=== PATIENT | female | born 1990 | race Caucasian/White ===

== ENCOUNTER 2020-10-07 13:36 | Outpatient (CLI) | payer OTHER, SELFPAY ==
--- NOTE | ~2020-10-07 | US_ITS ---
EXAMINATION: US OB follow up DATE: 10/07/2020 14:23 INDICATION: Routine care during second trimester of TECHNIQUE: Real-time ultrasound of the pelvis was performed. The interpreting radiologist was not pre sent for the study. COMPARISON: None. FINDINGS: There is a single living fetus in breech presentation. The placenta is anterior. heart rate is 150 beats per minute (bpm). The amniotic fluid index is 13.9 cm, which is normal (5th%-95%: 9.8-21. 8 cm at 23 weeks estimated gestational age). The following biometric data were obtained: BPD: 5.7 cm -> 23 weeks 3 days Head circumference: 22.4 cm -> 24 weeks 3 days Abdominal circumference: 19.1 cm -> 23 weeks 6 days Femur length: 4.2 cm -> 23 weeks 4 days These measurements are concordant. Head circumference to abdominal circumference ratio: 1.17 (normal range 1.05-1.21). Estimated weight: 629 g (+/-) 94 g or 1 lbs. 6 oz. (+/-) 3 oz. IMPRESSION: 1. Single living fetus in breech presentation with heart rate of 150 bpm. 2. Gestational age by ultrasound of 23 weeks 6 day(s) +/- 1 week(s) 5 day(s) with ultrasound estimate d date of delivery (DORENE) of 01/28/2021. Estimated weight is 67th percentile by Hadlock criteria when 02/01/2021 is used as the DORENE. Please correlate with clinical information or earlier ultrasounds for most accurate DORENE. 3. Normal amniotic fluid index of 13.9 cm. Reviewed, dictated and finalized at location A. IMPRESSION: 1. Single living fetus in breech presentation with heart rate of 150 bpm. 2. Gestational age by ultrasound of 23 weeks 6 day(s) +/- 1 week(s) 5 day(s) wi th ultrasound estimated date of delivery (DORENE) of 01/28/2021. Estimated we ight is 67th percentile by Hadlock criteria when 02/01/2021 is used as the DORENE. Please correlate with clinical information or earlier ultrasounds for most accu rate DORENE. 3. Normal amniotic fluid index of 13.9 cm.
== END 2020-10-07 13:37 | disposition home or self-care (01) ==
PROVIDERS: PCP Obstetrics & Gynecology; Visit Provider Obstetrics & Gynecology
DX: Z34.92 Encounter for supervision of normal pregnancy, unspecified, second trimester (principal); Z3A.23 23 weeks gestation of pregnancy
CPT/HCPCS: 76816

== ENCOUNTER 2020-10-22 17:32 | Observation (INO) | payer OTHER, SELFPAY ==
--- NOTE | 2020-10-22 17:32 | OBADM ---
This patient, Karen Henderson, admitted to the OB room OB Post 116 for observation. Patient/family oriented to hospital policies and general routines including ID bracelet, bed and alarms, visiting hours, pain management, procedures, bathroom and other care routines, personal items, smoking policy, room service/diet, and visiting hours. Patient/Family are encouraged to report perceived risks to care and to ask questions if they do not understand what they are told or what they should do.
[2020-10-22] MEDS: DEXTROSE 5%/LACTATED RINGERS 1,000 ML 999 ML IV CONT ×2 (18:00→19:02)
[2020-10-22 18:10] VITALS: BMI 20.9
[2020-10-22 18:20] VITALS: BP 93/57; PULSE 79
[2020-10-22 18:45] VITALS: TEMP 36.9
[2020-10-22 18:48] VITALS: BP 103/59; PULSE 68
[2020-10-22 18:53] VITALS: BP 103/59; PULSE 68
--- NOTE | 2020-10-22 20:18 | PC.NURSE ---
Dr. Michaels notifed of pt wanting to go home. Pt feeling much better and denies Nausea, no vomiting during this shift. pt drinking water and has eaten crackers. Orders received for pt to d/c home.
--- NOTE | 2020-10-24 08:17 | PM.OBTRLD ---
OB - Triage/Final Diagnosis Visit Information Comments/Additional reasons for admission: I have assessed the risk for this patient, Karen Henderson, and determined that she would benefit from observation care. Final Diagnosis (1) Hyperemesis gravidarum: Code(s): O21.0 - Mild hyperemesis gravidarum Status: Acute (2) Dehydration: Code(s): E86.0 - Dehydration Status: Acute
== END 2020-10-22 20:49 | disposition home or self-care (01) ==
PROVIDERS: Admitting Provider Obstetrics & Gynecology; PCP Internal Medicine Infectious Disease; Visit Provider Obstetrics & Gynecology
DX: O21.1 Hyperemesis gravidarum with metabolic disturbance (principal); Z3A.25 25 weeks gestation of pregnancy
CPT/HCPCS: 59025; 96360; G0378; G0379; J7121

== ENCOUNTER 2021-01-16 11:09 | Inpatient (IN) | payer OTHER, SELFPAY ==
[2021-01-16] VITALS (93 sets, daily range): BP systolic 69–139; BP diastolic 16–87; PULSE 53–123; RESP 18; TEMP 36.6–37.1; O2SAT 93–100; BMI 24.0
[2021-01-16 12:12] LABS: Basophils Percent Auto 0.2 % (0.2-1.2); Eosinophils Percent Auto 0.3 % (0-4.4); Hemoglobin 11.2 g/dL (12.0-15.0); Immature Granulocyte Absolute 0.05 K/mm3 (0.00-0.031); Immature Granulocyte Percent A 0.5 % (0-0.5); Lymphocytes Percent Auto 11.4 % (18.3-44.2); Mean Corpuscular HGB Conc 32.9 g/dl (32-36); Mean Corpuscular Hemoglobin 29.2 pg (26-34); Mean Corpuscular Volume 88.8 fl (80-100); Mean Platelet Volume 9.4 fl (7.4-10.4); Monocytes Absolute Auto 0.5 K/mm3 (0.1-0.6); Monocytes Percent Auto 5.5 % (2.6-8.5); Neutrophils Absolute Auto 7.9 K/mm3 (1.3-6.7); Neutrophils Percent Auto 82.1 % (45.5-73.1); Platelet Count Result 211 k/mm3 (150-375); Red Blood Count 3.83 M/mm3 (4.2-5.4); Red Cell Distribution Width 13.4 % (11.5-14.5); White Blood Count 9.6 K/mm3 (4.5-10.0)
[2021-01-16] MEDS: LACTATED RINGERS 1,000 ML 125 ML IV CONT (12:19)
[2021-01-16] MEDS: AMPICILLIN 2 GM/NS 100 ML 2 GM/100 ML BAG IVPB (12:21)
[2021-01-16] MEDS: LACTATED RINGERS 1,000 ML 999 ML IV CONT ×2 (12:49→13:47)
[2021-01-16 13:05] LABS: HIV 1/2 Ab P24 Ag Result Negative (Negative)
--- NOTE | 2021-01-16 13:30 | WPDANESEPP ---
Anes - Eval Pre Procedure Procedure: labor pain management Date/Time: 01/16/21 13:30 Surgeon: Renetta Preop Diagnosis: Pain During Labor Pre Op Diagnosis: Leaking fluid Patient Data Age: 30 Gender: F Height: 1.75 m Weight: 74 kg Last Vital Signs Temp 98.8 F 01/16/21 12:48 Pulse 72 01/16/21 13:28 BP 110/65 01/16/21 13:28 Pulse Ox 99 01/16/21 13:29 Allergies Allergy/AdvReac Type Severity Reaction Status Date / Time No Known Drug Allergies Allergy Verified 10/22/20 17:48 Home Medications Medication Instructions Recorded Confirmed Type aspirin 81 mg PO BID 10/22/20 10/22/20 History lamotrigine [Lamictal] 25 mg PO BID 10/22/20 10/22/20 History Laboratory Tests 01/16/21 01/16/21 01/16/21 12:05 12:05 12:05 WBC 9.6 K/mm3 K/mm3 (4.5-10.0) RBC 3.83 M/mm3 L M/mm3 (4.2-5.4) Hgb 11.2 g/dL L g/dL (12.0-15.0) Hct 34.0 % L % (37.0-47.0) MCV 88.8 fl fl (80-100) MCH 29.2 pg pg (26-34) MCHC 32.9 g/dl g/dl (32-36) RDW 13.4 % % (11.5-14.5) Plt Count 211 k/mm3 k/mm3 (150-375) MPV 9.4 fl fl (7.4-10.4) Immature Gran % (Auto) 0.5 % % (0-0.5) Neut % (Auto) 82.1 % H % (45.5-73.1) Lymph % (Auto) 11.4 % L % (18.3-44.2) [place] % (Auto) 5.5 % % (2.6-8.5) Eos % (Auto) 0.3 % % (0-4.4) Baso % (Auto) 0.2 % % (0.2-1.2) Lymph # (Auto) 1.10 K/mm3 K/mm3 (0.9-3.2) [place] # (Auto) 0.5 K/mm3 K/mm3 (0.1-0.6) Eos # (Auto) 0.0 K/mm3 K/mm3 (0-0.3) Baso # (Auto) 0.0 K/mm3 K/mm3 (0.0-0.1) Abs Immat Gran (auto) 0.05 K/mm3 H K/mm3 (0.00-0.031) Absolute Neuts (auto) 7.9 K/mm3 H K/mm3 (1.3-6.7) Absolute Nucleated RBC 0.0 K/mm3 K/mm3 (0.0-0.012) Nucleated RBC % 0.0 % % (0.0-0.2) RPR Pending HIV 1&2 Ab/P24 Ag 4thGn Blood Type AB Positive Antibody Screen Negative 01/16/21 12:05 WBC RBC Hgb Hct MCV MCH MCHC RDW Plt Count MPV Immature Gran % (Auto) Neut % (Auto) Lymph % (Auto) [place] % (Auto) Eos % (Auto) Baso % (Auto) Lymph # (Auto) [place] # (Auto) Eos # (Auto) Baso # (Auto) Abs Immat Gran (auto) Absolute Neuts (auto) Absolute Nucleated RBC Nucleated RBC % RPR HIV 1&2 Ab/P24 Ag 4thGn Negative (Negative) Blood Type Antibody Screen : gestational age (edc 01/28/21) HCG: positive Patient hx anesthesia problems: none Family hx anesthesia problems: none PMFSH Past Medical History Medical History (Updated 01/16/21 @ 13:33 by Martha Redd CRNA) Pain during labor Polysubstance abuse marijuana & meth. Severe bipolar disorder Tobacco abuse Social History Social History Smoking packs per day: 0.5 Smoking cigarettes per day: 10.0 Years smoked: 15 Smoking pack-years: 7.50 Smoking status: Current every day smoker Tobacco type: cigarettes Second hand tobacco smoke exposure: Yes Substance use: current Spiritual care concerns: No Exam Day of Procedure 01/16/21 13:30
[2021-01-16] MEDS: OXYTOCIN 30 UNITS/NS 500 ML 30 UNITS/500 ML BAG IV CONT (14:13)
[2021-01-16 14:18] LABS: Amphetamine Screen Urine Negative (Negative); Barbiturate Screen Urine Negative (Negative); Benzodiazepines Screen Urine Negative (Negative); Cannabinoid Screen Urine Positive (Negative); Cocaine Screen Urine Negative (Negative); Methadone Screen Urine Negative (Negative); Opiate Screen Urine Negative (Negative); Phencyclidine Screen Urine Negative (Negative)
[2021-01-16] MEDS: ePHEDrine sulfate INJ 50 MG/ML AMPUL IV PUSH (14:30)
--- NOTE | 2021-01-16 15:32 | PM.OBPRVD ---
OB - Delivery Note Procedure Route of delivery: Specimen: Yes Quantitative Blood Loss (ml): 200 Anesthesia type: Epidural Disposition: floor Narrative: Patient was prepped and draped in usual manner for this procedure. Maternal expulsive efforts readily delivered vertex and rest of baby without difficulty. Cord was clamped and cut and placenta delivered spontaneously. Baby was passed off the matching machine operator in attendance. Uterus was well contracted with minimal bleeding. Cervix vagina vulva were inspected with no lacerations or tears. [place] Baby Weeks of gestation at delivery: 38 Infant gender: Male
[2021-01-16] MEDS: OXYTOCIN 30 UNITS/NS 500 ML 30 UNITS/500 ML BAG 125 UNITS IV CONT (15:55)
[2021-01-16] MEDS: ONDANSETRON INJ 4 MG/2 ML VIAL IV PUSH (17:04)
[2021-01-16] MEDS: IBUPROFEN 600 MG TABLET PO (19:01)
--- NOTE | 2021-01-16 21:46 | PC.NURSE ---
@ 1814 on 01/16/2021 Patient transferred to post room #279. Support person present (her brother). Oriented to unit, room, information board, rooming in, admission packet and security measures. Patient verbalizes understanding.
[2021-01-16] MEDS: FLUVOXAMINE 100MG TABLET 1 EACH PO (22:27)
[2021-01-16] MEDS: LAMOTRIGINE 100MG TABLET 1 EACH PO (22:28)
--- NOTE | 2021-01-17 04:01 | PHAR ---
HOME FLUVOXAMINE 100MG TABLET - TAKE ON TABLET BY MOUTH EVERY DAY IN THE MORNING & LAMOTRIGINE 100MG PO BID VERIFIED IN THE PHARMACY AND SENT BACK TO OB2ND @ 22:00
[2021-01-17 04:15] VITALS: BP 113/65; PULSE 61; RESP 18; TEMP 37.1; O2SAT 97
[2021-01-17] MEDS: IBUPROFEN 600 MG TABLET PO ×3 (04:29→15:58)
[2021-01-17 04:47] LABS: Hematocrit 32.4 % (37.0-47.0); Hemoglobin 10.1 g/dL (12.0-15.0)
[2021-01-17 07:05] VITALS: BP 124/74; PULSE 52; RESP 18; TEMP 36.4; O2SAT 100
--- NOTE | 2021-01-17 07:45 | PM.OBDSVD ---
DS: Admitting Diagnosis Discharge Date 01/17/2021 Admitting Diagnosis OB - DS: Summary OB Procedures : None OB Procedures Intrapartum: Spontaneous Vag Delivery OB Procedures: : None Time Spent with Patient Time attestation: Total time spent providing and/or coordinating discharge services: DS: Data Data Completed and Pending Labs on day of discharge: Labs from last 24 hours 01/17/21 01/16/21 01/16/21 04:17 13:45 12:05 WBC RBC Hgb 10.1 L Hct 32.4 L MCV MCH MCHC RDW Plt Count MPV Immature Gran % (Auto) Neut % (Auto) Lymph % (Auto) [place] % (Auto) Eos % (Auto) Baso % (Auto) Lymph # (Auto) [place] # (Auto) Eos # (Auto) Baso # (Auto) Abs Immat Gran (auto) Absolute Neuts (auto) Absolute Nucleated RBC Nucleated RBC % Urine Opiates Screen Negative Urine Methadone Screen Negative Ur Barbiturates Screen Negative Ur Phencyclidine Scrn Negative Ur Amphetamine Screen Negative U Benzodiazepines Scrn Negative Urine Cocaine Screen Negative U Cannabinoids Screen Positive A RPR HIV 1&2 Ab/P24 Ag 4thGn Negative Blood Type Antibody Screen 01/16/21 01/16/21 01/16/21 12:05 12:05 12:05 WBC 9.6 RBC 3.83 L Hgb 11.2 L Hct 34.0 L MCV 88.8 MCH 29.2 MCHC 32.9 RDW 13.4 Plt Count 211 MPV 9.4 Immature Gran % (Auto) 0.5 Neut % (Auto) 82.1 H Lymph % (Auto) 11.4 L [place] % (Auto) 5.5 Eos % (Auto) 0.3 Baso % (Auto) 0.2 Lymph # (Auto) 1.10 [place] # (Auto) 0.5 Eos # (Auto) 0.0 Baso # (Auto) 0.0 Abs Immat Gran (auto) 0.05 H Absolute Neuts (auto) 7.9 H Absolute Nucleated RBC 0.0 Nucleated RBC % 0.0 Urine Opiates Screen Urine Methadone Screen Ur Barbiturates Screen Ur Phencyclidine Scrn Ur Amphetamine Screen U Benzodiazepines Scrn Urine Cocaine Screen U Cannabinoids Screen RPR Pending HIV 1&2 Ab/P24 Ag 4thGn Blood Type AB Positive Antibody Screen Negative Discharge Plan Discharge Attending physician on discharge: Brando,Luis M S. Discharging Clinician: Ronny Jackson Anticipated Discharge Date/Time: 01/17/21 07:49 Patient Disposition: Home, Self-Care Activity: as tolerated Diet: as tolerated Discharge Instructions: Education: Mom and Baby Guide Given to: Mother Follow-Up: Call your delivering provider's office for an appointment to be seen in: 3 Weeks Mom and baby should come to the [facility] for the follow-up appointment. Appointment Date/Time: January 20, 2021 at 8:00 am What to expect at your follow-up visit: Physical Assessment Call [phone] if you are unable to keep your appointment time. BREAST CARE: * Wear a snug supportive bra. * For engorgement discomfort: Breast Feeding: * Apply warm moist washcloths * Express milk as needed to relieve engorgement * Wear loose clothing Bottle Feeding: * May apply ice packs * For sore nipples: * Identify correct latch-on * Apply warm moist washcloths before and after nursing * Air dry nipples after nursing * May apply Lansinoh cream to nipples ABDOMINAL INCISION: (if applicable) * Allow incision to air dry * Do NOT use lotions for powders on your incision * When showering, allow soap and water to run over the incision, but do not wash incision EPISIOTOMY/PERINEAL CARE: * Until bleeding stops, use your bc bottle after urinating * Change your pad frequently throughout the day * You may take sitz baths several times a day (fill your bathtub with warm water and soak for 20 minutes.) Do NOT bathe in the water * No tub baths until seen by your physician - You may shower ACTIVITY: * Rest as much as possible. * Do not exercise or lift anything heavier than your baby (such as l
--- NOTE | 2021-01-17 07:50 | PM.OBDSVD ---
DS: Admitting Diagnosis Discharge Date 01/17/21 Admitting Diagnosis OB - DS: Summary OB Procedures : None OB Procedures Intrapartum: Spontaneous Vag Delivery OB Procedures: : None Time Spent with Patient Time attestation: Total time spent providing and/or coordinating discharge services: DS: Data Data Completed and Pending Labs on day of discharge: Labs from last 24 hours 01/17/21 01/16/21 01/16/21 04:17 13:45 12:05 WBC RBC Hgb 10.1 L Hct 32.4 L MCV MCH MCHC RDW Plt Count MPV Immature Gran % (Auto) Neut % (Auto) Lymph % (Auto) [place] % (Auto) Eos % (Auto) Baso % (Auto) Lymph # (Auto) [place] # (Auto) Eos # (Auto) Baso # (Auto) Abs Immat Gran (auto) Absolute Neuts (auto) Absolute Nucleated RBC Nucleated RBC % Urine Opiates Screen Negative Urine Methadone Screen Negative Ur Barbiturates Screen Negative Ur Phencyclidine Scrn Negative Ur Amphetamine Screen Negative U Benzodiazepines Scrn Negative Urine Cocaine Screen Negative U Cannabinoids Screen Positive A RPR HIV 1&2 Ab/P24 Ag 4thGn Negative Blood Type Antibody Screen 01/16/21 01/16/21 01/16/21 12:05 12:05 12:05 WBC 9.6 RBC 3.83 L Hgb 11.2 L Hct 34.0 L MCV 88.8 MCH 29.2 MCHC 32.9 RDW 13.4 Plt Count 211 MPV 9.4 Immature Gran % (Auto) 0.5 Neut % (Auto) 82.1 H Lymph % (Auto) 11.4 L [place] % (Auto) 5.5 Eos % (Auto) 0.3 Baso % (Auto) 0.2 Lymph # (Auto) 1.10 [place] # (Auto) 0.5 Eos # (Auto) 0.0 Baso # (Auto) 0.0 Abs Immat Gran (auto) 0.05 H Absolute Neuts (auto) 7.9 H Absolute Nucleated RBC 0.0 Nucleated RBC % 0.0 Urine Opiates Screen Urine Methadone Screen Ur Barbiturates Screen Ur Phencyclidine Scrn Ur Amphetamine Screen U Benzodiazepines Scrn Urine Cocaine Screen U Cannabinoids Screen RPR Pending HIV 1&2 Ab/P24 Ag 4thGn Blood Type AB Positive Antibody Screen Negative Discharge Plan Discharge Attending physician on discharge: Luis M Michaels Discharging Clinician: Ronny Jackson Anticipated Discharge Date/Time: 01/17/21 07:49 Patient Disposition: Home, Self-Care Activity: as tolerated Diet: as tolerated Discharge Instructions: Education: Mom and Baby Guide Given to: Mother Follow-Up: Call your delivering provider's office for an appointment to be seen in: 3 Weeks Mom and baby should come to the [facility] for the follow-up appointment. Appointment Date/Time: January 20, 2021 at 8:00 am What to expect at your follow-up visit: Physical Assessment Call [phone] if you are unable to keep your appointment time. BREAST CARE: * Wear a snug supportive bra. * For engorgement discomfort: Breast Feeding: * Apply warm moist washcloths * Express milk as needed to relieve engorgement * Wear loose clothing Bottle Feeding: * May apply ice packs * For sore nipples: * Identify correct latch-on * Apply warm moist washcloths before and after nursing * Air dry nipples after nursing * May apply Lansinoh cream to nipples ABDOMINAL INCISION: (if applicable) * Allow incision to air dry * Do NOT use lotions for powders on your incision * When showering, allow soap and water to run over the incision, but do not wash incision EPISIOTOMY/PERINEAL CARE: * Until bleeding stops, use your bc bottle after urinating * Change your pad frequently throughout the day * You may take sitz baths several times a day (fill your bathtub with warm water and soak for 20 minutes.) Do NOT bathe in the water * No tub baths until seen by your physician - You may shower ACTIVITY: * Rest as much as possible. * Do not exercise or lift anything heavier than your baby (such as perez
[2021-01-17] MEDS: POLYSACCHARIDE IRON COMPLEX 150 MG CAPSULE PO (09:58)
[2021-01-17] MEDS: lamoTRIgine 100 MG TABLET PO (09:59)
[2021-01-17] MEDS: MULTIVIT/MIN/PREN/FOL AC/IRON TABLET 1 TAB PO (10:00)
--- NOTE | 2021-01-17 13:16 | WPDANLDPN2 ---
Anes-Prog Note L&D Date/Time: 01/17/21 13:16 Comfortable throughout: labor and delivery Neuraxial method: epidural Neuro status: Neuro function grossly intact. Cardiovascular status: normal Respiratory status: normal Airway patency: baseline Mental status: baseline Post-Op hydration status: normal Vital Signs: Last Vital Signs Temp 36.4 C L 01/17/21 07:05 Pulse 52 L 01/17/21 07:05 Resp 18 01/17/21 07:05 BP 124/74 01/17/21 07:05 Pulse Ox 100 01/17/21 07:05 Pain score (VAS): 0 I/O: Intake & Output 01/16/21 01/17/21 01/17/21 23:59 07:59 15:59 Output Total 400 Balance -400 Post-procedural complaints: none Patient feedback: Patient satisfied with anesthetic care.
[2021-01-17] MEDS: DOCUSATE SODIUM 100 MG CAPSULE PO (15:58)
--- NOTE | 2021-01-17 16:13 | PCCCNOTE ---
Addendum entered by LUL Hirsch 01/18/21 07:06: Received email confirmation from DCFS that they will not take a report. Original Note: Care Coordination Consult: Met with pt. and her brother Sekou today. Pt. lives at home with Sekou and her parents. This is pt.'s 3rd child. FOB is not involved. Pt. has all necessary equipment for baby at home including a crib, car seat, clothing, diapers, and bottles. Has a supportive family. resources were provided. Pt. aware she tested positive for marijuana, also now aware that baby tested positive for marijuana in UDS screen. Meconium is pending. Per nursing pt. did have a positive methamphetamine test at a appointment. Pt. denies any substance use now besides marijuana. Denies a reliance on marijuana. Was offered substance abuse resources but declined. CC informed pt. a DCFS report will be filed and they will determine if they will meet with pt. or provide services. Completed DCFS report # [id number].
--- NOTE | 2021-01-17 16:56 | PM.OBDSVD ---
DS: Admitting Diagnosis Discharge Date 01/17/21 Admitting Diagnosis OB - DS: Summary OB Procedures : None OB Procedures Intrapartum: Spontaneous Vag Delivery OB Procedures: : None Time Spent with Patient Time attestation: Total time spent providing and/or coordinating discharge services: DS: Data Data Completed and Pending Labs on day of discharge: Labs from last 24 hours 01/17/21 04:17 Hgb 10.1 L Hct 32.4 L Discharge Plan Discharge Attending physician on discharge: Luis M Michaels Discharging Clinician: Ronny Jackson Anticipated Discharge Date/Time: 01/17/21 07:49 Patient Disposition: Home, Self-Care Activity: as tolerated Diet: as tolerated Discharge Instructions: Education: Mom and Baby Guide Given to: Mother Follow-Up: Call your delivering provider's office for an appointment to be seen in: 3 Weeks Mom and baby should come to the [facility] for the follow-up appointment. Appointment Date/Time: January 20, 2021 at 8:00 am What to expect at your follow-up visit: Physical Assessment Call [phone] if you are unable to keep your appointment time. BREAST CARE: * Wear a snug supportive bra. * For engorgement discomfort: Breast Feeding: * Apply warm moist washcloths * Express milk as needed to relieve engorgement * Wear loose clothing Bottle Feeding: * May apply ice packs * For sore nipples: * Identify correct latch-on * Apply warm moist washcloths before and after nursing * Air dry nipples after nursing * May apply Lansinoh cream to nipples ABDOMINAL INCISION: (if applicable) * Allow incision to air dry * Do NOT use lotions for powders on your incision * When showering, allow soap and water to run over the incision, but do not wash incision EPISIOTOMY/PERINEAL CARE: * Until bleeding stops, use your bc bottle after urinating * Change your pad frequently throughout the day * You may take sitz baths several times a day (fill your bathtub with warm water and soak for 20 minutes.) Do NOT bathe in the water * No tub baths until seen by your physician - You may shower ACTIVITY: * Rest as much as possible. * Do not exercise or lift anything heavier than your baby (such as laundry or other children.) * Avoid stairs or driving as much as possible. * Do not put anything into the vagina. No douching, tampons, or sexual activity until seen by physician. NOTIFY PHYSICIAN IF YOU HAVE ANY QUESTIONS OR IF ANY OF THE FOLLOWING SYMPTOMS OCCUR: * If your episiotomy or incision becomes red, swollen, or more painful than what you have experienced in the hospital. * If your vaginal bleeding becomes foul smelling. * If your vaginal bleeding becomes more heavy than a period or if your bleeding changes from pink to bright red. However, you may pass an occasional walnut-sized clot once or twice for the first week . * If you experience a sharp, shooting pain in you calves. * If you discover a hard, reddened area on your breast or if you experience flu-like symptoms. DIET: * Eat regular, well-balanced meals. * Drink plenty of fluids daily. If , drink to thirst. Patient Instructions: Antibiotic Form Stand Alone Forms: General Discharge Information Follow-up/Referrals: Luis M Michaels MD [Physician] - 3 Weeks Discharge Medications: New ibuprofen 600 mg Tablet 600 mg PO Q6H PRN (Reason: Cramping) Qty: 20 RF: 0 Continued lamotrigine [Lamictal] 25 mg Tablet 100 mg PO BID RF: 0 fluvoxamine 100 mg Tablet 100 mg PO TID RF: 0 28-800 mg-mcg Tablet 1 tablet PO DAILY RF: 0 Discontinued aspirin 81 mg Tablet 81 mg PO BID RF: 0 Date of admission: 01/16/21 11:09 Primary Care Provider: CarolBrielle Admitting Provider: Ronny Jackson Attending physician
[2021-01-19 09:30] LABS: Rapid Plasma Reagin Non-Reactive (NonReactive)
[2021-01-20 07:51] VITALS: BP 130/79; PULSE 67; RESP 20; TEMP 37.2; O2SAT 99
== END 2021-01-17 17:06 | disposition home or self-care (01) | DRG 560 ==
LOC: ANHOBOP 11:19 → ANHLDR 11:35 → ANHOB2 18:20
PROVIDERS: Admitting Provider Obstetrics & Gynecology; PCP Internal Medicine Infectious Disease; Visit Provider Obstetrics & Gynecology
DX: O99.344 Other mental disorders complicating childbirth (principal); Z37.0 Single live birth; Z3A.38 38 weeks gestation of pregnancy; O36.8330 Maternal care for abnormalities of the fetal heart rate or rhythm, third trimester, not applicable or unspecified; F31.9 Bipolar disorder, unspecified; O99.334 Smoking (tobacco) complicating childbirth; F17.210 Nicotine dependence, cigarettes, uncomplicated; O99.324 Drug use complicating childbirth; F12.10 Cannabis abuse, uncomplicated
CPT/HCPCS: 36415; 80307; 85014; 85018; 85025; 86592; 86703; 86850; 86900; 86901; 88307; A9270; G0432; J0290; J2405; J2590; J2795; J7120

== ENCOUNTER 2021-08-07 13:47 | Emergency (ER) | payer OTHER, SELFPAY ==
[2021-08-07 13:49] VITALS: BP 135/70; PULSE 79; RESP 16; TEMP 36.8; O2SAT 99
== END 2021-08-07 15:38 | disposition left against medical advice (07) ==
PROVIDERS: PCP Internal Medicine Infectious Disease
DX: R10.2 Pelvic and perineal pain (principal)
CPT/HCPCS: 99199

== ENCOUNTER 2023-05-28 11:32 | Emergency (ER) | payer OTHER, SELFPAY ==
--- NOTE | ~2023-05-28 | CT_ITS ---
EXAMINATION: CT lumbar spine wo con DATE: 05/28/2023 13:38 INDICATION: L lower back pain, radiating to thigh . TECHNIQUE: Computed tomography (CT) of the lumbar spine was performed without intravenous contrast. A utomated exposure control and iterative reconstruction technique were employed. The dose-length produ ct was 601.27 mGy-cm. COMPARISON: None. FINDINGS: 5 nonrib-bearing lumbar-type vertebral bodies. Pedicles intact. Normal vertebral body align ment. Vertebral body heights preserved. Mild loss of disc height at L3-4, with mild diffuse bulge and mild central canal narrowing. Moderate loss of disc height at L4-5 with a prominent diffuse annular bulge and a tiny 3 mm central protrusion that contribute to moderate central canal stenosis and moder ate bilateral neural foraminal narrowing. Moderate facet arthropathy at L4-5 and L5-S1. Mild arthropa thy at L3-4. No severe central canal or neural foraminal narrowing. IMPRESSION: No acute fracture or traumatic malalignment in the lumbar spine. Moderate degenerative disc disease, moderate diffuse bulge and tiny central protrusion at L4-5, causi ng moderate central canal and moderate bilateral neural foraminal narrowing at that level. Multilevel facet arthropathy. Reviewed, dictated and finalized at location [facility]. LOGGER IMPRESSION: No acute fracture or traumatic malalignment in the lumbar spine. Moderate degenerative disc disease, moderate diffuse bulge and tiny central pro trusion at L4-5, causing moderate central canal and moderate bilateral neural f oraminal narrowing at that level. Multilevel facet arthropathy.
[2023-05-28 11:35] VITALS: BP 121/69; PULSE 80; RESP 18; TEMP 36.6; O2SAT 96
--- NOTE | 2023-05-28 11:57 | ED.GENADULT ---
HPI - General Adult General Chief complaint: Extremity Injury, Lower Stated complaint: Left Back/Hip Pain x multiple weeks Time Seen by Provider: 05/28/23 11:38 Source: patient Mode of arrival: ambulatory Limitations: no limitations History of Present Illness HPI narrative: this is a 32-year-old female who presents to the ED with chief complaint of left lower back pain for the past couple of weeks. Reports that is radiating into the left hip and left thigh area. Denies any history of back pain. 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 States the pain is worse with walking and with standing directly on the left leg. Denies fevers, chills, nausea, vomiting, groin numbness, weakness the legs, bowel or bladder dysfunction. Denies chronic steroid use or any immunosuppressive conditions. Admits to marijuana use but denies any history of IV drug use. states she has not really tried any medications yet for this pain. Related Data Home Medications Medication Instructions Recorded Confirmed lamotrigine 25 mg tablet (Lamictal) 100 mg PO BID 10/22/20 01/16/21 fluvoxamine 100 mg tablet 100 mg PO TID 01/16/21 01/16/21 vit no.133-ferrous 1 tablet PO DAILY 01/16/21 01/16/21 fumarate 28 mg-folic acid 800 mcg tablet () Allergies Allergy/AdvReac Type Severity Reaction Status Date / Time No Known Drug Allergies Allergy Verified 10/22/20 17:48 Review of Systems Review of Systems: All systems as dictated in [facility] Past Medical History Medical History (Updated 05/28/23 @ 14:41 by Elier Melissa PA-C) Pain during labor Polysubstance abuse marijuana & meth. Severe bipolar disorder Tobacco abuse Social History Social History Smoking packs per day: 0.5 Smoking cigarettes per day: 10.0 Years smoked: 15 Smoking pack-years: 7.50 Smoking status: Current every day smoker Tobacco type: cigarettes Second hand tobacco smoke exposure: Yes Substance use: current Spiritual care concerns: No Exam Narrative: GENERAL: Well-appearing, well-nourished, and in no acute distress. HEAD: Normocephalic, atraumatic. EYES: PERRLA and EOMI. ENT: Nares clear, no rhinorrhea or epistaxis. Mucous membranes moist. Oropharynx without tonsillar hypertrophy exudate or other lesions. NECK: Supple. No adenopathy or masses. CHEST: No respiratory distress. Clear to auscultation. No wheezes rales or rhonchi HEART: Regular rate and rhythm. No murmur heard. Normal peripheral pulses. ABDOMEN: Soft, nontender, nondistended, normal active bowel sounds. MSK: Moderate tenderness to the left lower paraspinal muscles of the lumbar spine. Tenderness around the left SI as well. No midline tenderness throughout the spine. Straight leg raise on the left equivocal. Straight leg raise on the right negative. SKIN: Warm, dry, no rash. NEURO: Alert and oriented x3. No focal deficits. No saddle anesthesia. 5/5 strength and sensation in the upper and lower extremities. PSYCH: Normal mood and affect. Course Vital Signs Vital signs: Vital Signs Temperature 97.9 F 05/28/23 11:35 Pulse Rate 80 05/28/23 11:35 Respiratory Rate 18 05/28/23 11:35 Blood Pressure 121/69 05/28/23 11:35 Pulse Oximetry 96 05/28/23 11:35 Oxygen Delivery Room Air 05/28/23 11:35 Temperature 97.9 F 05/28/23 11:35 Pulse Rate 76 05/28/23 15:14 Respiratory Rate 20 05/28/23 15:14 Blood Pressure 133/64 05/28/23 15:14 Pulse Oximetry 100 05/28/23 15:14 Oxygen Delivery Room Air 05/28/23 11:35 Medical Decision Making [facility] Narrative Medical decision making narrative: This is a 32-year-old female who presents to the ED with chief complaint of low back pain for the past couple of weeks. Vitals are normal. exam shows some tenderness to the left lower paraspinal muscles and left SI. No red flag back signs. Ct yovanny
[2023-05-28] MEDS: ACETAMINOPHEN 500 MG TABLET 1000 MG PO (12:54)
[2023-05-28] MEDS: IBUPROFEN 400 MG TABLET 800 MG PO (12:56)
[2023-05-28 15:14] VITALS: BP 133/64; PULSE 76; RESP 20; O2SAT 100
== END 2023-05-28 15:15 | disposition home or self-care (01) ==
PROVIDERS: Emergency Provider Physician Assistant
DX: M51.16 Intervertebral disc disorders with radiculopathy, lumbar region (principal); F17.210 Nicotine dependence, cigarettes, uncomplicated
CPT/HCPCS: 72131; 81025; 99284; A9270

== ENCOUNTER 2023-06-23 13:49 | Outpatient (CLI) | payer OTHER, SELFPAY ==
[2023-06-23 19:09] LABS: Rheumatoid Factor < 12.0 IU/ML (<12)
[2023-06-23 19:19] LABS: Hematocrit 43.5 % (37.0-47.0); Hemoglobin 13.8 g/dL (12.0-15.0); Mean Corpuscular HGB Conc 31.7 g/dl (32-36); Mean Corpuscular Hemoglobin 30.3 pg (26-34); Mean Corpuscular Volume 95.6 fl (80-100); Mean Platelet Volume 9.6 fl (7.4-10.4); Platelet Count Result 213 k/mm3 (150-375); Red Blood Count 4.55 M/mm3 (4.2-5.4); Red Cell Distribution Width 12.6 % (11.5-14.5); White Blood Count 6.9 K/mm3 (4.5-10.0)
[2023-06-23 19:44] LABS: Alanine Aminotransferase 12 U/L (6-35); Albumin Level 4.4 g/dL (3.5-5.1); Alkaline Phosphatase 78 U/L (38-126); Anion Gap 3 mmol/L (8-16); Aspartate Amino Transferase 49 U/L (14-36); Bilirubin,Total 0.4 mg/dL (0.2-1.3); Blood Urea Nitrogen 17 mg/dL (7-17); Calcium 9.6 mg/dL (8.4-10.2); Carbon Dioxide 30 mmol/L (22-30); Chloride 107 mmol/L (98-107); Cholesterol 144 mg/dL (0-200); Estimated Glomerular Filt Rate > 60; Glucose 70 mg/dL (65-110); HDL Direct 62 mg/dL; Sodium 140 mmol/L (137-145); Triglycerides 100 mg/dL (<150)
[2023-06-23 19:46] LABS: Vitamin D 25 Hydroxy 42.6 ng/mL
[2023-06-23 19:55] LABS: LDL Cholesterol Direct 62 mg/dL
[2023-06-23 20:13] LABS: Thyroid Stimulating Hormone 0.708 uIU/mL (0.465-4.680)
[2023-06-23 22:33] LABS: Folic Acid 10.9 ng/mL (2.76->20)
[2023-06-29 11:57] LABS: Anti Nuclear Antibody Pattern Nuclear, Speckled; Anti Nuclear Antibody Titer 1:40 (Negative)
[2023-06-29 16:04] LABS: HLA B27 Negative (Negative)
== END 2023-06-23 13:50 | disposition home or self-care (01) ==
LOC: ANHBWCLAB 13:50
PROVIDERS: PCP Nurse Practitioner Adult Health; Visit Provider Nurse Practitioner Adult Health
DX: M19.90 Unspecified osteoarthritis, unspecified site (principal); R53.83 Other fatigue; Z13.9 Encounter for screening, unspecified; M47.9 Spondylosis, unspecified
CPT/HCPCS: 36415; 80053; 80061; 82306; 82607; 82746; 84443; 85027; 86038; 86039; 86430; 86812

== ENCOUNTER 2023-08-09 10:30 | Outpatient (RCR) | payer OTHER, SELFPAY ==
--- NOTE | 2023-07-12 16:25 | PCPTNOTE ---
pt did not show for today's PT evaluation appt.
--- NOTE | 2023-07-26 13:31 | OPREHPOC ---
Outpatient Therapy Plan of Care This is a Multidisciplinary Plan of Care that may contain components documented by all disciplines (PT, OT, and ST.) PT Problem 1 PT Problem #1 Knowledge Deficit PT Goal 1 Goal 1* indep with HEP 2* correct posture of back with exercises PT Problem 2 PT Problem #2 Pain PT Goal 1 Goal 1* pain rating at worst of 2/10 2* pt report times of NO pain 3* self assessment Oswestry score of 10% limitation PT Problem 3 PT Problem #3 Impaired Strength PT Goal 1 Goal 1* pt transfer sit to stand without an increase in pain 2* increase trunk strength: pt perform sitting ball exercises x 15 reps with good stability PT Problem 4 PT Problem #4 Impaired Flexibility PT Goal 1 Goal improve flexibility of L hip, to decrease imbalance R/L hips, to improve position of spine: 1* hamstring with supine SLR 60' 2* piriformis supine with hip and knee > 90' pt report NOT tight feeling in hip 3* anterior hip/quad with prone knee flexion 145'
--- NOTE | 2023-07-26 13:31 | PTOPEVAL1 ---
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 Gradual onset without injury. Her current job requires lifting, pulling, pushing and physical tasks, up to 100# lifting per pt. She does not perform any fitness activity. Self assessment with functional mobility of Oswestry of 16% limitation in activity. With the evaluation: she has poor standing position of trunk with R forward rotation; tightness over L hamstring, quad and anterior hip and piriformis muscles; weakness over trunk; spasms over thoracic paraspinals on R with forward rotation. Skilled PT services are indicated for modalities to decrease pain and spasms; therapeutic exercises to increase strength and flexibility of trunk and hips, with education for HEP and posture correction. Plan of Care Interventions Elec
--- NOTE | 2023-08-11 14:00 | PCPTNOTE ---
Patient was a No Show for Today's appointment.
--- NOTE | 2023-08-16 13:18 | PCPTNOTE ---
Pt no showed visit today for 2nd time. LM of appt time and date of next visit.
--- NOTE | 2023-08-18 10:51 | PCPTNOTE ---
Pt. did not show for her appointment this date. Left voicemail letting pt. know she would be discharged from therapy at this time if we don't hear back from her by the end of the day.
--- NOTE | 2023-08-19 10:26 | PCPTNOTE ---
called pt and left voice message: reeval appt next week--? attend or not; d/c PT if she does not call by the end of the day.
--- NOTE | 2023-08-23 15:50 | PTOPDC ---
Assessment and note entered by Jenny Brewer, PT Discharge Information Assessment Status Discharge - Pt Not Present Diagnosis low back pain Onset Mar 2023 Assessment PT Clinical Summary Karen has received 4 PT sessions, from July 25 to August 08. She did not show for 3 appointments. Therefore, she will be discharged at this time. Discharge PT. The goals were not addressed. Plan of Care PT Services Indicated No
== END 2023-08-23 17:13 | disposition home or self-care (01) ==
LOC: ANHPT 10:30
PROVIDERS: PCP Nurse Practitioner Adult Health; Visit Provider Nurse Practitioner Adult Health
DX: M54.50 Low back pain, unspecified (principal)
CPT/HCPCS: 97014; 97110; 97112; 97140; 97161; 97530; 99199; G0283

== ENCOUNTER 2024-05-07 15:45 | Outpatient (RCR) | payer OTHER, SELFPAY ==
--- NOTE | 2024-03-28 10:51 | OPREHPOC ---
Outpatient Therapy Plan of Care This is a Multidisciplinary Plan of Care that may contain components documented by all disciplines (PT, OT, and ST.) PT Problem 1 PT Problem #1 Knowledge Deficit PT Goal 1 Goal / Goal Update *indep with HEP * correct body mechanics with lifting from the floor and simulated work tasks Target Visit 10 PT Problem 2 PT Problem #2 Pain PT Goal 1 Goal / Goal Update 1* pain rating at worst of 4/10 2* radicular pain to L knee at worst 3* self assessment Oswestry rating of 10% limitation in activity 4* pt report with sleeping, awaken 1x/night due to pain Target Visit 10 PT Problem 3 PT Problem #3 Impaired Strength PT Goal 1 Goal / Goal Update increase strength of trunk and hips, to improve stability to spine and trunk 1* pt perform 20 reps of mat strengthening exercises 2* pt perform 20 reps of sitting on the ball exercises with good stability Target Visit 10
--- NOTE | 2024-03-28 10:51 | PTOPEVAL1 ---
Assessment and note entered by Jenny Brewer, PT Evaluation Information Assessment Status Evaluation ICD-10 Condition Codes (PT) Pain in low back M54.50,M54.16 Onset September 2023 Subjective Information chronic back pain, increased; now into L ankle, was not there before; under the care of pain management- Dr Mcpherson, saw for initial eval only- request MRI and to have steroid injections saw neurosurgeon, Dr Cole, waiting for MRI to see if surgical candidate or not. 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 Radicular pain into L LE to ankle 50% of the day. She is able to do her usual home and work tasks, with increase pain and need to stop and take breaks due to pain. Oswestry self rating of 18% limitation. She is under the management of neurosurgeon and pain management. With the evaluation: she has good flexibility of trunk and hips, with good strength; stands with sway back posture; Skilled PT services are indicated for modalities for pain control, therapeutic exercises to increase trunk and hip strength with education for HEP and body mechanics--work positions and home activities. Plan of Care Interventions Electrical Stimulation,Hot Pack/Cold Pack,Manual Therapy,Mechanical Traction,Neuro Re-education, Patient/Caregiver Education,Therapeutic Activities, Therapeutic Exercise,Ultrasound,Other Other Interventions taping, dry needling PT Services Indicated Yes Treatment Frequency and 1-2x/wk for 10 visits Duration These treatments will address the objective and functional deficits as defined above. The patient will be advanced safely and appropriately in order for the patient to progress towards his/her prior level of function. Additional exercises will be introduced and as well as a comprehensive home exercise program upon discharge, if needed, ?to ensure carryover of functional gains achieved in the clinic. This treatment plan has been reviewed and agreement upon by the patient.
--- NOTE | 2024-04-02 15:34 | PCPTNOTE ---
Pt NS because she had wrong day down. Reminded her of next appt day and time.
--- NOTE | 2024-04-19 11:32 | PCPTNOTE ---
Pt called to cancel her appointment due to being sick.
--- NOTE | 2024-05-03 10:57 | OPREHPOC ---
Outpatient Therapy Plan of Care This is a Multidisciplinary Plan of Care that may contain components documented by all disciplines (PT, OT, and ST.) PT Problem 1 PT Problem #1 Knowledge Deficit PT Goal 1 Goal / Goal Update *indep with HEP * correct body mechanics with lifting from the floor and simulated work tasks 05-03-24 progress goals met continue towards goals to progress education Target Visit 14 PT Problem 2 PT Problem #2 Pain PT Goal 1 Goal / Goal Update 1* pain rating at worst of 4/10 2* radicular pain to L knee at worst 3* self assessment Oswestry rating of 10% limitation in activity 4* pt report with sleeping, awaken 1x/night due to pain ; 05-03-24 progress goals not met; improved with #1 to 10/16; continue towards goals Target Visit 14 PT Problem 3 PT Problem #3 Impaired Strength PT Goal 1 Goal / Goal Update increase strength of trunk and hips, to improve stability to spine and trunk 1* pt perform 20 reps of mat strengthening exercises 2* pt perform 20 reps of sitting on the ball exercises with good stability 05-03-24 progress goals met NEW GOALS: 1* bilateral UE box lift, floor/waist height 40# x 3 reps 2* pt perform standing hip exercises without UE support x 20 reps with good stability 3* single leg standing R and L x 20 seconds with good stability Target Visit 14
--- NOTE | 2024-05-03 10:57 | PTOPPROG ---
Assessment and note entered by Jenny Brewer, PT Assessment Status Progress ICD-10 Condition Codes (PT) Pain in low back M54.50,Radiculopathy, lumbar region M54.16 Onset September 2023 Subjective Information therapy is helping; the stretching, exercises and traction help; at work, lifting correctly and keep feet pointed forward/not twisting my back; saw last week---to have MRI and pain management appointments scheduled- awaiting insurance auth to do; would like to continue for more therapy. 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 She is awaiting insurance approval for MRI and pain management referral. 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 The goals were partially achieved. Continue PT treatment. Plan of Care Interventions Electrical Stimulation,Hot Pack/Cold Pack,Manual Therapy,Mechanical Traction,Neuro Re-education, Patient/Caregiver Education,Therapeutic Activities ,Therapeutic Exercise,Ultrasound,Other Other Interventions taping, dry needling PT Services Indicated Yes Treatment Frequency and 1-2x/wk for 6 visits Duration These treatments will address the objective and functional deficits as defined above. The patient will be advanced safely and appropriately in order for the patient to progress towards his/her prior level of function. Additional exercises will be introduced and as well as a comprehensive home exercise program upon discharge, if needed, ?to ensure carryover of functional gains achieved in the clinic. This treatment plan has been reviewed and agreement upon by the patient.
--- NOTE | 2024-05-15 13:09 | PCPTNOTE ---
Cx due to weather, ice/snow. AKS
--- NOTE | 2024-06-11 08:50 | PTOPDC ---
Assessment and note entered by Jenny Brewer, PT Assessment Status Discharge - Pt Not Present ICD-10 Condition Codes (PT) Pain in low back M54.50,Radiculopathy, lumbar region M54.16 Onset September 2023 Subjective Information pt was not seen this date. Assessment PT Clinical Summary Karen has received 9 PT sessions, from March 28 to May 07. She did not show for 1 and called/canceled 2 appointments. Discharge PT due to not attending. The goals were not addressed. Plan of Care PT Services Indicated No
== END 2024-06-11 12:42 | disposition home or self-care (01) ==
LOC: ANHPT 15:45
PROVIDERS: PCP Nurse Practitioner Adult Health; Visit Provider Neurological Surgery
DX: M51.16 Intervertebral disc disorders with radiculopathy, lumbar region (principal)
CPT/HCPCS: 97012; 97014; 97110; 97112; 97161; 97530; G0283

== ENCOUNTER 2024-05-08 16:16 | Emergency (ER) | payer OTHER, SELFPAY ==
--- NOTE | ~2024-05-08 | CT_ITS ---
EXAMINATION: CT facial bones wo con DATE: 05/08/2024 17:12 INDICATION: tooth extraction today, concern for deep trauma . TECHNIQUE: Computed tomography (CT) of the facial bones and maxillofacial region was performed withou t intravenous contrast. Automated exposure control and iterative reconstruction technique were employ ed. The dose-length product was 343.97 mGy-cm. COMPARISON: None. FINDINGS: Soft Tissues: No significant superficial soft tissue swelling. Facial bones: Recently extracted left maxillary molar, with fracture lines surrounding the root cavi ties involving both the medial and lateral cortices of the maxilla. The cavities of the extracted too th extend into the left maxilla. No lytic or blastic process. Eyes: The globes are intact. The soft tissue planes of the orbits are maintained. Paranasal Sinuses: Minimal mucosal thickening and subtle aerated secretions in the inferior left max illary sinus, small retention cyst/sinus polyp in the right posterior ethmoid air cell, the remaining aerated spaces are clear. Foreign Bodies: No radiopaque foreign bodies. Other Findings: Multifocal caries. Multiple chronically absent teeth.. IMPRESSION: Extracted left maxillary molar, with fractures involving the medial and lateral cortices of the adjac ent maxillary bone. The root cavities of the extracted tooth extend into the left maxillary sinus, where there is minimal mucosal thickening and subtle aerated secretions, raising concern for traumatic maxillary sinus invo lvement. Reviewed, dictated and finalized at location K. [employer] AUDITOR IMPRESSION: Extracted left maxillary molar, with fractures involving the medial and lateral cortices of the adjacent maxillary bone. The root cavities of the extracted tooth extend into the left maxillary sinus, where there is minimal mucosal thickening and subtle aerated secretions, [place] mars concern for traumatic maxillary sinus involvement.
[2024-05-08 16:22] VITALS: BP 128/92; PULSE 72; RESP 18; TEMP 36.9; O2SAT 98
--- NOTE | 2024-05-08 16:27 | ED_ITS ---
HPI - General Adult General Chief complaint: Unspecified <Eve Pham PA-C - Last Filed: 05/08/24 16:28> Stated complaint: had tooth extracted, sinuses perforated <Eve Pham PA-C - Last Filed: 05/08/24 16:28> Time Seen by Provider: 05/08/24 22:56 <Eve Pham PA-C - Last Filed: 05/08/24 16:28> Focused HPI: 33-year-old female presents emergency department after tooth extraction at [facility] at 10:00 a.m.. Patient states she has been having drainage from her left nostril that is blood tinged since the procedure and is concerned that there is a perforation in her sinus. GENERAL: Well-appearing, well-nourished, and in no acute distress. HEAD: Normocephalic, atraumatic. CHEST: Clear to auscultation. ?No respiratory distress. HEART: Regular rate and rhythm.? NEURO: ?Alert and oriented x3. Patient screened in triage and initial orders placed.? ?Additional care and disposition to be based upon?diagnostic testing and treatment. <Eve Pham PA-C - Last Filed: 05/08/24 16:28> Related Data Home medications: Home Medications ?Medication ?Instructions ?Recorded ?Confirmed ?Last Taken ?Type fluvoxamine 100 mg tablet 100 mg PO TID 01/16/21 09/12/23 01/16/21 08:30 History lamotrigine 25 mg tablet (Lamictal) 100 mg PO BID 06/23/23 09/12/23 Unknown History clonidine HCl 0.2 mg tablet 0.2 mg PO DAILY 02/09/24 Unknown History cyproheptadine 4 mg tablet 4 mg PO Q4H 02/09/24 Unknown History <MILLI Sanchez Last Filed: 05/08/24 16:28> Allergies/adverse reactions: Allergies Allergy/AdvReac Type Severity Reaction Status Date / Time No Known Allergies Allergy Verified 05/08/24 16:26 <MILLI Sanchez Last Filed: 05/08/24 16:28> PMFSH Past Medical History Medical History: Medical History Head ache Arthritis Anxiety Severe bipolar disorder Polysubstance abuse marijuana Tobacco abuse Pain during labor <MILLI Sanchez Last Filed: 05/08/24 16:28> Surgical History Surgical History: Surgical History H/O dilation and curettage <MILLI Sanchez Last Filed: 05/08/24 16:28> Family History Family History: Family History Father Depression Alcoholism Hypertension Mother Diabetes mellitus Hypertension Depression Heart disease Sibling Asthma Depression Alcoholism Cerebrovascular accident Grandparent Diabetes mellitus Heart disease Cerebrovascular accident Thyroid disorder Hypertension Depression Grandparent Hypertension <MILLI Sanchez Last Filed: 05/08/24 16:28> Social History Social History: Social History Social History: sexually active Smoking packs per day: 1 Smoking cigarettes per day: 20.0 Years smoked: 15 Smoking pack-years: 15.00 Smoking status: Current every day smoker Tobacco type: cigarettes Second hand tobacco smoke exposure: Yes Alcohol intake: current Alcohol use details: vodka a few on weekends Substance use: current Substance use type: marijuana Do You Feel Safe in your Home?: Yes Lack of Transportation: No Lack of Food: Never True Current Housing: I Have Housing Concerned About Future Housing: No Difficulty Paying Gas/Electric Bills: No Difficulty Paying for Meds: No Currently Unemployed: No Education: High School Diploma/GED Difficulty w/ Childcare or Family Care: No Spiritual care concerns: No Agree to blood products: Yes <MILLI Sanchez Last Filed: 05/08/24 16:28> Exam Narrative: APPEARANCE: No apparent distress. Head: focal exam of the oral cavity shows multiple missing teeth and poor dentition. She has a open socket that communicates with maxillary sinus. EYES: EOMI, NOSE: Atraumatic NECK: Trachea midline RESPIRATORY: No increased rate of breathing CARDIOVASCULAR: RRR, ABDOMINAL: Non-distended MUSCULOSKELETAl: No obvious deformities NEURO: Alert. Moving 4/4 extremities SKIN:: Warm, dry. Normal color PSYCHIATRIC: Normal affect <Tom Mackey MD - Last Filed: 05/08/24 23:37> Course Vital Signs Vital signs: Vital Signs Temperature 98.5 F 05/08/24 16:22 Pulse Rate 72 05/08/24 16:22 Respiratory Rate 18 05/08/24 16:22 Blood Pressure 128/92 H 05/08/24 16:22 Pulse Oximetry 98 05/08/24 16:22 Oxygen Delivery Room Air 05/08/24 16:22 Temperature 98.5 F 05/08/24 16:22 Pulse Rate 82 05/08/24 22:32 Respiratory Rate 17 05/08/24 22:32 Blood Pressure 127/74 05/08/24 22:32 Pulse Oximetry 100 05/08/24 22:32 Oxygen Delivery Room Air 05/08/24 16:22 <Eve Pham PA-C - Last Filed: 05/08/24 16:28> Vital Signs Temperature 98.5 F 05/08/24 16:22 Pulse Rate 72 05/08/24 16:22 Respiratory Rate 18 05/08/24 16:22 Blood Pressure 128/92 H 05/08/24 16:22 Pulse Oximetry 98 05/08/24 16:22 Oxygen Delivery Room Air 05/08/24 16:22 Temperature 98.5 F 05/08/24 16:22 Pulse Rate 82 05/08/24 22:32 Respiratory Rate 17 05/08/24 22:32 Blood Pressure 127/74 05/08/24 22:32 Pulse Oximetry 100 05/08/24 22:32 Oxygen Delivery Room Air 05/08/24 16:22 <Tom Mackey MD - Last Filed: 05/08/24 23:37> Medical Decision Making MDM Narrative Medical decision making narrative: -Course: 33-year-old female presenting with sinus communication after pulled tooth. This was discussed with ENT Dr. Dwight HELLER and there is no intervention made at this time. She needs to contact her dentist and can return to a physician for antibiotics if she develops signs of sinusitis. This was explained to patient and her boyfriend. The patient was given Toradol and Dilaudid for pain control. The boyfriend was frustrated and verbally aggressive including swearing at the MD about how we did not do anything despite waiting here for 9 hours. They were then escorted out. <Tom Mackey MD - Last Filed: 05/08/24 23:37> Vital Signs Vital Signs: Vital Signs Temperature 98.5 F 05/08/24 16:22 Pulse Rate 72 05/08/24 16:22 Respiratory Rate 18 05/08/24 16:22 Blood Pressure 128/92 H 05/08/24 16:22 Pulse Oximetry 98 05/08/24 16:22 Oxygen Delivery Room Air 05/08/24 16:22 Temperature 98.5 F 05/08/24 16:22 Pulse Rate 82 05/08/24 22:32 Respiratory Rate 17 05/08/24 22:32 Blood Pressure 127/74 05/08/24 22:32 Pulse Oximetry 100 05/08/24 22:32 Oxygen Delivery Room Air 05/08/24 16:22 <Eve Pham PA-C - Last Filed: 05/08/24 16:28> Vital Signs Temperature 98.5 F 05/08/24 16:22 Pulse Rate 72 05/08/24 16:22 Respiratory Rate 18 05/08/24 16:22 Blood Pressure 128/92 H 05/08/24 16:22 Pulse Oximetry 98 05/08/24 16:22 Oxygen Delivery Room Air 05/08/24 16:22 Temperature 98.5 F 05/08/24 16:22 Pulse Rate 82 05/08/24 22:32 Respiratory Rate 17 05/08/24 22:32 Blood Pressure 127/74 05/08/24 22:32 Pulse Oximetry 100 05/08/24 22:32 Oxygen Delivery Room Air 05/08/24 16:22 <Tom Mackey MD - Last Filed: 05/08/24 23:37> Discharge Plan Discharge Clinical Impression: Pain of tooth socket <Eve Pham PA-C - Last Filed: 05/08/24 16:28> Patient Disposition: Home, Self-Care <Eve Pham PA-C - Last Filed: 05/08/24 16:28> Condition: Stable <Eve Pham PA-C - Last Filed: 05/08/24 16:28> Instructions: Antibiotic Form, Toothache (ED) <Eve Pham PA-C - Last Filed: 05/08/24 16:28> Additional Instructions: Please follow-up with the dentist who performed her procedure. Use Motrin and Tylenol for pain control. If you develop signs of sinusitis including facial pressure fevers or purulent drainage return to a physician to obtain antibiotics. <Eve Pham PA-C - Last Filed: 05/08/24 16:28> Patient Language: Mohawk <Eve Pham PA-C - Last Filed: 05/08/24 16:28> Prescriptions: No Action clonidine HCl 0.2 mg tablet 0.2 mg PO DAILY cyproheptadine 4 mg tablet 4 mg PO Q4H lamotrigine [Lamictal] 25 mg tablet 100 mg PO BID fluvoxamine 100 mg Tablet 100 mg PO TID <Eve Pham PA-C - Last Filed: 05/08/24 16:28> Follow-up/Referrals: Tracey Clifton APRN [Primary Care Provider] - <Eve Pham PA-C - Last Filed: 05/08/24 16:28>
[2024-05-08 22:32] VITALS: BP 127/74; PULSE 82; RESP 17; O2SAT 100
[2024-05-08] MEDS: KETOROLAC 30 MG/ML VIAL (*BKC) IM (23:41)
[2024-05-08] MEDS: HYDROmorphone HCL INJ (*CRX) 1 MG/ML SYR 0.5 MG IV PUSH (23:41)
== END 2024-05-08 23:45 | disposition home or self-care (01) ==
PROVIDERS: Emergency Provider Emergency Medicine; PCP Nurse Practitioner Adult Health
DX: K08.89 Other specified disorders of teeth and supporting structures (principal); F31.9 Bipolar disorder, unspecified; F17.210 Nicotine dependence, cigarettes, uncomplicated
CPT/HCPCS: 70486; 96372; 96374; 99284; J1171; J1885

== ENCOUNTER 2024-05-29 07:05 | Day surgery (SDC) | payer OTHER, SELFPAY ==
[2024-05-10 09:20] VITALS: BMI 22.1
--- NOTE | ~2024-05-29 | XR_ITS ---
INTRAOPERATIVE FLUOROSCOPY: CLINICAL HISTORY: 33 years old Female; LEFT L4-5,L5-S1 TRANSFORAMINAL EPIDURAL STEROID INJ PROCEDURE COMMENTS: Limited intraoperative fluoroscopy of the lumbar spine was performed. CUMULATIVE DOSE: 2.79 mGy FLUOROSCOPY TIME: 10.1 seconds FINDINGS/IMPRESSION: Please refer to operative note for further details. Reviewed, dictated and finalized at location [facility]. M HEATING INST[employer]
--- NOTE | 2024-05-29 05:35 | PM.HPGS ---
History of Present Illness History of Present Illness Consent: Risks, benefits, and alternatives have been discussed and questions answered. Patient agrees to proceed with procedure. Chief complaint: Intervertebral disc disorders w/radiculopathy, Narrative: Karen Henderson is a 33 year old female with chronic, recalcitrant and disabling left lumbosacral low back and lower extremity pain secondary to herniated nucleus pulposus/ neural foraminal stenosis with failure to respond to aggressive conservative measures including PT, oral and topical analgesics, opioid and nonopioid analgesics, rest, time and activity/behavioral modification over the past 6-12 months or longer who presents for left-sided L4-5, L5-S1 transforaminal epidural steroid injections under fluoroscopic guidance and with contrast control. patient has yet to repeat MRI studies as recommended by her surgeon. She has just recently completed physical therapy without benefit. Review of Systems Review of Systems: Patient denies any new infectious, allergic, cardiopulmonary, neurologic or constitutional symptoms or changes in activity tolerance or exercise capacity including new or progressive SOB/REYNOLDS, peripheral edema, productive cough, dysuria, nausea/vomiting, diarrhea, weight change, fevers/chills/night sweats, new or progressive neurologic deficit, cognitive or mood changes since last seen, except as documented in the HPI. All systems reviewed & are unremarkable except as noted in HPI and below PMFSH Past Medical History Medical History Head ache Arthritis Anxiety Severe bipolar disorder Polysubstance abuse marijuana Tobacco abuse Pain during labor Surgical History Surgical History H/O dilation and curettage Family History Family History Father Depression Alcoholism Hypertension Mother Diabetes mellitus Hypertension Depression Heart disease Sibling Asthma Depression Alcoholism Cerebrovascular accident Grandparent Diabetes mellitus Heart disease Cerebrovascular accident Thyroid disorder Hypertension Depression Grandparent Hypertension Social History Social History Social History: sexually active Smoking packs per day: 1 Smoking cigarettes per day: 20.0 Years smoked: 15 Smoking pack-years: 15.00 Smoking status: Current every day smoker Tobacco type: cigarettes Second hand tobacco smoke exposure: Yes Alcohol intake: current Alcohol use details: vodka a few on weekends Substance use: current Substance use type: marijuana Do You Feel Safe in your Home?: Yes Lack of Transportation: No Lack of Food: Never True Current Housing: I Have Housing Concerned About Future Housing: No Difficulty Paying Gas/Electric Bills: No Difficulty Paying for Meds: No Currently Unemployed: No Education: High School Diploma/GED Difficulty w/ Childcare or Family Care: No Spiritual care concerns: No Agree to blood products: Yes Meds Home Medications and Allergies Home Medications ?Medication ?Instructions ?Recorded ?Confirmed ?Type fluvoxamine 100 mg tablet 100 mg PO TID 01/16/21 05/10/24 History lamotrigine 25 mg tablet (Lamictal) 100 mg PO BID 06/23/23 05/10/24 History clonidine HCl 0.2 mg tablet 0.2 mg PO DAILY 02/09/24 05/10/24 History cyproheptadine 4 mg tablet 4 mg PO Q4H 02/09/24 05/10/24 History medroxyprogesterone 150 mg/mL 150 mg IM .once every 3 months 05/10/24 05/10/24 History intramuscular suspension Allergies Allergy/AdvReac Type Severity Reaction Status Date / Time No Known Allergies Allergy Verified 05/10/24 09:19 Exam Narrative: The patient's physical exam is essentially unchanged from prior examination on 02/28/2024. Specifically, patient demonstrates normal lung capacity, tidal volume and respiratory rate without wheezes, crackles, rales or rubs. Heart rate and rhythm are regular without murmurs, gallops or rubs. No JVD. Pulses 2+ globally without increasing peripheral edema. AAOx3 with no evidence of confusion, intoxication or altered mental state, NC/AT without acute distress or altered consciousness. Speech, cognition, mood, insight and judgment at baseline and within normal limits. Assessment and Plan Assessment and plan (1) Lumbar disc herniation with radiculopathy: Code(s): M51.16 - Intervertebral disc disorders with radiculopathy, lumbar region Status: Acute Plan proceed as planned with left L4-5, L5-S1 transforaminal epidural steroid injection under fluoroscopic guidance with contrast control.
--- NOTE | 2024-05-29 05:39 | WPDHPUPDATE1 ---
History and Physical Update Update Date/Time: 05/29/24 05:39 History and Physical has been reviewed, including an updated exam of the patient. There are NO changes in the patient's condition. Risks, benefits, and alternatives have been discussed and questions answered. Patient agrees to proceed with procedure.
--- NOTE | 2024-05-29 05:40 | P.OP_ITS ---
Procedure Note - Detailed Date of Procedure 05/29/24 Pre-op Diagnosis Intervertebral disc disorders w/radiculopathy, Post-op Diagnosis Same Procedure Performed Left Lumbar Transforaminal Epidural Steroid Injection under Fluoroscopic Gu idance and with Contrast Control at L4-5, L5-S1. Surgeon Zaid Mcpherson MD Anesthesia Local Description of Procedure INFORMED CONSENT: Risks, benefits and alternatives to the procedure were discussed in detail with the patient who expressed explicit understanding and consent to proceed. Patient was informed verbally and in written form regarding the risks associated with the procedure including the low risk of serious infection, bleeding/bruising, allergic reaction, nerve or organ injury, paralysis, procedural site pain or discomfort, worsening pain and/or mobility, failure to treat and/or disfigurement. The patient expressed explicit understanding and consent to proceed. All materials required for the procedure were available prior to procedure start. Site and side was marked prior to procedure and confirmed in the presence of the patient. PROCEDURE IN DETAIL: The patient was brought to the procedural suite and placed in the prone position. Patient was made comfortable with use of pillows under the head/chest, hips and ankles. Skin overlying the injection site was prepared broadly with ChloraPrep applicator and draped in a sterile manner. Aseptic technique was employed throughout. The endplates of the vertebral body at the site of interest were aligned in the AP view. Ipsilateral oblique angulation was utilized to better visualize the neuroforamen of interest. Local anesthesia was established by infiltration with approximately 5 mL of 0.5% PF lidocaine via a 1-1/2 inch 27-gauge needle. A 22-gauge 5.0 inch Geeta (pencil point) spinal needle was advanced until the needle approached the 6 o'clock position on the pedicle just superior to the exiting nerve root. on the left at L4-5. Lateral view was utilized to confirm appropriate position of the needle tip within the superior and posterior portion of the respective foramen. In an AP view, 1 mL of Omnipaque 300 contrast medium was injected after negative aspiration for CSF, blood or other bodily fluid, showing appropriate neurogram without evidence of intravascular or intrathecal spread of contrast. Digital subtraction imaging was used with an additional 1ml of the same contrast medium to confirm absence of intravascular contrast spread. A 1mL solution containing 3 mg of betamethasone was injected after negative repeat aspiration. Appropriate spread of the injectate was confirmed with washout of previously injected contrast. No parasthesias were elicited. Needle was removed completely intact without difficulty. The same exact procedure was repeated for all remaining levels on the ipsilateral side, left L5-S1 neuroforamen, modified as necessary to accommodate for the new target location with identical findings and results and no evidence of complication. Images were saved and documented in the patient chart. Patient's skin was horacio aned and sterile bandage applied. The patient tolerated the procedure well. The patient was transported to the recovery area in stable condition where they were observed for an appropriate amount of time prior to discharge, without evidence of complication. The patient was instructed to avoid excessive activity for the next 48 hours, including climbing and frequent use of stairs. Showers only for 48 hours. They were instructed not to drive or operate heavy machinery for 24 hours. They are to monitor for severe headaches, fevers, chills, night sweats, erythema/swelling at the site or any other signs of infection, bleeding/bruising, bowel or bladder changes as well as new pain, weakness or numbness in the upper or lower extremity. Should they notice these changes, they are instructed to call our office immediately or report directly to the nearest Emergency Department if no answer or if after posted office hours. COMPLICATIONS: None COMMENTS: None CONTRAST WASTED: 26 mL Omnipaque 300. STEROID WASTED: 0 mg of betamethasone. Complications No immediate complications Condition Stable Disposition Same day [facility] Billing Surgery - Charge Forward: Surgery Billing
[2024-05-29 07:46] VITALS: BP 106/67; PULSE 77; RESP 14; TEMP 37; O2SAT 98
[2024-05-29 08:43] VITALS: BP 95/52; PULSE 65; RESP 12; O2SAT 99
[2024-05-29 08:48] VITALS: PULSE 67; RESP 18; O2SAT 97
[2024-05-29] MEDS: BETAMETHASONE SODIUM PHOSPHATE PF INJ 6 MG/ML VIAL INFILTRATE (08:48)
[2024-05-29] MEDS: LIDOCAINE 2% PF LOCAL INJ 5 ML VIAL 1 ML INFILTRATE (08:48)
[2024-05-29] MEDS: LIDOCAINE 1% PF INJ 5 ML VIAL 2.5 ML INFILTRATE (08:49)
[2024-05-29 08:52] VITALS: BP 116/75; PULSE 74; RESP 16; O2SAT 100
--- OUTSIDE RECORDS SUMMARY | 2024-05-31 15:34 | XMS_ITS | Referral Summary ---
Author Organization [facility] al Address [address] [place] [address] Care Team Providers Care Enterprise Integration Developer Name Role Phone Etienne Tracey HYUN Primary Care Provider [phone] Allergies No known active allergies Medications lidocaine (LIDODERM) 5 % Apply 1 patch topically daily Remove after 12 hours (need 12 hour patch free period). 14 patch 4 Active cyclobenzaprine (FLEXERIL) 10 mg tablet Take 1 tablet (10 mg total) by mouth 2 (two) times a day as needed for muscle spasms 10 tablet 4 Active Social History Tobacco Use Types Packs/Day Years Used Date Smoking Tobacco: Never Assessed Personal Safety Answer Date Recorded Have you ever been in or are you currently in a harmful physical or emotional relationship or is someone making you feel afraid or unsafe? Denies 09/02/2023 Comments Unknown Sex and Gender Information Value Date Recorded Sex Assigned at Not on file Legal Sex Female 10:30 AM CDT Gender Identity Not on file Sexual Orientation Not on file Last Filed Vital Signs Vital Sign Reading Time Taken Comments Blood Pressure 117/63 09/02/2023 6:12 PM CDT Pulse 70 09/02/2023 6:12 PM CDT Temperature 36.8 ??C (98.3 ??F) 09/02/2023 10:37 AM C DT Respiratory Rate 16 09/02/2023 6:12 PM CDT Oxygen Saturation 97% 09/02/2023 6:12 PM CDT Inhaled Oxygen Concentration - - Weight 59 kg (130 lb) 09/02/2023 10:37 AM CDT Height - - Body Mass Index - - Plan of Treatment Not on file Insurance Care Teams Enterprise Integration Developer Relationship Specialty Start Date End Date Tracey Clifton NP [address] [place] [id number] PCP - General Nurse Practitioner 09/02/23
--- OUTSIDE RECORDS SUMMARY | 2024-05-31 15:34 | XMS_ITS | Referral Summary ---
Author Organization [facility] Address [address] [place] [address] Care Team Providers Care Sail Lay Out Worker Name Role Phone Brielle Medina MD Primary Care Provider Source Comments [facility],non-[facility] Affiliates and Associated Physician Practices is amultiple site organization consisting of ambulatory clinics and hospital sitesin [place], [place], [place] and [place]. This disclosure is being madepursuant to the Care Everywhere program and may not contain all information available regarding this patient. Last updated 18.[facility] [employer] Social History Tobacco Use Types Packs/Day Years Used Date Smoking Tobacco: Never Assessed Sex and Gender Information Value Date Recorded Sex Assigned at Not on file Gender Identity Not on file Sexual Orientation Not on file Plan of Treatment Not on file Care Teams Sail Lay Out Worker Relationship Specialty [place] [address] [place] [address] [phone] PCP - General 01/24/21
--- OUTSIDE RECORDS SUMMARY | 2024-05-31 15:34 | XMS_ITS | Clinical Summary ---
Author Organization [facility] Address [address] [place] [address] Care Team Providers Care Rotary Envelope Machine Operator Name Role Phone Brielle Medina MD Primary Care Provider Source Comments [facility] [employer],non-owned Affiliates and Associated Physician Practices is amultiple site organization consisting of ambulatory clinics and hospital sitesin [place], [place] and [place]. This disclosure is being madepursuant to the Care Everywhere program and may not contain all information available regarding this patient. Last updated 18.[facility] [employer] Social History Tobacco Use Types Packs/Day Years Used Date Smoking Tobacco: Never Assessed Sex and Gender Information Value Date Recorded Sex Assigned at Not on file Gender Identity Not on file Sexual Orientation Not on file Plan of Treatment Health Maintenance Due Date Last Done Comments PAP SMEAR 1990 HIV SCREENING 2005 HEPATITIS C SCREENING 11/07/2008 DTAP/TDAP/TD VACCINES (1 - Tdap) 2009 HEPATITIS B VACCINE (1 of 3 - 19+ 3-dose series) 2009 COVID-19 VACCINE ( - 2023-2 5 season) 2024 INFLUENZA VACCINE (#1) 2024 DEPRESSION SCREENING 05/09/2024 ZOSTER VACCINE (1 of 2) 2040 HIB VACCINE Aged Out No longer eligi ble based on patient's age to complete this topic HPV VACCINE Aged Out No longer eligi ble based on patient's age to complete this topic MENINGOCOCCAL (Group B) VACCINE Aged Out No longer eligible based on patient's age to complete this topic MENINGOCOCCAL VACCINE Aged Out No arabella jody eligible based on patient's age to complete this topic PNEUMOCOCCAL VACCINE Aged Out No long er eligible based on patient's age to complete this topic Care Teams Rotary Envelope Machine Operator Relationship Specialty [place] [address] [place] [address] [phone] PCP - General 01/24/21
--- OUTSIDE RECORDS SUMMARY | 2024-05-31 15:34 | XMS_ITS | Data Portability ---
Author Organization [facility] Address [address] [place] [address] Care Team Providers Care Icu Nurse Name Role Phone GLADYS LEE Primary Care Provider Assessment Encounter Date Assessment Date Assessment LastModified by Organization Details LastModified Time 05/23/2024 05/23/2024 Annual gynecological exam performed. Patient will come back in a year unless there are new symptoms. Not available 05/23/2024 11:14:03 Plan of Treatment Reminders Order Date Submit Date Provider Last Modified By Organization Details Last Modified Time Details Appointments None recorded. Lab None recorded. Referral None recorded. Procedures None recorded. Surgeries None recorded. Imaging None recorded. Medication Orders Depo-Inter[employer]ter [employer] a 150 mg/mL intramuscul ar suspension 2023 024 [email or web address] 1 Not available 11:27:52 Depo-[employer] a 150 mg/mL intramuscul ar suspension 2023 024 [email or web address] 1 Not available 4 11:27:52 Depo-[employer] a 150 mg/mL intramuscul ar syringe 2023 024 [email or web address] 1 Not available 11:28:20 Depo-[employer] a 150 mg/mL intramuscul ar suspension 2023 024 [email or web address] 1 Not available 4 11:35:43 Xulane 150 mcg-35 mcg/24 hr transdermal patch [address] [facility] #[id number], [address], [place], [address], 5 11:38:29 Patient TargetsNo targets recorded. Patient InstructionsNo instructions recorded. Reason for Referral None Reported. Procedures Surgical History Date Name Laterality Status Provider Name and Address Organization Details Recorded Time 0 Date of Last Pap Smear completed [facility] 07/07/2021 10:58:07 6 Dilation and Curettage completed [facility] 07/07/2021 14:19:39 0 Dilation and Curettage completed [facility] 07/07/2021 14:19:28 Imaging Results None recorded. Procedure Notes None recorded. Medical Equipment None Reported. Allergies No known drug allergies Medications Name Sig Start Date Stop Date Status Note LastModified by Organization Details LastModified Time multivita min tablet TAKE 1 TABLET BY MOUTH EVERY DAY 07/07 completed Not Available Not Available Not Available cyclobenz aprine 10 mg tablet TAKE 1 TABLET BY MOUTH AT BEDTIME NEEDED FOR MUSCLE SPASM active Not Available Not Available No t Available clonidine HCl 0.1 mg tablet TAKE 1 TABLET BY MOUTH EVERY DAY IN THE MORNING 02/20 completed Not Available Not Available Not Available lamotrigi ne 200 mg tablet TAKE 1 TABLET BY MOUTH TWICE DAILY 07/07 completed Not Available Not Available Not Available ibuprofen 800 mg tablet TAKE 1 TABLET (ORAL) 3 TIMES PER DAY NEEDED active Not Available Not Available No t Available fluconazo le 150 mg tablet TAKE 1 TABLET BY MOUTH NOW 07/07 completed Not Available Not Available Not Available hydrocodo ne 5 mg-acetam inophen 325 mg tablet 08/10 completed Not Available Not Available Not Available terconazo le 0.8 % vaginal cream INSERT 1 APPLICAT ORFUL VAGINALL Y EVERY DAY AT BEDTIME FOR 3 DAYS 07/07 completed Not Available Not Available Not Available penicilli n V potassium 500 mg tablet TAKE 1 TABLET BY MOUTH EVERY 8 HOURS FOR 7 DAYS 07/07 completed Not Available Not Available Not Available metronida zole 500 mg tablet Take 1 tablet every 12 hours by oral route for 7 days. 08/10 completed Not Available Not Available Not Available acetamino phen 300 mg-codein e 30 mg tablet TAKE 1 TABLET BY MOUTH EVERY 12 HOURS FOR 7 DAYS 05/23 completed Not Available Not Available Not Available aspirin 81 mg tablet,de layed release TAKE 1 TABLET BY MOUTH TWICE DAILY 07/07 completed Not Available Not Available Not Available tramadol 50 mg tablet TAKE 1 TABLET BY MOUTH EVERY 6 HOURS NEEDED FOR PAIN 02/20 completed Not Available Not Available Not Available amoxicill in 500 mg tablet TAKE 1 TABLET BY MOUTH EVERY 8 HOURS FOR 10 DAYS 05/23 completed Not Available Not Available Not Available acyclovir 800 mg tablet TAKE 1 TABLET BY MOUTH EVERY DAY 07/07 completed Not Available Not Available Not Available lamotrigi ne 25 mg tablet active Not Available Not Available Not Available cyprohept adine 4 mg tablet TAKE 1 TABLET BY MOUTH EVERYDAY AT BEDTIME active Not Available Not Available No t Available clonidine HCl 0.2 mg tablet TAKE 1 TABLET BY MOUTH EVERYDAY AT BEDTIME active Not Available Not Available No t Available amoxicill in 875 mg tablet TAKE 1 TABLET BY MOUTH TWICE A DAY FOR 10 DAYS 05/23 completed Not Available Not Available Not Available Depo-Prov era 150 mg/mL intramusc ular suspensio n Inject 1 mL every 3 months by intramus cular route as directed for 90 days. 2023 active 02/21/20 24 Patient is here for Depo (supplie d by patient from pharmacy ) injectio n lot [id number] 04/2026 was given into right hip and patient is next due May 08, 2024 through May 22, 2024 Not Available Not Available Not Available fluvoxami ne 100 mg tablet TAKE 1.5 TABLETS BY MOUTH TWICE A DAY DIRECTED FOR 30 DAYS active Not Available Not Available No t Available nystatin 100,000 unit/gram topical cream APPLY TOPICALL Y TO THE AFFECTED AREA TWICE DAILY 07/07 completed Not Available Not Available Not Available lidocaine 5 % topical patch 02/20 completed Not Available Not Available Not Available progester one micronize d 200 mg capsule TAKE 1 CAPSULE BY MOUTH TWICE DAILY 07/07 completed Not Available Not Available Not Available sertralin e 25 mg tablet TAKE 1 TABLET BY MOUTH EVERY MORNING 07/07 completed Not Available Not Available Not Available folic acid 1 mg tablet TAKE 2 TABLETS BY MOUTH TWICE DAILY DIRECTED 07/07 completed Not Available Not Available Not Available hydroxyzi ne HCl 25 mg tablet 05/23 completed Not Available Not Available Not Available ergocalci ferol (vitamin D2) 1,250 mcg (50,000 unit) capsule 05/23 completed Not Available Not Available Not Available ondansetr on 4 mg disintegr ating tablet DISSOLVE 1 TABLET ON THE TONGUE EVERY 8 HOURS NEEDED 07/07 completed Not Available Not Available Not Available lamotrigi ne 100 mg tablet TAKE 1 TABLET BY MOUTH TWICE A DAY DIRECTED FOR 90 DAYS active Not Available Not Available No t Available naproxen 500 mg tablet TAKE 1 TABLET BY MOUTH TWICE DAILY NEEDED FOR PAIN 02/20 completed Not Available Not Available Not Available metoclopr amide 10 mg tablet TAKE 1 TABLET BY MOUTH FOUR TIMES DAILY DIRECTED 07/07 completed Not Available Not Available Not Available amoxicill in 875 mg-potass ium clavulana te 125 mg tablet 10/12 completed Not Available Not Available Not Available medroxypr ogesteron e 150 mg/mL intramusc ular syringe active Not Available Not Available Not Available escitalop lien 10 mg tablet TAKE 1 TABLET BY MOUTH EVERY DAY IN THE MORNING 07/07 completed Not Available Not Available Not Available Lupron Depot 11.25 mg (3 month) intramusc ular syringe kit active Not Available Not Available Not Available chlorhexi dine gluconate 0.12 % mouthwash SWISH AND SPIT (RINSE) 15 ML BY MOUTH EVERY 12 HOURS X 30 SEC active Not Available Not Available No t Available Oysco 500/D 500 mg-5 mcg (200 unit) tablet TAKE 1 TABLET BY MOUTH TWICE DAILY 07/07 completed Not Available Not Available Not Available ferrous gluconate 324 mg (38 mg iron) tablet TAKE 1 TABLET BY MOUTH TWICE DAILY 07/07 completed Not Available Not Available Not Available lamotrigi ne ER 100 mg tablet,ex tended release 24 hr active Not Available Not Available Not Available Xulane 150 mcg-35 mcg/24 hr transderm al patch Apply 1 transder mal patch weekly for 3 weeks, followed by 1 patch free week 2024 active Not Available Not Available Not Avai lable Vitals Date Recorded Body height Body mass index (BMI) Body weight Systolic blood pressure Diastolic blood pressure Provider Name and Address Organization Details Last Updated DateTime 02/21/2024 175.26 cm 20.5 kg/m2 54669.34 g 106 mm[Hg] 68 mm[Hg] Cyn Reich [facility] 4 11:26:30 Date Recorded Body height Body mass index (BMI) Body weight Systolic blood pressure Diastolic blood pressure Provider Name and Address Organization Details Last Updated DateTime 05/23/2024 175.26 cm 20.7 kg/m2 79015.93 g 125 mm[Hg] 78 mm[Hg] ISXTO Gomez [facility] 5 11:19:00 Social History Question Answer Notes LastModified by Organizat ion Details LastModified Time Tobacco Smoking Status Current Every Day Sm[email or web address]/21/2023 11:17:26 Do You Have An Advance Directive? No Information not available 07/07/2021 What Is Your Level Of Alcohol Consumption? Occasional [email or web address] Information not available 07/07/2021 How Many Years Have You Consumed Alcohol? 9 [email or web address] Information not available 07/07/2021 Are You Blind Or Do You Have Difficulty Seeing? No [email or web address] Information not available 07/07/2021 What Is Your Level Of Caffeine Consumption? Moderate Information not available 07/07/2021 How Much Tobacco Do You Chew? None Information not available 07/07/2021 In The 14 Days Before Symptom Onset, Have You Had Close Contact With A Laboratory-confir med COVID-19 While That Case Was Ill? No [email or web address] Information not available 07/07/2021 In The 14 Days Before Symptom Onset, Have You Had Close Contact With A Person Who Is Under Investigation For COVID-19 While That Person Was Ill? No [email or web address] Information not available 07/07/2021 Have You Been To An Area Known To Be High Risk For COVID-19? No [email or web address] Information not available 07/07/2021 Are You Currently Employed? Yes [email or web address] Information not available 05/23/2024 Are You Deaf Or Do You Have Serious Difficulty Hearing? No Information not available 07/07/2021 What Type Of Diet Are You Following? REGULAR Information not available 07/07/2021 What Is The Highest Grade Or Level Of School You Have Completed Or The Highest Degree You Have Received? [id number] [email or web address] Information not available 07/07/2021 What Is Your Occupation? [employer] Information not available 08/10/2021 Are There Any Guns Present In Your Home? No Information not available 07/07/2021 What Is Your Current Pack Years? 10-19packyears [email or web address] Information not available 03/21/2023 Have You Ever Been Counseled For Unhealthy Alcohol Use? No [email or web address] Information not available 05/23/2024 Do You Use Protection During Sex? Usually Information not available 07/07/2021 Do You Use Your Seat Belt Or Car Seat Routinely? Yes Information not available 07/07/2021 Are You Sexually Active? Yes Information not available 05/23/2024 Do You Have Smoke And Carbon Monoxide Detectors In Your Home? Yes [email or web address] Information not available 07/07/2021 At What Age Did You Start Smoking Tobacco? 13 Information not available 07/07/2021 How Much Tobacco Do You Smoke? 0.25 PPD Information not available 02/21/2024 Do You Feel Stressed (tense, Restless, Nervous, Or Anxious, Or Unable To Sleep At Night)? [id number] Information not available 08/10/2021 Do You Use Any Illicit Or Recreational Drugs? No [email or web address] Information not available 07/07/2021 Do You Use Sunscreen Routinely? Yes Information not available 07/07/2021 How Many Years Have You Smoked Tobacco? 17 [email or web address] Information not available 07/07/2021 Have You Used IV Drugs? No [email or web address] Information not available 07/07/2021 Sex: Unknown Functional Status Question Answer Note LastModified by Organizat ion Details LastModified Time Do you have difficulty walking or climbing stairs? No [email or web address] Information not available 05/23/2024 Are you able to walk? YESWOREST [email or web address] Information not available 07/07/2021 Are you able to care for yourself? Yes [email or web address] Information not available 05/23/2024 Do you have difficulty dressing or bathing? No [email or web address] Information not available 05/23/2024 What is your exercise level? Heavy Information not available 08/10/2021 Mental Status None recorded. Family History Relationship Description Onset Age of this Age Resolved Age Notes LastModified by Organization Details LastModified Time Maternal Grandmother Depressive disorder [email or web address] Not available 2021 14:15:00 Maternal Grandmother Mental disorder [email or web address] Not available 2021 14:15:00 Mother Anxiety disorder [email or web address] Not available 2021 14:15:00 Mother Depressive disorder [email or web address] Not available 2021 14:15:00 Mother Mental disorder [email or web address] Not available 2021 14:15:00 Brother Mental disorder Not available 2021 14:15:00 Brother Anxiety disorder [email or web address] Not available 2021 14:15:00 Brother Depressive disorder [email or web address] Not available 2021 14:15:00 Sister Depressive disorder [email or web address] Not available 2021 14:15:00 Sister Asthma [email or web address] Not available 0 07/07/2021 14:15:00 Sister Mental disorder [email or web address] Not available 2021 14:15:00 Sister Malignant tumor of cervix [email or web address] Not available 2021 14:24:42 Maternal Aunt Depressive disorder [email or web address] Not available 2021 14:15:00 Maternal Aunt Mental disorder [email or web address] Not available 2021 14:15:00 Father Anxiety disorder [email or web address] Not available 2021 14:15:00 Father Depressive disorder [email or web address] Not available 2021 14:15:00 Father Mental disorder [email or web address] Not available 2021 14:15:00 Paternal Aunt Mental disorder [email or web address] Not available 03/01/ 2022 14:15:00 Maternal Grandfather Mental disorder Not available 2021 14:15:00 Paternal Uncle Mental disorder [email or web address] Not available 2021 14:15:00 Medical History Condition Response Allergies (Food, seasonal, environmental ) N Other Y Drug/Latex Allergies/Reactions N Blood Transfusion N Breast Cancer N Dermatologic Disorders N Lung Disease N Defects or Inherited Disease N Breast Problem N Gestational Diabetes N Hematologic disorders N Anesthesia Complications N History of STI N Deep Vein Thrombosis N Polycystic ovary syndrome N Anxiety Disorder Y Autoimmune disease N Arthritis N Polyps N Infertility N Acid Reflux (GERD) N History of abnormal pap N Cancer N Varicosities N Stroke N Neurologic/Epilepsy Y Endometriosis N High Cholesterol N Fibromyalgia N Headaches Y Kidney Disease N Heart Problems N Thyroid Problems N Kidney or Bladder Problems N GI Problems N Eating Disorder N Anemia N Art (IVF or FET) N Psychiatric Illness Y Ovarian Cancer N Diabetes N Pulmonary (TB, Asthma) N Hepatitis/Liver Disease N No Past Medical History N Eczema N Urinary Tract Infection N Abuse/Domestic Violence N Asthma Y Trauma/Violence Y Depression/ depression Y Heart Disease N Pre-Eclampsia N Hypertension N Osteoporosis N Thrombophilias N Gynecological History Statement/Question Response Flow Heavy Date of LMP 07/07/2021 N Was last menstrual period normal N STIs/STDs N Date of control 07/07/2021 Date of Last Colonoscopy Desired Control Method Hormonal In jection Abnormal Pap N On BCP's at Conception? 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 Y Menses Monthly Y Date of DEXA bone scan Age of first menstrual cycle 11 Date of Last Pap Smear 02/16/2020 Sexual Problems? N LMP Definite N Obstetrics History GPAL:G 5 P 3 0 2 3 Type Value Full Term 3 Spontaneous 2 Living 3 Total 5 Past Encounters Encounter ID Performer Location Encounter Start Date Encounter Closed Date Diagnosis/Indication Diagnosis SNOMED-CT Code Diagnosis ICD10 Code Diagnosis Note [id number] Katelynn Niki [facility] [address] [address] 07/07/2021 14:06:12 07/09/2021 13:02:31 Vaginitis 94729322 N76.0 Discussed use of mild soap like dove or ivory, cotton underwear w/out dye, hypoallerg enic detergent, wipe from front to back, avoid tub baths, keep perineum clean and dry, d/c use of baby wipes. Encouraged daily intake of yogurt or womens health probiotic. Internal and external affirm collected .Declines STD screen. Contracept ion care management 505249434 Z30.9 UPT negative. Discussed all control options in great detail. Pt would like to restart xulane patch. She is aware of the risks and benefits. She does not have any medical condition that is contraindi cated with the use of estrogen containing control. Pt will place the patch on the first Tuesday following the start of her period and then replace weekly x 2 (total of 3 patches over 3 weeks) and week 4 no patch. She is aware it is not effective for control the first month and may be less effective d/t her weight. She is also aware that she will need to check placement daily to ensure it has not come off. Encouraged use of condoms as the nuvaring does not protect against STD's. Will return in 3 months for med check. Consent was read and signed. Pt verbalized understand ing. Bipolar disorder [id number] F31.9 Pt is due for refills and does not currently have a pcp. I will refill one time. She will find a new pcp. Missed period [id number] N 92.5 . [id number] Mick Xie MD [facility] [address] [address] 08/10/2021 14:50:17 08/10/2021 15:54:08 Cyst of Bartholin's gland duct 54067571 N75.0 This patient is a 30-year-ol d female who presents for ER follow-up. She had a Bartholin' s cyst or abscess drained in the ER. She is here to have it examined and possibly drained again. She feels reaccumula tion of some fluid. She was examined. It is about cm and half in diameter. It is non erythemato us, not indurated, flocculent left Bartholin' s gland cyst. We discussed treatment options. Talked about draining it and placing sutures to keep it open. Talked about excision. We agreed to observe and she is going to continue to treat with antibiotic s. She will return if it worsens. No evidence of infection at this time. Spent over 15 minutes with the patient exam. [id number] Mick Xie MD [facility] [address],[place] [address] 09/25/2021 09:44:52 09/25/2021 10:32:36 Abnormal uterine bleeding [id number] 9100 N93.9 [id number] Tisha Muñoz [place] [address],[place] [address] 10/01/2021 10:46:53 10/01/2021 12:02:54 Abnormal uterine bleeding [id number] 9100 N93.9 [id number] Mick Xie MD [facility] [address],[place] [address] 10/08/2021 14:19:24 10/12/2021 14:41:47 Contraception care management 428858972 Z30.9 Abnormal u terine bleeding [id number] 9100 N93.9 this patient is a 30-year-ol d female with abnormal uterine bleeding. Her Bleeding episodes are irregularl y irregular. the laboratory and ultrasound evaluation were performed and all is normal. We discussed for over 30 minutes abnormal uterine bleeding, ultrasound results, laboratory evaluation , treatment of abnormal uterine bleeding, PCOS, she is not fit the diagnosis of PCOS, we talked about the risks benefits of each mode of bleeding control. We agreed to treat with Depo-Prove ra. She was prescribed Depo-Prove ra. [id number] Cyn Reich [facility] [address],[place] [address] 10/12/2021 15:16:16 10/13/2021 15:14:56 Contraception care management 775303735 Z30.9 Contraception care 73050 5005 Z30.40 [id number] Adeline Trevino [place] [address],[place] [address] 03/02/2022 10:28:09 03/02/2022 15:09:58 Contraception care management 491572180 Z30.9 [id number] [facility] [address],[place] [address] 05/27/2022 17:03:56 05/27/2022 17:28:47 Contraception care management 287451755 Z30.9 [id number] Mick Xie MD [place] [address] [address] 10/01/2022 11:58:24 10/05/2022 15:18:38 Contraception care management 271666087 Z30.9 [id number] Rhonda Mccain [facility] [address] [address] 12/23/2022 11:19:26 12/23/2022 11:44:18 Gynecologic examination 32917310 Z01.419 Take Calcium with Vitamin D 1200mg daily if not receiving in daily diet. It is strongly advised to have an annual flu shot and up can obtain at most pharmacies . If you have not had a TDap shot in the last 10 years you should obtain one as well. Discussed with patient & provided with informatio n regarding Gardisil vaccine to prevent the 4 strains for HPV that cause cervical cancer if under age 26. Encourage safe sexual practices, to use condoms and limit partners if not already in a monogamous relationsh ip. Do monthly self breast exams. Have mammogram yearly or every other year depending on family history. BRCA testing is now available for patients with strong genetic history of female cancer. If interested contact the office. Engage in daily exercise of low impact aerobic exercise 45-60 minutes 4-5 times weekly. Avoid tobacco and illicit drugs as well as using moderation with alcohol intake less than 1-2 8 oz beverages daily. This lifestyle behavior pattern will lead to less health conditions and longer life span. If BMI greater than 25 weight watchers or dietary consult advised. Patient received above instructio ns, and questions have been answered. If you have any questions please call or respond to this email. Patient was made aware of the patient portal and may obtain a paper copy of today's plan if desired.Pa p/hpv sentSTD Screen sentGeneti c Screen discussedC olon Screen naDexa Screen naRoutine Labs PCP Contracept ion care management [id number] Z30.9 Doing well on this method.No issues.Goi ng on 1yr Depo.If continues through 3yrs will need Dexa scan to check bone health.Rx sent x 1yr [id number] Kya Javed [place] [address] [address] 12/27/2022 17:04:33 12/27/2022 17:21:47 Contraception care management [id number] Z30.9 Doing well on this method.No issues.Goi ng on 1yr Depo.If continues through 3yrs will need Dexa scan to check bone health.Rx sent x 1yr [id number] Adeline Trevino [place] [address],[place] [address] 03/21/2023 11:16:00 03/21/2023 14:25:06 Contraception care management 344689261 Z30.9 Doing well on this method.No issues.Goi ng on 1yr Depo.If continues through 3yrs will need Dexa scan to check bone health.Rx sent x 1yr [id number] Nan Dubois [place] [address],[place] [address] 06/09/2023 14:53:12 06/09/2023 15:14:14 Contraception care management 650038110 Z30.9 Doing well on this method.No issues.Goi ng on 1yr Depo.If continues through 3yrs will need Dexa scan to check bone health.Rx sent x 1yr [id number] Rhonda Mccain [facility] [address],[place] [address] 08/31/2023 10:45:10 09/02/2023 13:47:48 Contraception care management 307699091 Z30.9 Doing well on this method.No issues.Goi ng on 1yr Depo.If continues through 3yrs will need Dexa scan to check bone health.Rx sent x 1yr [id number] Jen Ponce [facility] [address],[place] [address] 11/23/2023 14:58:21 11/23/2023 15:14:54 Contraception care management [id number] Z30.9 [id number] Cyn Reich [place] [address],[place] [address] 02/21/2024 11:06:40 02/21/2024 11:39:42 Contraception care 613257396 Z30.40 [id number] DEBBIE Reynoso [place] [address] [address] 05/23/2024 11:12:17 05/23/2024 12:24:32 Gynecologic examination 81720779 Z01.419 WWEPap - UTD/not indicated todaySTI screen - declinedRo utine labs - PCPRTC in 1 yr or sooner if needed It is strongly advised to have an annual flu shot and up can obtain at most pharmacies . If you have not had a TDap shot in the last 10 years you should obtain one as well. Discussed with patient & provided with informatio n regarding the HPV vaccine if applicable . Encourage safe sexual practices, to use condoms and limit partners if not already in a monogamous relationsh ip. Do monthly self breast exams. BRCA testing is now available for patients with strong genetic history of female cancer. If interested contact the office. Engage in regular exercise. Avoid tobacco and illicit drugs. This lifestyle behavior pattern will lead to less health conditions and longer life span. If BMI greater than 25 dietary consult advised. Questions answered. Contracept ion care management [id number] Z30.9 all BC options discussedw ould like to restart patchrx sent, r/b/a reviewedsm oking cessation encouraged (pt aware will no longer be candidate for this method at age 35 if continues smoking)di scussed possible decreased effectiven ess with current medication regimen - back up method recommende dquestions answered Health Concerns Section Related Observation LastModified by Organization Detai ls LastModified Time None Recorded Concern Status LastModified by Organization Details LastModified Time None Recorded Advance Directives Directive N: Payers Encounter Date Sequence Insurance Name Policy Number Policy Estrella Covered Member ID Estrella Member ID Guarantor Name 06/09/2023 1 [facility] ON OR AFTER 11/06/20 (MEDICAID REPLACEMENT - HMO) Karen Henderson [id number] Karen Henderson 08/31/2023 1 [facility] DOS ON OR AFTER 20 (MEDICAID REPLACEMENT - HMO) Karen Henderson [id number] Karen Henderson 11/23/2023 1 [facility] ON OR AFTER 11/06/20 (MEDICAID REPLACEMENT - HMO) Karen Henderson [id number] Karen Henderson 02/21/2024 1 [facility] ON OR AFTER 11/06/20 (MEDICAID REPLACEMENT - HMO) Karen Henderson [id number] Karen Henderson 05/23/2024 1 [facility] ON OR AFTER 11/06/20 (MEDICAID REPLACEMENT - HMO) Karen Henderson [id number] Karen Henderson Notes Date Note Type Note Provider Name and Address Organization Details Recorded Time 05/23/2024 text/html Annual GYNReport ed bypatient.Menstrual cycle:Normal menses Urinary symptoms:No hematuria; No incontinence Vulva:No genital lesion Vagina:Normal vaginal discharge Breast:No breast pain; No breast lump; No nipple discharge Current Contraception:Intra muscular contraceptive injection Sexual complaints:No sexual complaints; No pain during intercourse; Normal libido Menopausal Symptoms:No menopausal symptoms; Normal vaginal lubrication Psychological symptoms:No depression; No anxiety; No PMDD Preventive measures:Encourage self breast examination; Encourage regular exercise; Encourage no tobacco use; Encourage regular mammograms starting age 40Notes:33yo wweBC - depo, would like to switch methods. Previously on the patch and would like to restart thisno h/o abnormal papslast pap : nilm, HPV (-) denies h/o DVT/PE, HTN, Stroke/MA, cancer, liver disease, or migraine with aurashe is a tobacco smoker DEBBIE Reynoso [address], [place], [address], [facility] 05/23/2024 11:44:21 OBGyn Episode Ob Episode Information Episode Created Date Number of Fetuses Patient Bloodtype Patient rh Status Prepregnancy Weight lbs Domestic Partner Domestic Partner Phone Father Name Prosthetic Aide Status 07/08/19 22 1 CLOSED Fetus Data First Name Last Name Admitted to NICU Weight (g) Sex Living Outcome Pediatric Complications Fetus ID Race Codes Race Delivery Type 3175.14 4 Full Term [id number] Vaginal Delivery Porfirio Calculation Initial Porfirio Date Initial Exam Date Initial Exam Provider Initial Ultrasound Date Last Menstrual Period Date Ultra Sound Weeks Gestation 0 Eighteen To Twenty Week Porfirio Update Ultra Sound Date Fundal Height At Umbil Quickening Date Ultra Sound Latest Weeks Gestation Final Porfirio Confirmed By Final Porfirio Confirmed Date Final Porfirio Date Ultra Sound Latest Days Gestation 0 0 Menstrual History Last Menstrual Date Menses Monthly On Bcp Conception Prior Menses Frequency Hcg Plus Date Menarche Onset Age Delivery Information Delivery Date Delivery Type Labor Anesthesia Weeks Gestation Incision Type Labor Labor Length Hrs Delivered By Post Complications Tubal Sterilization Discharge Date Comments 3 39 Discharge Information Feeding Method Contraceptive Method Maternal HG B and HCT Levels Ob Episode Information Episode Created Date Number of Fetuses Patient Bloodtype Patient rh Status Prepregnancy Weight lbs Domestic Partner Domestic Partner Phone Father Name Prosthetic Aide Status 07/08/19 22 1 CLOSED Fetus Data First Name Last Name Admitted to NICU Weight (g) Sex Living Outcome Pediatric Complications Fetus ID Race Codes Race Delivery Type 3826.95 [phone] Full Term [id number] Vaginal Delivery Porfirio Calculation Initial Porfirio Date Initial Exam Date Initial Exam Provider Initial Ultrasound Date Last Menstrual Period Date Ultra Sound Weeks Gestation 0 Eighteen To Twenty Week Porfirio Update Ultra Sound Date Fundal Height At Umbil Quickening Date Ultra Sound Latest Weeks Gestation Final Porfirio Confirmed By Final Porfirio Confirmed Date Final Porfirio Date Ultra Sound Latest Days Gestation 0 0 Menstrual History Last Menstrual Date Menses Monthly On Bcp Conception Prior Menses Frequency Hcg Plus Date Menarche Onset Age Delivery Information Delivery Date Delivery Type Labor Anesthesia Weeks Gestation Incision Type Labor Labor Length Hrs Delivered By Post Complications Tubal Sterilization Discharge Date Comments 5 38 Discharge Information Feeding Method Contraceptive Method Maternal HG B and HCT Levels Ob Episode Information Episode Created Date Number of Fetuses Patient Bloodtype Patient rh Status Prepregnancy Weight lbs Domestic Partner Domestic Partner Phone Father Name Prosthetic Aide Status 07/08/19 22 1 CLOSED Fetus Data First Name Last Name Admitted to NICU Weight (g) Sex Living Outcome Pediatric Complications Fetus ID Race Codes Race Delivery Type , Spontane ous [id number] Porfirio Calculation Initial Porfirio Date Initial Exam Date Initial Exam Provider Initial Ultrasound Date Last Menstrual Period Date Ultra Sound Weeks Gestation 0 Eighteen To Twenty Week Porfirio Update Ultra Sound Date Fundal Height At Umbil Quickening Date Ultra Sound Latest Weeks Gestation Final Porfirio Confirmed By Final Porfirio Confirmed Date Final Porfirio Date Ultra Sound Latest Days Gestation 0 0 Menstrual History Last Menstrual Date Menses Monthly On Bcp Conception Prior Menses Frequency Hcg Plus Date Menarche Onset Age Delivery Information Delivery Date Delivery Type Labor Anesthesia Weeks Gestation Incision Type Labor Labor Length Hrs Delivered By Post Complications Tubal Sterilization Discharge Date Comments 6 Discharge Information Feeding Method Contraceptive Method Maternal HG B and HCT Levels Ob Episode Information Episode Created Date Number of Fetuses Patient Bloodtype Patient rh Status Prepregnancy Weight lbs Domestic Partner Domestic Partner Phone Father Name Prosthetic Aide Status 07/08/19 22 1 CLOSED Fetus Data First Name Last Name Admitted to NICU Weight (g) Sex Living Outcome Pediatric Complications Fetus ID Race Codes Race Delivery Type , Spontane ous [id number] Porfirio Calculation Initial Porfirio Date Initial Exam Date Initial Exam Provider Initial Ultrasound Date Last Menstrual Period Date Ultra Sound Weeks Gestation 0 Eighteen To Twenty Week Porfirio Update Ultra Sound Date Fundal Height At Umbil Quickening Date Ultra Sound Latest Weeks Gestation Final Porfirio Confirmed By Final Porfirio Confirmed Date Final Porfirio Date Ultra Sound Latest Days Gestation 0 0 Menstrual History Last Menstrual Date Menses Monthly On Bcp Conception Prior Menses Frequency Hcg Plus Date Menarche Onset Age Delivery Information Delivery Date Delivery Type Labor Anesthesia Weeks Gestation Incision Type Labor Labor Length Hrs Delivered By Post Complications Tubal Sterilization Discharge Date Comments 0 Discharge Information Feeding Method Contraceptive Method Maternal HG B and HCT Levels Ob Episode Information Episode Created Date Number of Fetuses Patient Bloodtype Patient rh Status Prepregnancy Weight lbs Domestic Partner Domestic Partner Phone Father Name Prosthetic Aide Status 07/08/19 22 1 CLOSED Fetus Data First Name Last Name Admitted to NICU Weight (g) Sex Living Outcome Pediatric Complications Fetus ID Race Codes Race Delivery Type [phone] Full Term [id number] Vaginal Delivery Porfirio Calculation Initial Porfirio Date Initial Exam Date Initial Exam Provider Initial Ultrasound Date Last Menstrual Period Date Ultra Sound Weeks Gestation 0 Eighteen To Twenty Week Porfirio Update Ultra Sound Date Fundal Height At Umbil Quickening Date Ultra Sound Latest Weeks Gestation Final Porfirio Confirmed By Final Porfirio Confirmed Date Final Porfirio Date Ultra Sound Latest Days Gestation 0 0 Menstrual History Last Menstrual Date Menses Monthly On Bcp Conception Prior Menses Frequency Hcg Plus Date Menarche Onset Age Delivery Information Delivery Date Delivery Type Labor Anesthesia Weeks Gestation Incision Type Labor Labor Length Hrs Delivered By Post Complications Tubal Sterilization Discharge Date Comments 1 38 Discharge Information Feeding Method Contraceptive Method Maternal HG B and HCT Levels
--- OUTSIDE RECORDS SUMMARY | 2024-05-31 15:34 | XMS_ITS | Clinical Summary ---
Author Organization [facility] al Address [address] [place] [address] Care Team Providers Care Cartridge Loading Operator Name Role Phone Matildeenrike Tracey HYUN Primary Care Provider [phone] Allergies No known active allergies Medications lidocaine [...] Mass Index - - Plan of Treatment Health Maintenance Due Date Last Done Comments Cervical Cancer Screening 1990 Depression Screening 1990 Hepatitis C Screening 1990 Varicella Vaccines (1 of 2 - 13+ 2-dose series) 11/13/2003 HPV Vaccines (3 - 3-dose series) 05/13/2007 01/10/2007, 11/10/2006 Regular Well Visit/Exam 18-64 2008 Influenza Vaccine (#1) 2024 , 03/22/2018, 04/22/2016, Additional history exists DTaP/Tdap/Td Vaccine (8 - Td or Tdap) 11/05/2030 11/05/2020, 09/29/2012, 11/17/2006, Additional history exists Pneumococcal vaccine <65 Aged Out No longer eligible based on patient's age to complete this topic Insurance [address] JEAN ROLDAN [address] [place] [address] Care Teams Cartridge Loading Operator Relationship Specialty Start Date End Date Tracey Clifton NP [address] [place] [address] PCP - General Nurse Practitioner 09/02/23
--- OUTSIDE RECORDS SUMMARY | 2024-05-31 15:34 | XMS_ITS | Patient Health Summary ---
Author Organization [facility] Address [address] [place] [address] Care Team Providers Care Sample Case Porter Name Role Phone Brielle Medina MD Primary Care Provider Note from [facility],non-owned Affiliates and Associated Physician Practices is amultiple site organization consisting of ambulatory clinics and hospital sitesin [place], [place], [place] and [place]. This disclosure is being madepursuant to the Care Everywhere program and may not contain all information available regarding this patient. Last updated 18.[facility] Social History Tobacco Use Types Packs/Day Years Used Date Smoking Tobacco: Never Assessed Sex and Gender Information Value Date Recorded Sex Assigned at Not on file Gender Identity Not on file Sexual Orientation Not on file Care Teams Sample Case Porter Relationship Specialty Start Date End Date Brielle Medina MD [address] [place], [place] [id number] PCP - General 01/24/21
== END 2024-05-29 09:21 ==
LOC: ASC 07:27
PROVIDERS: PCP Nurse Practitioner Adult Health; Visit Provider Anesthesiology Pain Medicine
PROC: (CPT 64483; principal; 2024-05-29 08:30)
DX: M51.16 Intervertebral disc disorders with radiculopathy, lumbar region (principal)
CPT/HCPCS: 64483; 64484; 99199

== ENCOUNTER 2024-10-03 00:52 | Day surgery (SDC) | payer OTHER, SELFPAY ==
[2024-09-24 09:20] VITALS: BMI 20.5
--- NOTE | 2024-09-24 09:28 | PC.NURSE ---
Report to the Outpatient Waiting Room, entrance under the green pavilion located off [facility], at time _08:00am on date __10/03/24 . Planned Procedure Time: __10:00am .? Time changes happen often and if your time is changed the preop area will call you the afternoon before. - You and your visitor will be asked to self-screen and do not enter if you have any COVID symptoms. Please call surgeon if you need to reschedule. - A mask is optional within the hospital at this time. Patients may have clear liquids (water, carbonated beverages, clear teas, apple juice) until 3 hours prior to surgery with a maximum of 20 ounces. - No food from midnight until time of surgery and no smoking, or chewing tobacco (or any form of nicotine). No chewing gum, candy or mints. (0700am) Take only the following medications with a SIP of water on the morning of surgery: ___None DO NOT STOP ANY OF YOUR OTHER PRESCRIPTION MEDICATIONS PRIOR TO SURGERY EXCEPT THE FOLLOWING Hold all vitamins and supplements for 3 days per anesthesiologist.- pt takes none Medications to discontinue per physician None Date to take last dose None Please no make-up, nail armenian, hairspray, perfume, deodorant, or body powder the day of surgery.? No jewelry (including any body piercings) or valuables the day of surgery, leave them at home.? Please take a shower or bath the night before, or the morning of, surgery with an antibacterial soap.? Wear comfortable, loose fitting clothing.? - Jewelry must be removed prior to entering the operating room.? Rings and piercings that are not removed may be cut off. - The hospital will not accept responsibility for valuables.? - Please leave all valuables, including medications, at home the day of surgery. If you are going home after surgery, a licensed commercial driver's license driver must drive you home.? - NO public transportation without another adult if you receive anesthesia. - We recommend that an adult stay with you for 24 hours following discharge. - We also recommend that you do not drive, make important decision, drink alcoholic beverages, or take any drugs that were not prescribed by your health care provider for at least 24 hours after your discharge time. Follow any additional instructions given to you from your surgeon. Telephone instructions given to __Patient and asked if any additional questions and then verbalized understanding. Patient advised to call surgeon office or pre surgery nurse liaison [phone] if any additional questions.
[2024-10-03] VITALS (9 sets, daily range): BP systolic 109–127; BP diastolic 47–80; PULSE 61–94; RESP 14–22; TEMP 36.6–36.7; O2SAT 97–100; BMI 20.8
--- OUTSIDE RECORDS SUMMARY | 2024-10-03 00:55 | XMS_ITS | Clinical Summary ---
Author Organization [facility] al Address [address] [place] [address] Care Team Providers Care Preboarder Name Role Phone Janusz Cliftonie HYUN Primary Care Provider [phone] Allergies No known active allergies Medications lidocaine [...] 70 09/02/2023 6:12 PM CDT Temperature 36.8 C (98.3 F) 09/02/2023 10:37 AM CDT Respiratory Rate 16 09/02/2023 6:12 PM CDT [...] Regular Well Visit/Exam 18-64 2008 Influenza Vaccine (Season Ended) 2025 03/31/2020, 03/22/2018, 04/22/2016, Additional history exists DTaP/Tdap/Td Vaccine (8 - Td or Tdap) 11/05/2030 11/05/2020, 09/29/2012, 11/17/2006, Additional history exists Hepatitis B Screening Completed 02/25/1997 , 09/24/1996, 08/27/1996 Pneumococcal vaccine <65 Aged Out No longer eligible based on patient's age to complete this topic Insurance Care Teams Preboarder Relationship Specialty Start Date End Date Tracey Clifton NP [address] [place] [address] PCP - General Nurse Practitioner 09/02/23
--- OUTSIDE RECORDS SUMMARY | 2024-10-03 00:55 | XMS_ITS | Data Portability ---
Author Organization [facility] Address [address] [place] [address] Care Team Providers Care Cell Operation Supervisor Name Role Phone GLADYS LEE Primary Care Provider Assessment Encounter Date Assessment Date Assessment LastModified by Organization Details LastModified Time 05/23/2024 05/23/2024 Annual gynecological exam performed. Patient will come back in a year unless there are new symptoms. Not available 05/23/2024 11:14:03 Plan of Treatment Reminders Order Date Submit Date Provider Last Modified By Organization Details Last Modified Time Details Appointments SURG Salpingec bert 2024 10:00A Nicholas BAPTISTE MD Not available Not available Not available Lab None recorded. Referral None recorded. Procedures None recorded. Surgeries hysterosc opy, with endometri al ablation (SURG) 2024 025 API-[id number] [facility], [address] [place] [address], [address], 08/28/2024 11:38:09 salpingec bert, laparosco pic (SURG) 2024 025 API830 [facility], [facility] [address], [address], 08/29/2024 10:07:25 Imaging None recorded. Medication Orders Xulane 150 mcg-35 mcg/24 hr transderm al patch 2024 025 [facility]acy #[id number], [address], [place], [address], 05/23/2024 11:38:29 Depo-Prov era 150 mg/mL intramusc ular suspensio n 2023 024 [email or web address] Not available 08/18/2024 11:29:20 Depo-Prov era 150 mg/mL intramusc ular syringe 2023 024 [email or web address] Not available 02/21/2024 11:28:20 Depo-Prov era 150 mg/mL intramusc ular suspensio n 2023 024 [email or web address] Not available 02/21/2024 11:27:52 Patient TargetsNo targets recorded. Patient InstructionsNo instructions recorded. Reason for Referral None Reported. Procedures Surgical History Date Name Laterality Status Provider Name and Address Organization Details Recorded Time 3 Date of Last Pap Smear completed [facility] 08/18/2024 11:36:21 6 Dilation and Curettage completed [facility] 07/07/2021 14:19:39 0 Dilation and Curettage completed [facility] 07/07/2021 14:19:28 Dilation and Curettage completed [facility] 08/18/2024 11:30:07 Imaging Results None recorded. Procedure Notes None [...] patient from pharmacy ) injectio n lot [id number] Exp 04/2026 was given into right hip [...] completed Not Available Not Available Not Available norelgest romin 150 mcg-e.est radiol 35 mcg/24 hr weekly transderm patch APPLY 1 PATCH ONTO THE SKIN ONCE WEEKLY X3 WEEKS, THEN PATCH FREE X1 WEEK active Not Available Not Available No t Available medroxypr ogesteron e 150 mg/mL intramusc [...] completed Not Available Not Available Not Available fluvoxami ne ER 150 mg capsule,e xtended release 24 hr TAKE 2 CAPSULES BY MOUTH EVERY DAY IN THE MORNING FOR 90 DAYS active Not Available Not Available No t Available lamotrigi ne ER 200 mg tablet,ex tended release 24 hr TAKE 1 TABLET BY MOUTH EVERY DAY IN THE MORNING active Not Available Not Available No t Available lamotrigi ne ER 100 mg tablet,ex tended release 24 hr active Not Available Not Available Not Available Vitals Date Recorded Body height Body mass index (BMI) Body weight Systolic And Diastolic Provider Name and Address Organization Details Last Updated DateTime 05/23/2024 175.26 cm 20.7 kg/m2 59440.93 g 125/78 mm[Hg] SIXTO Gomez [facility] 05/23/2024 11:19:00 Date Recorded Body height Body mass index (BMI) Body weight Systolic And Diastolic Provider Name and Address Organization Details Last Updated DateTime 08/18/2024 175.26 cm 20.6 kg/m2 31537.49 g 98/66 mm[Hg] Maria Fernanda Clayton [facility] 08/18/2024 11:36:12 Date Recorded Body height Body mass index (BMI) Body weight Systolic And Diastolic Provider Name and Address Organization Details Last Updated DateTime 02/21/2024 175.26 cm 20.5 kg/m2 52255.34 g 106/68 mm[Hg] Cyn Reich [facility] 02/21/2024 11:26:30 Social History Question Answer Notes LastModified by Organizat ion Details LastModified Time Tobacco Smoking Status Current Every Day Smoker Helen zambrano [facility] 03/21/2023 11:17:26 Do You Have An Advance Directive? No [email or web address] Information n ot available 07/07/2021 How Many Years Have You Consumed Alcohol? 9 [email or web address] Information not available 07/07/2021 Are You Blind Or Do You Have Difficulty Seeing? No [email or web address] Information n ot available 07/07/2021 What Is Your Level Of Caffeine Consumption? Moderate Information not available 07/07/2021 How Much Tobacco Do You Chew? None [email or web address] Information not available 07/07/2021 In The 14 Days Before Symptom Onset, Have You Had Close Contact With A Laboratory-confirm ed COVID-19 While That Case Was Ill? No Information n ot available 07/07/2021 In The 14 Days Before Symptom Onset, Have You Had Close Contact With A Person Who Is Under Investigation For COVID-19 While That Person Was Ill? No [email or web address] Information not available 07/07/2021 Have You Been To An Area Known To Be High Risk For COVID-19? No [email or web address] Information not available 07/07/2021 Are You Deaf Or Do You Have Serious Difficulty Hearing? No [email or web address] Information not available 07/07/2021 What Type Of Diet Are You Following? REGULAR [email or web address] Information n ot available 07/07/2021 What Is The Highest Grade Or Level Of School You Have Completed Or The Highest Degree You Have Received? IC32731-5 [email or web address] Information not available 07/07/2021 Are There Any Guns Present In Your Home? No [email or web address] Information not available 07/07/2021 What Is Your Current Pack Years? 10-19packyear s [email or web address] Information not available 03/21/2023 Have You Ever Been Counseled For Unhealthy Alcohol Use? No [email or web address] Information not available 05/23/2024 Do You Use Protection During Sex? Usually [email or web address] Information not available 07/07/2021 Do You Use Your Seat Belt Or Car Seat Routinely? Yes Information not available 07/07/2021 Are You Sexually Active? Yes [email or web address] Information not available 05/23/2024 Do You Have Smoke And Carbon Monoxide Detectors In Your Home? Yes Information not available 07/07/2021 At What Age Did You Start Smoking Tobacco? 13 Information not available 07/07/2021 How Much Tobacco Do You Smoke? 0.25 PPD [email or web address] Information not available 02/21/2024 Do You Use Sunscreen Routinely? Yes Information not available 07/07/2021 How Many Years Have You Smoked Tobacco? 17 Information not available 07/07/2021 Have You Used IV Drugs? No [email or web address] Information not available 07/07/2021 Do You Have Difficulty Walking Or Climbing Stairs? No [email or web address] Information not available 05/23/2024 Sex: Unknown Functional Status Question Answer Note LastModified by Organizat ion Details LastModified Time Do you use any illicit or recreational drugs? No Information not available 07/07/2021 What is your level of alcohol consumption? Occasional [email or web address] Information not available 07/07/2021 Are you currently employed? Yes Information not available 05/23/2024 Are you able to walk? YESWOREST [email or web address] Information not available 07/07/2021 Are you able to care for yourself? Yes [email or web address] Information not available 05/23/2024 What is your occupation? [employer] Information not available 08/10/2021 Do you have difficulty dressing or bathing? No [email or web address] Information not available 05/23/2024 What is your exercise level? Heavy Information not available 08/10/2021 Mental Status Question Answer Note LastModified by Organization D etails LastModified Time Do you feel stressed (tense, restless, nervous, or anxious, or unable to sleep at night)? [id number] Information not available 08/10/2021 Family History Relationship Description Onset Age of this Age Resolved Age Notes LastModified by Organization Details LastModified Time Maternal Grandmother Depressive disorder [email or web address] Not available 2021 14:15:00 Maternal Grandmother Mental disorder [email or web address] Not available 2021 14:15:00 Mother Anxiety disorder Not available 2021 14:15:00 Mother Depressive disorder Not available 2021 14:15:00 Mother Mental disorder [email or web address] Not available 2021 14:15:00 Brother Mental disorder [email or web address] Not available 2021 14:15:00 Brother Anxiety disorder [email or web address] Not available 2021 14:15:00 Brother Depressive disorder Not available 2021 14:15:00 Sister Depressive disorder Not available 2021 14:15:00 Sister Asthma [email or web address] Not available 0 07/07/2021 14:15:00 Sister Mental disorder [email or web address] Not available 2021 14:15:00 Sister Malignant tumor of cervix [email or web address] Not available 2021 14:24:42 Maternal Aunt Depressive disorder Not available 2021 14:15:00 Maternal Aunt Mental disorder Not available 2021 14:15:00 Father Anxiety disorder Not available 2021 14:15:00 Father Depressive disorder [email or web address] Not available 2021 14:15:00 Father Mental disorder [email or web address] Not available 2021 14:15:00 Paternal Aunt Mental disorder [email or web address] Not available 2021 14:15:00 Maternal Grandfather Mental disorder [email or web address] Not available 2021 14:15:00 Paternal Uncle Mental disorder Not available 2021 14:15:00 Medical History Condition Response Allergies (Food, seasonal, environmental ) N Other Y Drug/Latex Allergies/Reactions N Breast Cancer N Blood Transfusion N Dermatologic Disorders N Lung Disease N [...] Thrombophilias N Gynecological History Statement/Question Response Flow Moderate Date of LMP 07/21/2024 N On BCP's at Conception? N STIs/STDs N Was last menstrual period normal N HPV Vaccine Y Duration of Flow (days) 7 Current Control Method None Age at First Child 21 Are cycles usually normal Y Date of Last Colonoscopy Frequency of Cycle (Q days) 30 Sexually Active? N Menses Monthly Y Date of DEXA bone scan Age of first menstrual cycle 11 Date of Last Pap Smear 01/02/2023 Sexual Problems? N LMP Definite Desired Control Method None N Obstetrics History GPAL:G 5 P 3 0 2 3 Type Value Full Term 3 Spontaneous 2 Living 3 Total 5 Past Encounters Encounter ID Performer Location Encounter Start Date Encounter Closed Date Diagnosis/Indication Diagnosis SNOMED-CT Code Diagnosis ICD10 Code Diagnosis Note [id number] Katelynn Prince, [facility] [address] [address] 07/07/2021 14:06:12 07/09/2021 13:02:31 Vaginitis 24495940 N76.0 Discussed use of mild soap like dove or ivory, cotton underwear w/out dye, hypoallerg enic detergent, wipe from front to back, avoid tub baths, keep perineum clean and dry, d/c use of baby wipes. Encouraged daily intake of yogurt or womens health probiotic. Internal and external affirm collected .[facility] 18[facility] Z30.9 UPT negative. Discussed all control options [...] signed. Pt verbalized understand ing. Bipolar disorder 1742567 4 F31.9 Pt is due for refills and does not currently have a pcp. I will refill one time. She will find a new pcp. Missed period 54951344 N 92.5 . [id number] iMck Baptiste MD [facility] [address],[place] [address] 08/10/2021 14:50:17 08/10/2021 15:54:08 Cyst of Bartholin's gland duct 14651287 N75.0 This patient is a 30-year-ol d [...] over 15 minutes with the patient exam. [id number] Mick Baptiste MD [facility] [address],[place] [address] 09/25/2021 09:44:52 09/25/2021 10:32:36 Abnormal uterine bleeding 9439969851 9100 N93.9 [id number] Mick Baptiste MD [facility] [address],[place] [address] 10/01/2021 10:46:53 10/01/2021 12:02:54 Abnormal uterine bleeding 0107477776 9100 N93.9 [id number] Mick Baptiste MD [facility] [address],[place] [address] 10/08/2021 14:19:24 10/12/2021 14:41:47 Contraception care management 589724928 Z30.9 Abnormal u terine bleeding 6099176727 9100 N93.9 this patient is a 30-year-ol [...] Depo-Prove ra. She was prescribed Depo-Prove ra. [id number] Mick Baptiste MD [facility] [address],[place] [address] 10/12/2021 15:16:16 10/13/2021 15:14:56 Contraception care management 116500928 Z30.9 Contraception care 42492 5005 Z30.40 [id number] Mick Baptiste MD [facility] [address],[place] [address] 03/02/2022 10:28:09 03/02/2022 15:09:58 Contraception care management 028394054 Z30.9 [id number] Mick Baptiste MD [facility] [address] [place] [address] 05/27/2022 17:03:56 05/27/2022 17:28:47 Contraception care management 470060477 Z30.9 [id number] Mick Baptiste MD [facility] [address] [place] [address] 10/01/2022 11:58:24 10/05/2022 15:18:38 Contraception care management 920768627 Z30.9 [id number] [facility] [address] [place] [address] 12/23/2022 11:19:26 12/23/2022 11:44:18 Gynecologic examination 26908697 Z01.419 Take Calcium with Vitamin D 1200mg [...] naRoutine Labs PCP Contracept ion care management 658748387 Z30.9 Doing well on this method.No issues.Goi ng on 1yr Depo.If continues through 3yrs will need Dexa scan to check bone health.Rx sent x 1yr [id number] Rhonda Mccain [facility] [address],[place] [address] 12/27/2022 17:04:33 12/27/2022 17:21:47 Contraception care management 142480828 Z30.9 Doing well on this method.No issues.Goi ng on 1yr Depo.If continues through 3yrs will need Dexa scan to check bone health.Rx sent x 1yr [id number] Rhonda Mccain [facility] [address],[place] [address] 03/21/2023 11:16:00 03/21/2023 14:25:06 Contraception care management 771025088 Z30.9 Doing well on this method.No issues.Goi ng on 1yr Depo.If continues through 3yrs will need Dexa scan to check bone health.Rx sent x 1yr [id number] Rhonda Mccain [facility] [address],[place] [address] 06/09/2023 14:53:12 06/09/2023 15:14:14 Contraception care management 545186855 Z30.9 Doing well on this method.No issues.Goi ng on 1yr Depo.If continues through 3yrs will need Dexa scan to check bone health.Rx sent x 1yr [id number] Rhonda Mccain [facility] [address],[place] [address] 08/31/2023 10:45:10 09/02/2023 13:47:48 Contraception care management 043790207 Z30.9 Doing well on this method.No issues.Goi ng on 1yr Depo.If continues through 3yrs will need Dexa scan to check bone health.Rx sent x 1yr [id number] Mick Baptiste MD [facility] [address],[place] [address] 11/23/2023 14:58:21 11/23/2023 15:14:54 Contraception care management 537774905 Z30.9 [id number] Mick Baptiste MD [facility] [address],[place] [address] 02/21/2024 11:06:40 02/21/2024 11:39:42 Contraception care 698057831 Z30.40 [id number] Sh[facility] [address],[place] [address] 05/23/2024 11:12:17 05/23/2024 12:24:32 Gynecologic examination 10021383 Z01.419 WWEPap - UTD/not indicated todaySTI screen [...] advised. Questions answered. Contracept ion care management 272262649 Z30.9 all BC options discussedw ould like to restart patchrx sent, r/b/a reviewedsm oking cessation encouraged (pt aware will no longer be candidate for this method at age 35 if continues smoking)di scussed possible decreased effectiven ess with current medication regimen - back up method recommende dquestions answered [id number] Mick Baptiste MD [facility] [address] [address] 08/18/2024 11:29:12 08/18/2024 12:31:29 Female sterilization 79183685 Z30.2 Menorrhagia 994418322 N9 2.0 This patient is a 33-year-ol d female presents for heavy vaginal bleeding. She has longstandi ng very heavy bleeding. Her menses are regular. However, they require double protection . Patient has accidents, getting blood on her bedding and clothing. Is affected work. She changes a pad or tampon every hour. She leaks blood around the pad and tampon. This bleeding has a profound impact on her quality of life and her activities of daily living.Pat elen would like nonhormona l treatment. She has not tolerated hormones well. We talked about endometria l ablation. I shared a animated video with Deann higgins the procedure. She understand s the procedure. We also talked about salpingect liane. We agreed to move forward with endometria l ablation and laparoscop ic salpingect liane. The patient understand s the procedure. The procedure was described to the patient in great detail. the patient also understand s the risks. The risks were also explained in detail. She understand s that injuries May occur during surgery. She understand s these injuries can result in hospitaliz ation, more surgery, and severe illness. She understand s there is risk of hemorrhage and infection. I spent more than 30 minutes on her care in total. Health Concerns Section Related Observation LastModified by Organization Detai ls LastModified Time None Recorded Concern Status LastModified by Organization Details LastModified Time None Recorded Advance Directives Directive N: Payers Encounter Date Sequence Insurance Name Policy Number Policy Estrella Covered Member ID Estrella Member ID Guarantor Name 08/31/2023 1 [facility] ON OR AFTER 11/06/20 (MEDICAID REPLACEMENT - HMO) Karen Baetriz [id number] Karen Beatriz 11/23/2023 1 [facility] ON OR AFTER 11/06/20 (MEDICAID REPLACEMENT - HMO) Karen Beatriz [id number] Karen Beatriz 02/21/2024 1 [facility] ON OR AFTER 11/06/20 (MEDICAID REPLACEMENT - HMO) Karen Beatriz [id number] Karen Beatriz 05/23/2024 1 [facility] ON OR AFTER 11/06/20 (MEDICAID REPLACEMENT - HMO) Karen Beatriz [id number] Karen Beatriz 08/18/2024 1 [facility] ON OR AFTER 11/06/20 (MEDICAID REPLACEMENT - HMO) Karen Beatriz [id number] Karen Beatriz Notes Date Note Type Note Provider Name [...] nilm, HPV (-) denies h/o DVT/PE, HTN, Stroke/MO, cancer, liver disease, or migraine with aurashe is a tobacco smoker DEBBIE Reynoso [address], [place], [address], [facility] 05/23/2024 11:44:21 08/18/2024 text/html This patient is a 33-year-old female presents for heavy vaginal bleeding. She has longstanding very heavy bleeding. Her menses are regular. However, they require double protection. Patient has accidents, getting blood on her bedding and clothing. Is affected work. She changes a pad or tampon every hour. She leaks blood around the pad and tampon. This bleeding has a profound impact on her quality of life and her activities of daily living.Patient would like nonhormonal treatment. She has not tolerated hormones well. We talked about endometrial ablation. I shared a animated video with Deann higgins the procedure. She understands the procedure. We also talked about salpingectomy. We agreed to move forward with endometrial ablation and laparoscopic salpingectomy. The patient understands the procedure. The procedure was described to the patient in great detail. the patient also understands the risks. The risks were also explained in detail. She understands that injuries May occur during surgery. She understands these injuries can result in hospitalization, more surgery, and severe illness. She understands there is risk of hemorrhage and infection. I spent more than 30 minutes on her care in total. Mick Baptiste MD [address], [place], [address], [facility] 08/18/2024 12:30:08 OBGyn Episode Ob Episode Information Episode Created Date Number of Fetuses Patient Bloodtype Patient rh Status Prepregnancy Weight lbs Domestic Partner Domestic Partner Phone Father Name Brewer Helper Status 07/08/19 22 1 CLOSED Fetus Data First Name Last Name Admitted to NICU Weight (g) Sex Living Outcome Pediatric Complications Fetus ID Race Codes Race Delivery Type 3175.14 4 Full Term 10907 Vaginal Delivery Porfirio Calculation Initial Porfirio Date [...] Domestic Partner Domestic Partner Phone Father Name Brewer Helper Status 07/08/19 22 1 CLOSED Fetus Data First Name Last Name Admitted to NICU Weight (g) Sex Living Outcome Pediatric Complications Fetus ID Race Codes Race Delivery Type 3826.95 5704 Full Term 29942 Vaginal Delivery Porfirio Calculation Initial Porfirio Date [...] Domestic Partner Domestic Partner Phone Father Name Brewer Helper Status 07/08/19 22 1 CLOSED Fetus Data First Name Last Name Admitted to NICU Weight (g) Sex Living Outcome Pediatric Complications Fetus ID Race Codes Race Delivery Type , Spontane ous 89598 Porfirio Calculation Initial Porfirio Date Initial Exam [...] Domestic Partner Domestic Partner Phone Father Name Brewer Helper Status 07/08/19 22 1 CLOSED Fetus Data First Name Last Name Admitted to NICU Weight (g) Sex Living Outcome Pediatric Complications Fetus ID Race Codes Race Delivery Type 3259.96 5704 Full Term 83123 Vaginal Delivery Porfirio Calculation Initial Porfirio Date [...] Domestic Partner Domestic Partner Phone Father Name Brewer Helper Status 07/08/19 22 1 CLOSED Fetus Data First Name Last Name Admitted to NICU Weight (g) Sex Living Outcome Pediatric Complications Fetus ID Race Codes Race Delivery Type , Spontane ous 50913 Porfirio Calculation Initial Porfirio Date Initial Exam [...]
--- OUTSIDE RECORDS SUMMARY | 2024-10-03 00:55 | XMS_ITS | Clinical Summary ---
Author Organization [facility] Address [address] [place] [address] Care Team Providers Care Addictions Recovery Specialist Name Role Phone Brielle Medina MD Primary Care Provider Source Comments [facility] Affiliates and Associated Physician Practices is amultiple site organization consisting of ambulatory clinics and hospital sitesin [place], [place], [place] and [place]. This disclosure is being madepursuant to the Care Everywhere program and may not contain all information available regarding this patient. Last updated 18.[facility] Social History Tobacco Use Types Packs/Day Years Used Date Smoking Tobacco: Never Assessed Comments Unknown Sex and Gender Information Value Date Recorded Sex Assigned at Not on file Legal Sex Female 9:53 AM CDT Gender Identity Not on file Sexual Orientation Not on file Plan of Treatment Health Maintenance Due Date Last Done Comments PAP SMEAR 1990 HIV SCREENING 2005 HEPATITIS C SCREENING 11/07/2008 DTAP/TDAP/TD VACCINES (1 - Tdap) 2009 HEPATITIS B VACCINE (1 of 3 - 19+ 3-dose series) 2009 COVID-19 VACCINE ( - 2023-2 5 season) 2024 DEPRESSION SCREENING 05/09/2024 INFLUENZA VACCINE (Season Ended) 2025 ZOSTER VACCINE (1 of 2) 2040 HIB VACCINE Aged Out No longer eligi ble based on patient's age to complete this topic HPV VACCINE Aged Out No longer eligi ble based on patient's age to complete this topic MENINGOCOCCAL (Group B) VACC INE SHARED DECISION-MAKING Aged Out No longer eligibl e based on patient's age to complete this topic MENINGOCOCCAL GROUPS A/C/Y/W VACCINE Aged Out No longer eligible b ased on patient's age to complete this topic PNEUMOCOCCAL VACCINE Aged Out No long er eligible based on patient's age to complete this topic Insurance [facility] Care Teams Addictions Recovery Specialist Relationship Specialty Start Date End Date Brielle Medina MD [address] [place], [place] [phone] PCP - General 01/24/21
--- OUTSIDE RECORDS SUMMARY | 2024-10-03 00:55 | XMS_ITS | Referral Summary ---
Author Organization [facility] Address [address] [place] [address] Care Team Providers Care Ping Pong Table Assembler Name Role Phone Matildeenrike Tracey HYUN Primary Care Provider Allergies No known active allergies Medications lidocaine [...] Treatment Not on file Insurance Care Teams Ping Pong Table Assembler Relationship Specialty Start Date End Date Tracey Clifton NP [address] [place] [phone] PCP - General Nurse Practitioner 09/02/23
[2024-10-03] MEDS: LACTATED RINGERS 1,000 ML 30 ML IV CONT ×2 (08:35→11:39)
[2024-10-03] MEDS: KETOROLAC 15 MG/ML VIAL (*BKC) IV PUSH (08:40)
[2024-10-03] MEDS: ACETAMINOPHEN 500 MG TABLET 1000 MG PO (08:40)
[2024-10-03 08:51] LABS: BEDSIDEPREGUCG Negative (Negative)
--- NOTE | 2024-10-03 10:09 | WPDANESEPPF ---
Anes - Initial Pre Proc Eval Procedure: Operation Date: 10/03/24 10:00 Proposed Procedures p Hysteroscopy with Berenice Endometrial Ablation, Laparoscopic Bilateral Salpingectomy - Mick Xie MD Date/Time: 10/03/24 10:09 Surgeon: Mick Xie MD Pre Op Diagnosis: Menorrhagia, Female Sterilization Patient Data Age: 33 Gender: F Height: 1.78 m Weight: 65.8 kg Last Vital Signs Temp 98.1 F 10/03/24 08:20 Pulse 89 10/03/24 08:20 Resp 16 10/03/24 08:20 BP 121/80 10/03/24 08:20 Pulse Ox 98 10/03/24 08:20 O2 Del Method Room Air 10/03/24 08:20 Allergies Allergy/AdvReac Type Severity Reaction Status Date / Time No Known Allergies Allergy Verified 10/03/24 09:22 Home Medications ?Medication ?Instructions ?Recorded ?Confirmed ?Type clonidine HCl 0.2 mg tablet 0.2 mg PO DAILY 02/09/24 10/03/24 History cyproheptadine 4 mg tablet 4 mg PO Q4H 02/09/24 10/03/24 History fluvoxamine 150 mg 300 mg PO .HS 09/24/24 10/03/24 History capsule,extended release 24 hr lamotrigine 200 mg tablet,extended 200 mg PO .HS 09/24/24 10/03/24 History release 24 hr Laboratory Tests 10/03/24 08:20 POC Urine HCG, Qual Negative (Negative) Patient hx anesthesia problems: none Family hx anesthesia problems: none Results Review: All pre-operative results and documents have been reviewed as part of the pre-operative evaluation. [facility] Past Medical History Medical History Head ache Arthritis Anxiety Severe bipolar disorder Polysubstance abuse marijuana Tobacco abuse Pain during labor Surgical History Surgical History H/O dilation and curettage Family History Family History Father Depression Alcoholism Hypertension Mother Diabetes mellitus Hypertension Depression Heart disease Sibling Asthma Depression Alcoholism Cerebrovascular accident Grandparent Diabetes mellitus Heart disease Cerebrovascular accident Thyroid disorder Hypertension Depression Grandparent Hypertension Social History Social History Social History: sexually active Smoking packs per day: 0.5 Smoking cigarettes per day: 10.0 Years smoked: 20 Smoking pack-years: 10.00 Smoking status: Current every day smoker Tobacco type: cigarettes Second hand tobacco smoke exposure: Yes Alcohol intake: former Alcohol use details: vodka a few on weekends Substance use: current Substance use type: marijuana Other substance usage details: Smoke daily Do You Feel Safe in your Home?: Yes Lack of Transportation: No Lack of Food: Never True Current Housing: I Have Housing Concerned About Future Housing: No Difficulty Paying Gas/Electric Bills: No Difficulty Paying for Meds: No Currently Unemployed: No Education: High School Diploma/GED Difficulty w/ Childcare or Family Care: No Living arrangements: with family Additional living arrangements comments: Mom and 3 kids Spiritual care concerns: No Agree to blood products: Yes Anes - Eval Final PreProcedure Day of Procedure 10/03/24 10:09 Patient weight: normal Lungs: normal air movement Airway: Mallampati scale class II Neurological: alert and oriented Last oral intake: >/= 8 hours ASA classification: II Emergent: no Anesthetic plan: proceed Anesthesia type and monitoring: general ETT and standard monitoring Results Review: All pre-operative results and documents have been reviewed as part of the pre-operative evaluation. Anxiety, smoker 1 ppd, smoked at 730 am, hx of bipolar disorder per EMR. Informed Consent: The patient's anesthetic plan and its attendant risks and benefits were discussed with the patient/family/POA. Questions were solicited and answers provided to the satisfaction of the patient/family/POA.
--- NOTE | 2024-10-03 10:26 | P.HP_ITS ---
H&P: HPI History of Present Illness Date/Time: 10/03/24 10:26 Chief Complaint: Unwanted fertility, heavy vaginal bleeding Narrative: This patient is a 33-year-old female with severe menorrhagia and unwanted fertil ity. We agreed to perform hysteroscopy with endometrial ablation and laparoscopic bilateral salpingectomy. She understands risks, benefits, and alternatives she has completed informed consent process is ready to proceed. The patient understands the details of the procedure. The procedure has been explained in detail. She understands the risks. She understands that injuries may occur that result in hospitalization, more surgery, and severe illness. She understands risk of hemorrhage and infection. She denies any chest pain or shortness of breath. She denies any nausea, vomiting, fever, chills. Review of Systems Review of Systems: All systems reviewed & are unremarkable except as noted in HPI and below Constitutional: Constitutional: Denies chills, Denies fatigue, Denies fever(s) and Denies weakness Eyes: Eyes: Denies blurry vision, Denies change in vision, Denies loss of peripheral vision, Denies loss of vision, Denies other visual disturbances and Denies eye pain ENT: Denies vertigo, Denies dizziness, Denies hearing loss, Denies mouth pain, Denies nasal obstruction, Denies neck mass and Denies neck pain Cardiovascular: Cardiovascular: Denies chest pain, Denies diaphoresis, Denies syncope, Denies leg edema and Denies dyspnea Respiratory: Respiratory: Denies chest congestion, Denies cough, Denies hemoptysis, Denies dyspnea and Denies wheezing Gastrointestinal: Gastrointestinal: Denies abdominal pain, Denies constipation, Denies diarrhea, Denies nausea and Denies vomiting Genitourinary: Genitourinary: Denies hematuria, Denies change in libido, Denies nocturia, Denies genital lesions, Denies flank pain and Denies urinary urgency Musculoskeletal: Musculoskeletal: Denies abnormal gait, Denies back pain, Denies myalgias, Denies arthralgias, Denies joint swelling, Denies muscle weakness and Denies neck pain Integumentary/Breasts: Skin/Breast: Denies swelling, Denies breast pain, Denies breast mass, Denies dry skin, Denies nipple discharge, Denies unusual bruising and Denies jaundice Neurologic: Denies Neuro-related abnormal movements, Denies Abnormal speech present, Denies abnormal gait, Denies behavioral changes, Denies confusion, Denies vertigo, Denies dizziness, Denies syncope, Denies loss of vision, Denies memory loss, Denies convulsions and Denies weakness Psychiatric: Psychiatric: Denies abnormal sleep pattern, Denies behavioral changes, Denies change in libido, Denies confusion, Denies depression, Denies anhedonia and Denies memory loss Endocrine: Endocrine: Reports no additional endocrine complaints, Denies change in libido and Denies fatigue Hematologic/Lymphatic: Hematologic/Lymphatic: Reports no additional hematologic/lymphatic complaints Allergic/Immunologic: Allergic/Immunologic: Reports no additional allergic/immunologic complaints and Denies wheezing PMFSH Past Medical History Medical History Head ache Arthritis Anxiety Severe bipolar disorder Polysubstance abuse marijuana Tobacco abuse Pain during labor Surgical History Surgical History H/O dilation and curettage Family History Family History Father Depression Alcoholism Hypertension Mother Diabetes mellitus Hypertension Depression Heart disease Sibling Asthma Depression Alcoholism Cerebrovascular accident Grandparent Diabetes mellitus Heart disease Cerebrovascular accident Thyroid disorder Hypertension Depression Grandparent Hypertension Social History Social History Social History: sexually active Smoking packs per day: 0.5 Smoking cigarettes per day: 10.0 Years smoked: 20 Smoking pack-years: 10.00 Smoking status: Current every day smoker Tobacco type: cigarettes Second hand tobacco smoke exposure: Yes Alcohol intake: former Alcohol use details: vodka a few on weekends Substance use: current Substance use type: marijuana Other substance usage details: Smoke daily Do You Feel Safe in your Home?: Yes Lack of Transportation: No Lack of Food: Never True Current Housing: I Have Housing Concerned About Future Housing: No Difficulty Paying Gas/Electric Bills: No Difficulty Paying for Meds: No Currently Unemployed: No Education: High School Diploma/GED Difficulty w/ Childcare or Family Care: No Living arrangements: with family Additional living arrangements comments: Mom and 3 kids Spiritual care concerns: No Agree to blood products: Yes Meds Home Medications and Allergies Home Medications ?Medication ?Instructions ?Recorded ?Confirmed ?Type clonidine HCl 0.2 mg tablet 0.2 mg PO DAILY 02/09/24 10/03/24 History cyproheptadine 4 mg tablet 4 mg PO Q4H 02/09/24 10/03/24 History fluvoxamine 150 mg 300 mg PO .HS 09/24/24 10/03/24 History capsule,extended release 24 hr lamotrigine 200 mg tablet,extended 200 mg PO .HS 09/24/24 10/03/24 History release 24 hr Allergies Allergy/AdvReac Type Severity Reaction Status Date / Time No Known Allergies Allergy Verified 10/03/24 09:22 Vital Signs Vital Signs - 24 hr 10/03/24 08:20 Temperature 98.1 F Pulse Rate 89 Respiratory Rate 16 Blood Pressure 121/80 Pulse Oximetry 98 Oxygen Delivery Room Air Exam Const: General: cooperative, healthy appearing, comfortable and no acute distress Orientation/consciousness: oriented to person, oriented to place and oriented to time HENMT: Head: normal to inspection Ears: external ears normal Face/Nose/Sinus: Normal external nose present and normal facial exam Face and sinus: normal facial exam Eyes: General: appearance normal, both eyes and all related structures Neck: Neck: normal visual inspection, trachea midline and supple Resp: Auscultation: clear to auscultation bilaterally, no crackles, no rales, no rhonchi and no wheezes Cardio: Rate: regular rate Rhythm: regular rhythm Heart sounds: no click, no murmurs and no rubs GI: GI Palp: No abdominal tenderness, No Soft to palpation, No Tenderness to palpation present (GI) and No Palpable mass present Auscultation: normal bowel sounds Skin: General skin exam: normal color and no rashes or lesions noted Neuro: General: oriented to person, oriented to place and oriented to time Extrem: General: normal to inspection, no joint enlargement, no clubbing, cyanosis or edema, no pedal edema and no calf tenderness Psych: Appearance: grossly normal Mental Status: mental status grossly normal Speech and movement: Normal speech and movement present Assessment and Plan Assessment and plan (1) Menorrhagia: Code(s): N92.0 - Excessive and frequent menstruation with regular cycle Status: Acute (2) Unwanted fertility: Code(s): Z30.09 - Encounter for other general counseling and advice on contraception Status: Acute Plan This patient is a 33-year-old female with severe menorrhagia and unwanted fertility. We agreed to perform hysteroscopy with endometrial ablation and laparoscopic bilateral salpingectomy. She understands risks, benefits, and alternatives she has completed informed consent process is ready to proceed.
--- NOTE | 2024-10-03 10:28 | WPDHPUPDATE1 ---
History and Physical Update Update Date/Time: 10/03/24 10:28 History and Physical has been reviewed, including an updated exam of the patient. There are NO changes in the patient's condition. Risks, benefits, and alternatives have been discussed and questions answered. Patient agrees to proceed with procedure.
--- NOTE | 2024-10-03 11:25 | S_PTH ---
PATIENT: Karen Henderson LOC: [facility] U#:[id number] AGE/SX: 33/F ROOM: RE10/03/[address]: Mick Xie MD : 1990 BED: DIS: 10/03/2024 SPEC #: [id number] RECD: 10/03/24 13:04 STATUS: MAI REQ #: [id number] HELADIO: 10/03/24 11:[address]: Mick Xie DEPT: [facility] Surgical RECD BY: Tana Amaya ENTERED: 10/03/24 13:04 SP TYPE: Surgical OTHR DR: Tracey Clifton APRN Tissues: A - Fallopian Tube Bilateral B - Endometrial Curettings Procedures: Gross and Microscopic Level 2 Hematoxylin and Eosin Stain Gross and Microscopic Level 4
--- NOTE | 2024-10-03 11:39 | P.OP_ITS ---
Procedure Note - Detailed Date of Procedure 10/03/24 Pre-op Diagnosis Menorrhagia, Female Sterilization Post-op Diagnosis Same Procedure Performed Laparoscopic bilateral salpingectomy with endometrial ablation and hysteroscopy. Surgeon Mick Xie MD Anesthesia General Indications Menorrhagia, female sterilization Findings Normal-appearing vulva, vagina, cervix. Normal-appearing endometrial cavity Description of Procedure Patient was taken the operating room. She has prepped draped in the dorsal lithotomy position after induction of general anesthesia. A 5 mm abdominal incision was made in left upper quadrant of the abdomen with scalpel. A 5 mm trocars inserted the intra-abdominal cavity under direct visualization of the scope. Pneumoperitoneum was achieved. A 5 mm periumbilical incision was made using a scalpel on the abdominal scan. A 5 mm trocar was inserted the intra- abdominal cavity under visualization of the scope. A 5 mm incision made left lower quadrant of the abdomen. A 5 mm trocar was inserted the intra-abdominal cavity and direct visualization of the scope. The bilateral fallopian tubes were removed. The paratubal tissue in the area of the uterus was grasped with the LigaSure cautery and transected after being cauterized. The paratubal tissue from the ovary to the uterine cornu was cauterized and transected with LigaSure cautery. This was all done in a bilateral fashion. The tube was transected at the area of the uterine cornua and the tubes was removed through the 5 mm trocar site. The pneumoperitoneum was reduced. The trocars were removed. The skin was closed with subcuticular 4 Monocryl and covered with Dermabond. Our attention was then turned to the endometrial ablation portion of the procedure. A speculum was placed in the vagina. The cervix was grasped with a tenaculum. The cervix was dilated to approximately 8 mm with Castano dilators. The hysteroscope was inserted. And the below findings were noted. All of the intrauterine surfaces were curettaged with a medium-size curette and the specimens were collected. Measurements of the cervix were taken using the uterine sound and the hysteroscope. The intrauterine cavity measurements were entered into the handpiece. The device was inserted into the intrauterine cavity and the array was expanded. The balloon cuff was inflated. When an adequate seal was formed the safety and energy cycles were initiated and completed. The array was collapsed, the balloon was deflated. The insert was withdrawn. The hysteroscope was reinserted and a well desiccated intrauterine cavity was observed. The patient was taken recovery room stable condition. Sponge lap and needle counts were correct x2. She tolerated the procedure well. Pathology Yes Complications No immediate complications Condition Stable Disposition PACU
[2024-10-03] MEDS: fentaNYL CITRATE INJ (*CRX) 100 MCG/2 ML VIAL 25 MCG IV PUSH ×8 (11:50→12:21)
[2024-10-03] MEDS: oxyCODONE HCL (*CRX) 5 MG TAB IR PO (13:11)
== END 2024-10-03 14:00 | disposition home or self-care (01) ==
PROVIDERS: PCP Nurse Practitioner Adult Health; Visit Provider Obstetrics & Gynecology
PROC: 0UDB8ZZ Extraction of Endometrium, Via Natural or Artificial Opening Endoscopic (ICD-10-PCS; CPT 58558; principal; 2024-10-03 10:00)
DX: N92.0 Excessive and frequent menstruation with regular cycle (principal); Z30.2 Encounter for sterilization; N94.89 Other specified conditions associated with female genital organs and menstrual cycle; F17.210 Nicotine dependence, cigarettes, uncomplicated; F12.90 Cannabis use, unspecified, uncomplicated
CPT/HCPCS: 58661; 58563; 88302; 88305; A9270; J1100; J1885; J2250; J2405; J2704; J3010; J7120

== ENCOUNTER 2024-10-16 06:49 | Day surgery (SDC) | payer OTHER, SELFPAY ==
--- NOTE | ~2024-10-16 | XR_ITS ---
XR fluoroscopy no charge Indication:bilateral L3, L4 and L5 medial branch block TECHNIQUE: Fluoroscopy used during bilateral L3, L4 and L5 medial branch block performed by [Minesh Mcpherson MD] on 10/16/2024. 56 seconds with 12 fluoroscopic images captured. FINDINGS: Correlate with procedure note. IMPRESSION: Fluoroscopy used during bilateral L3, L4 and L5 medial branch block. Reviewed, dictated and finalized at location B. IMPRESSION: Fluoroscopy used during bilateral L3, L4 and L5 medial branch block .
--- NOTE | 2024-10-16 06:28 | WPDHPUPDATE1 ---
History and Physical Update Update Date/Time: 10/16/24 06:28 History and Physical has been reviewed, including an updated exam of the patient. There are NO changes in the patient's condition. Risks, benefits, and alternatives have been discussed and questions answered. Patient agrees to proceed with procedure.
--- NOTE | 2024-10-16 06:28 | W.PM.PROC2 ---
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 ( 4 levels blocked). Surgeon Zaid Mcpherson MD Foxing Painter None. Anesthesia Local Description of Procedure INFORMED CONSENT: Risks, benefits and alternatives to the procedure were discussed in detail with the patient who expressed explicit understanding and consent to proceed. Patient was informed verbally and in written form regarding the risks associated with the procedure including the low risk of serious infection, bleeding/bruising, allergic reaction, nerve or organ injury, paralysis, procedural site pain or discomfort, worsening pain and/or mobility, failure to treat and/or disfigurement. The patient expressed explicit understanding and consent to proceed. All materials required for the procedure were available prior to procedure start. Site and side were marked prior to procedure and confirmed in the presence of the patient. PROCEDURE IN DETAIL: The patient was brought to the procedural suite and placed in the prone position. Patient was made comfortable with use of pillows under the head/chest, hips and ankles. Skin overlying the injection site on the affected side(s) was prepared broadly with ChloraPrep applicator and draped in a sterile manner. Aseptic technique was used throughout. The endplates of the vertebral bodies at the site(s) of interest were aligned in the AP view. Ipsilateral oblique angulation was utilized to optimize visualization of the intersection between the superior articulating process and transverse process at each target site. Local anesthesia was established by infiltration with approximately 5 mL of 1% lidocaine via a 1-1/2 inch 27-gauge needle. A 25-gauge 3.5 inch Quincke spinal needle was advanced until the needle tip contacted periosteum at the target site, right L3. Lateral view was utilized to confirm the appropriate placement of the needle tip just anterior to the facet line and superior to the pedicle. In the Lateral view, 0.25 mL of Omnipaque 300 contrast medium was injected after negative aspiration for CSF, blood or other bodily fluid, showing appropriate extra-articular spread of contrast without evidence of intravascular, foraminal or intrathecal placement. A 0.5 mL solution of 0.5% PF bupivacaine was injected after negative repeat aspiration. Appropriate spread of the injectate was confirmed with washout of previously injected contrast. No parasthesias were elicited. Needle was removed completely intact without difficulty. The same exact procedure was repeated for all remaining levels on the ipsilateral side, right L4, L5 medial branches/dorsal ramus, modified as necessary to accommodate for the new target location with identical findings and results and no evidence of complication. The same exact procedure was repeated for all remaining levels on the contralateral side, left L3, L4, L5 medial branches/dorsal ramus, modified as necessary to accommodate for the new target location with identical findings and results and no evidence of complication. Images were saved and documented in the patient chart. Patient's skin was cleaned and sterile bandage applied. The patient tolerated the procedure well. The patient was transported to the recovery area in stable condition where they were observed for an appropriate amount of time prior to discharge, without evidence of complication. Patient was instructed on the appropriate completion of a pain diary over the next 12-24 hours. The patient was instructed to avoid excessive activity for the next 48 hours, including climbing and frequent use of stairs. Showers only for 48 hours. They were instructed not to drive or operate heavy machinery for 24 hours. They are to monitor for severe headaches, fevers, chills, night sweats, erythema/swelling at the site or any other signs of infection, bleeding/bruising, bowel or bladder changes as well as new pain, weakness or numbness in the upper or lower extremity. Should they notice these changes, they are instructed to call our office immediately or report directly to the nearest Emergency Department if no answer or if after posted office hours. COMPLICATIONS: None COMMENTS: None CONTRAST WASTED: 28.5mL Omnipaque 300. Complications No immediate complications Condition Stable Disposition Same day [facility] Billing Surgery - Charge Forward: Surgery Billing
--- OUTSIDE RECORDS SUMMARY | 2024-10-16 07:19 | XMS_ITS | Clinical Summary ---
Author Organization [facility] al Address [address] [place] [address] Care Team Providers Care Pediatric Hospitalist Name Role Phone Janusz Cliftonie HYUN Primary Care Provider [phone] Allergies No known active allergies Medications lidocaine [...] to complete this topic Insurance Care Teams Pediatric Hospitalist Relationship Specialty Start Date End Date Tracey Clifton NP [address] [place] [address] PCP - General Nurse Practitioner 09/02/23
--- OUTSIDE RECORDS SUMMARY | 2024-10-16 07:19 | XMS_ITS | Clinical Summary ---
Author Organization [facility] Address [address] [place] [address] Care Team Providers Care Scallop Raker Name Role Phone Brielle Medina MD Primary Care Provider Source Comments [facility],non-[facility] Affiliates and Associated Physician Practices is amultiple site organization consisting of ambulatory clinics and hospital sitesin [place], [place], [place] and [place]. This disclosure is being madepursuant to the Care Everywhere program and may not contain all information available regarding this patient. Last updated 18.[facility] Social History Tobacco Use Types Packs/Day [...] patient's age to complete this topic Insurance [facility] SELF PAY NO INSURANCE Member Subscriber Plan / Payer (Ef fective for All Dates) Name:Karen Beltran Member ID:Not on file Relation to Subscriber:Not on file Name:KAREN BELTRAN Subscriber ID:Not on file (Home) Address: [address] [place] [address] [place] [id number] Payer ID:Not on file Group ID:Not on file Type:Self Pay Address: [place], [place] Care Teams Scallop Raker Relationship Specialty Start Date End Date Brielle Medina MD [address] [place], [place] [id number] PCP - General 01/24/21
--- OUTSIDE RECORDS SUMMARY | 2024-10-16 07:19 | XMS_ITS | Referral Summary ---
Author Organization [facility] al Address [address] [place] [address] Care Team Providers Care Car Jockey Name Role Phone Matildeenrike Tracey HYUN Primary Care Provider [phone] Allergies No known active allergies Medications lidocaine [...] Treatment Not on file Insurance Care Teams Car Jockey Relationship Specialty Start Date End Date Tracey Clifton NP [address] [place] [id number] PCP - General Nurse Practitioner 09/02/23
--- OUTSIDE RECORDS SUMMARY | 2024-10-16 07:20 | XMS_ITS | Data Portability ---
Author Organization [facility] Address [address] [place] [address] Care Team Providers Care Mechanical Assembler Name Role Phone GLADYS LEE Primary Care Provider [phone] Assessment Encounter Date Assessment Date Assessment LastModified by Organization Details LastModified Time 05/23/2024 05/23/2024 Annual gynecological exam performed. Patient will come back in a year unless there are new symptoms. [email or web address] Not available 05/23/2024 11:14:03 Plan of Treatment Reminders Order Date Submit Date Provider Last Modified By Organization Details Last Modified Time Details Appointments None recorded. Lab None recorded. Referral None recorded. Procedures None recorded. Surgeries hysteroscop y, with endometrial ablation (SURG) 2024 025 API-[id number] [facility], [facility] [address], [address], 5 11:38:09 salpingecto my, laparoscopi c (SURG) 2024 025 [facility], [facility] [address], [address], 5 14:35:16 Imaging None recorded. Medication Orders Xulane 150 mcg-35 mcg/24 hr transdermal patch [id number], [address] , [place], [address], 5 15:35:16 Depo-Auto Transmission Technician a 150 mg/mL intramuscul ar suspension 2023 024 [email or web address] Not available 15:34:36 Patient TargetsNo targets recorded. Patient InstructionsNo instructions recorded. Reason for Referral None Reported. Results Created Date Observation Date Name Description Value Unit Range Abnormal Flag Note LastModifiedBy Organization Detail LastModifiedTime Result Notes None recorded. Procedures Surgical History Date Name Laterality Status Provider Name and Address Organization Details Recorded Time 10/04/19 25 Endometrial Ablation completed Norma Shi [facility] 10/12/2024 15:36:17 10/04/19 25 SALPINGECTOMY, LAPAROSCOPIC (SURG) completed Cyn Reich [facility] 10/04/2024 09:01:16 01/03/20 23 Date of Last Pap Smear completed Maria Fernanda Calyton [facility] 08/18/2024 11:36:21 05/09/19 16 Dilation and Curettage completed Desiree Doran [facility] 07/07/2021 14:19:39 05/09/19 10 Dilation and Curettage completed [facility] 07/07/2021 14:19:28 Imaging Results None recorded. [...] MOUTH AT BEDTIME NEEDED FOR MUSCLE SPASM 10/12 completed Not Available Not Available Not Available clonidine HCl 0.1 mg tablet TAKE 1 TABLET BY MOUTH EVERY DAY IN THE MORNING 02/20 completed Not Available Not Available Not Available lamotrigi ne 200 mg tablet TAKE 1 TABLET BY MOUTH TWICE DAILY 07/07 completed Not Available Not Available Not Available ibuprofen 800 mg tablet TAKE 1 TABLET (ORAL) 3 TIMES PER DAY NEEDED 10/12 completed Not Available Not Available Not Available fluconazo le 150 mg tablet TAKE 1 TABLET BY MOUTH NOW 07/07 completed Not Available Not Available Not Available hydrocodo ne 5 mg-acetam inophen 325 mg tablet TAKE 1 TO 2 TABLETS BY MOUTH EVERY 6 HOURS NEEDED FOR PAIN active Not Available Not Available No t Available terconazo le 0.8 % vaginal cream [...] Not Available lamotrigi ne 25 mg tablet 10/12 completed Not Available Not Available Not Available cyprohept [...] cular route as directed for 90 days. 10/12 completed 02/21/20 24 Patient is here for Depo (supplie d by patient from pharmacy ) injectio n lot [id number] Exp 04/2026 was given into right hip and patient is next due May 08, 2024 through May 22, 2024 Not Available Not Available Not Available fluvoxami ne 100 mg tablet TAKE 1.5 TABLETS BY MOUTH TWICE A DAY DIRECTED FOR 30 DAYS 10/12 completed Not Available Not Available Not Available nystatin 100,000 unit/gram topical cream APPLY [...] TWICE A DAY DIRECTED FOR 90 DAYS 10/12 completed Not Available Not Available Not Available naproxen 500 mg tablet TAKE 1 [...] X3 WEEKS, THEN PATCH FREE X1 WEEK 10/12 completed Not Available Not Available Not Available medroxypr ogesteron e 150 mg/mL intramusc ular syringe 10/12 completed Not Available Not Available Not Available escitalop [...] MOUTH EVERY 12 HOURS X 30 SEC 10/12 completed Not Available Not Available Not Available Oysco 500/D 500 mg-5 mcg (200 [...] 100 mg tablet,ex tended release 24 hr 10/12 completed Not Available Not Available Not Available Vitals Date Recorded Body height Body mass index (BMI) Body weight Systolic blood pressure Diastolic blood pressure Provider Name and Address Organization Details Last Updated DateTime 05/23/2024 175.26 cm 20.7 kg/m2 37455.93 g 125 mm[Hg] 78 mm[Hg] SIXTOJania Gomez [facility] 5 11:19:00 Date Recorded Body height Body mass index (BMI) Body weight Systolic blood pressure Diastolic blood pressure Provider Name and Address Organization Details Last Updated DateTime 08/18/2024 175.26 cm 20.6 kg/m2 64099.49 g 98 mm[Hg] 66 mm[Hg] Maria Fernanda Matilde [facility] 5 11:36:12 Date Recorded Body height Body mass index (BMI) Body weight Systolic blood pressure Diastolic blood pressure Provider Name and Address Organization Details Last Updated DateTime 10/12/2024 175.26 cm 21.1 kg/m2 47445.71 g 105 mm[Hg] 67 mm[Hg] Norma Shi [facility] 5 15:34:05 Date Recorded Body height Body mass index (BMI) Body weight Systolic blood pressure Diastolic blood pressure Provider Name and Address Organization Details Last Updated DateTime 02/21/2024 175.26 cm 20.5 kg/m2 00258.34 g 106 mm[Hg] 68 mm[Hg] Cyn Reich [facility] 11:26:30 Social History Question Answer Notes LastModified by Organizat ion Details LastModified Time Tobacco Smoking Status Current Every Day Smoker Helen Willis juan manuel, [facility] 03/21/2023 11:17:26 Do You Have An Advance Directive? No [email or web address] Information n ot available 07/07/2021 How Many Years Have You Consumed Alcohol? 9 [email or web address] Information not available 07/07/2021 Are You Blind Or Do You Have Difficulty Seeing? No [email or web address] Information n ot available 07/07/2021 What Is Your Level Of Caffeine Consumption? Moderate [email or web address] Information not available 07/07/2021 How Much Tobacco Do You Chew? None [email or web address] Information not available 07/07/2021 In The 14 Days Before Symptom Onset, Have You Had Close Contact With A Laboratory-confirm ed COVID-19 While That Case Was Ill? No [email or web address] Information n ot available 07/07/2021 In The 14 Days Before Symptom Onset, Have You Had Close Contact With A Person Who Is Under Investigation For COVID-19 While That Person Was Ill? No Information not available 07/07/2021 Have You Been To An Area Known To Be High Risk For COVID-19? No [email or web address] Information not available 07/07/2021 Are You Deaf Or Do You Have Serious Difficulty Hearing? No [email or web address] Information not available 07/07/2021 What Type Of Diet Are You Following? REGULAR [email or web address] Information n ot available 07/07/2021 What Is The Highest Grade Or Level Of School You Have Completed Or The Highest Degree You Have Received? [id number] [email or web address] Information not available 07/07/2021 Are There Any Guns Present In Your Home? No [email or web address] Information not available 07/07/2021 What Is Your Current Pack Years? 10-19packyear s Information not available 03/21/2023 Have You Ever Been Counseled For Unhealthy Alcohol Use? No [email or web address] Information not available 05/23/2024 Do You Use Protection During Sex? Usually [email or web address] Information not available 07/07/2021 Do You Use Your Seat Belt Or Car Seat Routinely? Yes [email or web address] Information not available 07/07/2021 Are You Sexually Active? Yes [email or web address] Information not available 05/23/2024 Do You Have Smoke And Carbon Monoxide Detectors In Your Home? Yes [email or web address] Information not available 07/07/2021 At What Age Did You Start Smoking Tobacco? 13 [email or web address] Information not available 07/07/2021 How Much Tobacco Do You Smoke? 0.25 PPD [email or web address] Information not available 02/21/2024 Do You Use Sunscreen Routinely? Yes [email or web address] Information not available 07/07/2021 How Many Years Have You Smoked Tobacco? 17 [email or web address] Information not available 07/07/2021 Have You Used IV Drugs? No [email or web address] Information not available 07/07/2021 Do You Have Difficulty Walking Or Climbing Stairs? No [email or web address] Information not available 05/23/2024 Sex: Female Functional Status Question Answer Note LastModified by Organizat ion Details LastModified Time Do you use any illicit or recreational drugs? No Information not available 07/07/2021 What is your level of alcohol consumption? Occasional [email or web address] Information not available 07/07/2021 Are you currently employed? Yes [email or web address] Information not available 05/23/2024 Are you able to walk? YESWOREST [email or web address] Information not available 07/07/2021 Are you able to care for yourself? Yes Information not available 05/23/2024 What is your occupation? [employer] Information not available 08/10/2021 Do you have difficulty dressing or bathing? No Information not available 05/23/2024 What is your exercise level? Heavy Information not available 08/10/2021 Mental Status Question Answer Note LastModified by Organization D etails LastModified Time Do you feel stressed (tense, restless, nervous, or anxious, or unable to sleep at night)? [id number] Information not available 08/10/2021 Family History Relationship Description Onset Age of this Age Resolved Age Notes LastModified by Organization Details LastModified Time Maternal Grandmother Depressive disorder [email or web address] Not available 2021 14:15:00 Maternal Grandmother Mental disorder [email or web address] Not available 2021 14:15:00 Mother Anxiety disorder [email or web address] Not available 2021 14:15:00 Mother Depressive disorder [email or web address] Not available 2021 14:15:00 Mother Mental disorder [email or web address] Not available 2021 14:15:00 Brother Mental disorder [email or web address] Not available 2021 14:15:00 Brother Anxiety disorder Not available 2021 14:15:00 Brother Depressive disorder [email or web address] Not available 2021 14:15:00 Sister Depressive disorder [email or web address] Not available 2021 14:15:00 Sister Asthma [email or web address] Not available 0 07/07/2021 14:15:00 Sister Mental disorder [email or web address] Not available 2021 14:15:00 Sister Malignant tumor of cervix Not available 2021 14:24:42 Maternal Aunt Depressive disorder [email or web address] Not available 2021 14:15:00 Maternal Aunt Mental disorder [email or web address] Not available 2021 14:15:00 Father Anxiety disorder [email or web address] Not available 2021 14:15:00 Father Depressive disorder [email or web address] Not available 2021 14:15:00 Father Mental disorder [email or web address] Not available 2021 14:15:00 Paternal Aunt Mental disorder Not available 2021 14:15:00 Maternal Grandfather Mental disorder [email or web address] Not available 2021 14:15:00 Paternal Uncle Mental disorder [email or web address] Not available 2021 14:15:00 Medical History Condition Response Other Y Blood Transfusion N Dermatologic Disorders N Gestational Diabetes N Anxiety Disorder Y Autoimmune disease N Arthritis N Polyps N Infertility N Acid Reflux (GERD) N Cancer N Varicosities N Stroke N Neurologic/Epilepsy Y Fibromyalgia N Headaches Y Kidney Disease N Heart Problems N Kidney or Bladder Problems N Eating Disorder N Art (IVF or FET) N Hepatitis/Liver Disease N No Past Medical History N Urinary Tract Infection N Asthma Y Trauma/Violence Y Thrombophilias N Allergies (Food, seasonal, environmental ) N Breast Cancer N Drug/Latex Allergies/Reactions N Lung Disease N Defects or Inherited Disease N Breast Problem N Hematologic disorders N Anesthesia Complications N History of STI N Deep Vein Thrombosis N Polycystic ovary syndrome N History of abnormal pap N Endometriosis N High Cholesterol N Thyroid Problems N GI Problems N Anemia N Psychiatric Illness Y Ovarian Cancer N Diabetes N Pulmonary (TB, Asthma) N Eczema N Abuse/Domestic Violence N Depression/ depression Y Heart Disease N Pre-Eclampsia N Hypertension N Osteoporosis N Gynecological History Statement/Question Response Flow Moderate Date of LMP 07/21/2024 N On BCP's at Conception? N STIs/STDs N Was last menstrual period normal N HPV Vaccine Y Duration of Flow (days) 7 Current Control Method Sterilizati on Age at First Child 21 Are cycles [...] SNOMED-CT Code Diagnosis ICD10 Code Diagnosis Note [id number] [facility] [address] [address] 07/07/2021 14:06:12 07/09/2021 13:02:31 Vaginitis 17972457 N76.0 Discussed use of mild soap like dove or ivory, cotton underwear w/out dye, hypoallerg enic detergent, wipe from front to back, avoid tub baths, keep perineum clean and dry, d/c use of baby wipes. Encouraged daily intake of yogurt or womens health probiotic. Internal and external affirm collected .Declines STD screen. Contracept ion care management [id number] Z30.9 UPT negative. Discussed all control options [...] signed. Pt verbalized understand ing. Bipolar disorder 2174894 4 F31.9 Pt is due for refills and does not currently have a pcp. I will refill one time. She will find a new pcp. Missed period [id number] N 92.5 . [id number] Mick Xie MD [place] [address],[facility] [address] 08/10/2021 14:50:17 08/10/2021 15:54:08 Cyst of Bartholin's gland duct 36554040 N75.0 This patient is a 30-year-ol d [...] over 15 minutes with the patient exam. [id number] MD Betito Cox [address],[facility] [address] 09/25/2021 09:44:52 09/25/2021 10:32:36 Abnormal uterine bleeding 9365633327 9100 N93.9 [id number] MD Betito Cox [address],[place] [address] 10/01/2021 10:46:53 10/01/2021 12:02:54 Abnormal uterine bleeding 3321325191 9100 N93.9 [id number] MD Betito Cox [address],[place] [address] 10/08/2021 14:19:24 10/12/2021 14:41:47 Contraception care management 890195580 Z30.9 Abnormal u terine bleeding 9703127923 9100 N93.9 this patient is a 30-year-ol [...] Depo-Prove ra. She was prescribed Depo-Prove ra. [id number] Mick Xie MD [place] [address],[place] [address] 10/12/2021 15:16:16 10/13/2021 15:14:56 Contraception care management 786507243 Z30.9 Contraception care 76052 5005 Z30.40 [id number] MD Betito Cox [address],[place] [address] 03/02/2022 10:28:09 03/02/2022 15:09:58 Contraception care management 264211076 Z30.9 [id number] MD Betito Cox [address],[place] [address] 05/27/2022 17:03:56 05/27/2022 17:28:47 Contraception care management 688672850 Z30.9 [id number] MD Betito Cox [address],[place] [address] 10/01/2022 11:58:24 10/05/2022 15:18:38 Contraception care management 535328656 Z30.9 [id number] Rhonda Mccain [facility] [address],[facility] [address] 12/23/2022 11:19:26 12/23/2022 11:44:18 Gynecologic examination 93004558 Z01.419 Take Calcium with Vitamin D 1200mg [...] naRoutine Labs PCP Contracept ion care management 956543894 Z30.9 Doing well on this method.No issues.Goi ng on 1yr Depo.If continues through 3yrs will need Dexa scan to check bone health.Rx sent x 1yr [id number] Rhonda Mccain [facility] [address] [address] 12/27/2022 17:04:33 12/27/2022 17:21:47 Contraception care management 391646209 Z30.9 Doing well on this method.No issues.Goi ng on 1yr Depo.If continues through 3yrs will need Dexa scan to check bone health.Rx sent x 1yr [id number] Rhonda Mccain [facility] [address],[place] [address] 03/21/2023 11:16:00 03/21/2023 14:25:06 Contraception care management 607792833 Z30.9 Doing well on this method.No issues.Goi ng on 1yr Depo.If continues through 3yrs will need Dexa scan to check bone health.Rx sent x 1yr [id number] Rhonda Mccain [facility] [address],[place] [address] 06/09/2023 14:53:12 06/09/2023 15:14:14 Contraception care management 859139935 Z30.9 Doing well on this method.No issues.Goi ng on 1yr Depo.If continues through 3yrs will need Dexa scan to check bone health.Rx sent x 1yr [id number] Rhonda Mccain [facility] [address],[place] [address] 08/31/2023 10:45:10 09/02/2023 13:47:48 Contraception care management 646264215 Z30.9 Doing well on this method.No issues.Goi ng on 1yr Depo.If continues through 3yrs will need Dexa scan to check bone health.Rx sent x 1yr [id number] Mick Xie MD [place] [address],[place] [address] 11/23/2023 14:58:21 11/23/2023 15:14:54 Contraception care management 688371482 Z30.9 [id number] Mick Xie MD [place] [address],[place] [address] 02/21/2024 11:06:40 02/21/2024 11:39:42 Contraception care 528646821 Z30.40 [id number] Shari Simon [facility] [address] [address] 05/23/2024 11:12:17 05/23/2024 12:24:32 Gynecologic examination 15174111 Z01.419 WWEPap - UTD/not indicated todaySTI screen [...] advised. Questions answered. Contracept ion care management 872284007 Z30.9 all BC options discussedw ould like to restart patchrx sent, r/b/a reviewedsm oking cessation encouraged (pt aware will no longer be candidate for this method at age 35 if continues smoking)di scussed possible decreased effectiven ess with current medication regimen - back up method recommende dquestions answered [id number] Mick Xie MD [place] [address] [address] 08/18/2024 11:29:12 08/18/2024 12:31:29 Female sterilization 12575529 Z30.2 Menorrhagia 077355896 N9 2.0 This patient is a 33-year-ol [...] 30 minutes on her care in total. [id number] Mick Xie MD [place] [address] [address] 10/03/2024 08:51:32 10/04/2024 09:44:46 [id number] Mick Xie MD [place] [address] [address] 10/12/2024 15:03:40 10/12/2024 16:12:37 Surgical follow-up 358865686 Z09 patient presents for postop follow-up after endometria l ablation. She is recovering normally. She has Watery vaginal discharge. She denies any foul-smell ing discharge. She denies any nausea, vomiting, fever, chills. She also had salpingect liane in recovering from that. She has no complaints . She is some abdominal tenderness . Incisions are clean dry and intact. Health Concerns Section Related Observation LastModified by Organization Detai ls LastModified Time None Recorded Concern Status LastModified by Organization Details LastModified Time None Recorded Advance Directives Directive N: Payers Encounter Date Sequence Insurance Name Policy Number Policy Estrella Covered Member ID Estrella Member ID Guarantor Name 02/21/2024 1 [facility] - DOS ON OR AFTER 20 (MEDICAID REPLACEMENT - HMO) Karen Henderson [id number] Karen Henderosn 05/23/2024 1 [facility] - DOS ON OR AFTER 20 (MEDICAID REPLACEMENT - HMO) Karen Henderson [id number] Karen Henderson 08/18/2024 1 [facility] ON OR AFTER 11/06/20 (MEDICAID REPLACEMENT - HMO) Karen Henderson [id number] Karen Henderson 10/03/2024 1 [facility] ON OR AFTER 11/06/20 (MEDICAID REPLACEMENT - HMO) Karen Henderson [id number] Karen Henderson 10/12/2024 1 [facility] ON OR AFTER 11/06/20 (MEDICAID REPLACEMENT - HMO) Karen Henderson [id number] Karen Henderson Notes Date Note Type Note [...] nilm, HPV (-) denies h/o DVT/PE, HTN, Stroke/OH, cancer, liver disease, or migraine with aurashe is a tobacco smoker DEBBIE Reynoso [address], [place], [address], [facility] 05/23/2024 11:44:21 08/18/2024 text/html This patient [...] minutes on her care in total. Mick Xie MD [address], [place], [address], [facility] 08/18/2024 12:30:08 10/12/2024 text/html patient presents for postop follow-up after endometrial ablation. She is recovering normally. She has Watery vaginal discharge. She denies any foul-smelling discharge. She denies any nausea, vomiting, fever, chills. She also had salpingectomy in recovering from that. She has no complaints. She is some abdominal tenderness. Incisions are clean dry and intact. Mick Xie MD [address], [place], [address], [facility] 10/12/2024 16:12:14 OBGyn Episode Ob Episode Information Episode Created Date Number of Fetuses Patient Bloodtype Patient rh Status Prepregnancy Weight lbs Domestic Partner Domestic Partner Phone Father Name Motorcycle Racer Status 07/08/19 22 1 CLOSED Fetus Data First Name Last Name Admitted to NICU Weight (g) Sex Living Outcome Pediatric Complications Fetus ID Race Codes Race Delivery Type 3175.14 4 Full Term [id number] Vaginal Delivery Porfirio Calculation Initial Porfirio Date [...] Domestic Partner Domestic Partner Phone Father Name Motorcycle Racer Status 07/08/19 22 1 CLOSED Fetus Data First Name Last Name Admitted to NICU Weight (g) Sex Living Outcome Pediatric Complications Fetus ID Race Codes Race Delivery Type 3826.95 5704 Full Term 65417 Vaginal Delivery Porfirio Calculation Initial Porfirio Date [...] Domestic Partner Domestic Partner Phone Father Name Motorcycle Racer Status 07/08/19 22 1 CLOSED Fetus Data First Name Last Name Admitted to NICU Weight (g) Sex Living Outcome Pediatric Complications Fetus ID Race Codes Race Delivery Type , Spontane ous [id number] Porfirio Calculation Initial Porfirio Date Initial Exam [...] Domestic Partner Domestic Partner Phone Father Name Motorcycle Racer Status 07/08/19 22 1 CLOSED Fetus Data First Name Last Name Admitted to NICU Weight (g) Sex Living Outcome Pediatric Complications Fetus ID Race Codes Race Delivery Type 3259.96 5704 Full Term 79317 Vaginal Delivery Porfirio Calculation Initial Porfirio Date [...] Domestic Partner Domestic Partner Phone Father Name Motorcycle Racer Status 07/08/19 22 1 CLOSED Fetus Data First Name Last Name Admitted to NICU Weight (g) Sex Living Outcome Pediatric Complications Fetus ID Race Codes Race Delivery Type , Spontane ous [id number] Porfirio Calculation Initial Porfirio Date Initial Exam [...]
[2024-10-16 07:29] VITALS: BP 103/63; PULSE 79; RESP 16; TEMP 36.9; O2SAT 100
[2024-10-16 07:50] VITALS: BP 102/57; PULSE 61; RESP 15; O2SAT 97
[2024-10-16 07:55] VITALS: BP 90/55; PULSE 72; RESP 16; O2SAT 97
[2024-10-16] MEDS: BUPivacaine HCL 0.5% 10 ML AMP 5 ML INFILTRATE (07:58)
[2024-10-16 07:59] VITALS: BP 94/51; PULSE 65; RESP 11; O2SAT 96
[2024-10-16] MEDS: LIDOCAINE 1% PF INJ 5 ML VIAL INFILTRATE (07:59)
[2024-10-16 08:03] VITALS: BP 104/70; PULSE 70; RESP 18; O2SAT 100
== END 2024-10-16 08:17 | disposition home or self-care (01) ==
LOC: ASC 07:15
PROVIDERS: PCP Nurse Practitioner Adult Health; Visit Provider Anesthesiology Pain Medicine
PROC: (CPT 64493; principal; 2024-10-16 07:50)
DX: M47.817 Spondylosis without myelopathy or radiculopathy, lumbosacral region (principal); G89.29 Other chronic pain
CPT/HCPCS: 64493 ×2; 64494 ×2; 64495 ×2; 99199

== ENCOUNTER 2024-11-13 08:53 | Day surgery (SDC) | payer OTHER, SELFPAY ==
[2024-11-06 11:33] VITALS: BMI 20.5
--- NOTE | ~2024-11-13 | XR_ITS ---
INTRAOPERATIVE FLUOROSCOPY: CLINICAL HISTORY: 34 years old Female; DIAG/PROG JOHNNY L3,L4,L5 NERVE BLK PROCEDURE COMMENTS: Limited intraoperative fluoroscopy of the lumbar spine was performed. CUMULATIVE DOSE: 8.1 mGy FLUOROSCOPY TIME: 57 seconds FINDINGS/IMPRESSION: Please refer to operative note for further details. Reviewed, dictated and finalized at location A.
--- OUTSIDE RECORDS SUMMARY | 2024-11-13 09:00 | XMS_ITS | Referral Summary ---
Author Organization [facility] Address [address] [place] [address] Care Team Providers Care Demand Inspector Name Role Phone Matildeenrike Tracey HYUN Primary Care Provider [phone] Allergies No known active allergies Medications lidocaine [...] Treatment Not on file Insurance Care Teams Demand Inspector Relationship Specialty Start Date End Date Tracey Clifton NP [address] [place] [phone] PCP - General Nurse Practitioner 09/02/23
--- OUTSIDE RECORDS SUMMARY | 2024-11-13 09:00 | XMS_ITS | Data Portability ---
Author Organization [facility] [address] [place] [address] Care Team Providers Care Electronic Intelligence Officer Name Role Phone GLADYS LEE Primary Care [...] y, with endometrial ablation (SURG) 20[email or web address] [place] [address], [facility] [address], [address], 13:56:16 salpingecto my, laparoscopi c (SURG) [facility] [address], [address], 5 14:35:16 Imaging None recorded. Medication Orders Xulane 150 mcg-35 mcg/24 hr transdermal patch 2024 025 [email or web address] [id number], [address], [place], [address], 15:35:16 Depo-Vp Biology a 150 mg/mL intramuscul ar suspension 2023 [...] 10/04/19 25 Endometrial Ablation completed Norma Shi [facility] 10/12/2024 15:36:17 10/04/19 25 SALPINGECTOMY, LAPAROSCOPIC (SURG) completed Cyn Reich [facility] 10/04/2024 09:01:16 01/03/20 23 Date of Last Pap Smear completed Maria Fernanda Clayton [facility] 08/18/2024 11:36:21 05/09/19 16 Dilation [facility]ttage [facility] 07/07/2021 14:19:39 05/09/19 10 Dilation and Curettage completed [facility] 07/07/2021 14:19:28 Imaging Results None recorded. [...] patient from pharmacy ) injectio n lot [id number] Exp 04/2026 was given into right hip [...] Updated DateTime 05/23/2024 175.26 cm 20.7 kg/m2 38317.93 g 125/78 mm[Hg] SIXTO Patricia [facility] 05/23/2024 11:19:00 Date Recorded Body height Body mass index (BMI) Body weight Systolic And Diastolic Provider Name and Address Organization Details Last Updated DateTime 08/18/2024 175.26 cm 20.6 kg/m2 75883.49 g 98/66 mm[Hg] Maria Fernanda Matilde [facility] 08/18/2024 11:36:12 Date Recorded Body height Body mass index (BMI) Body weight Systolic And Diastolic Provider Name and Address Organization Details Last Updated DateTime 10/12/2024 175.26 cm 21.1 kg/m2 44343.71 g 105/67 mm[Hg] Norma Shi [facility] 10/12/2024 15:34:05 Date Recorded Body height Body mass index (BMI) Body weight Systolic And Diastolic Provider Name and Address Organization Details Last Updated DateTime 02/21/2024 175.26 cm 20.5 kg/m2 03667.34 g 106/68 mm[Hg] Cyn Reich [facility] 02/21/2024 11:26:30 Social History Question Answer Notes LastModified by Organizat ion Details LastModified Time Tobacco Smoking Status Current Every Day Smoker Helen Willis juan manuel, [facility] 03/21/2023 11:17:26 Do You Have An Advance Directive? No [email or web address] Information n ot available 07/07/2021 How Many Years Have You Consumed Alcohol? 9 [email or web address] Information not available 07/07/2021 Are You Blind Or Do You Have Difficulty Seeing? No [email or web address] Information n ot available 07/07/2021 What Is Your Level Of Caffeine Consumption? Moderate [email or web address] Information not available 07/07/2021 How Much Tobacco Do You Chew? None [email or web address] Information not available 07/07/2021 In The 14 Days Before Symptom Onset, Have You Had Close Contact With A Laboratory-confirm ed COVID-19 While That Case Was Ill? No [email or web address] Information n ot available 07/07/2021 In The 14 Days Before Symptom Onset, Have You Had Close Contact With A Person Who Is Under Investigation For COVID-19 While That Person Was Ill? No [email or web address] Information not available 07/07/2021 Have You Been To An Area Known To Be High Risk For COVID-19? No [email or web address] Information not available 07/07/2021 Are You Deaf Or Do You Have Serious Difficulty Hearing? No Information not available 07/07/2021 What Type Of Diet Are You Following? REGULAR [email or web address] Information n ot available 07/07/2021 What Is The Highest Grade Or Level Of School You Have Completed Or The Highest Degree You Have Received? WI31876-5 erbkmr62 Information not available 07/07/2021 Are There Any Guns Present In Your Home? No [email or web address] Information not available 07/07/2021 What Is Your Current Pack Years? 10-19aaron ramesh wyibwqf51 Information not available 03/21/2023 Have You Ever Been Counseled For Unhealthy Alcohol Use? No [email or web address] Information not available 05/23/2024 Do You Use Protection During Sex? Usually kyvhpw78 Information not available 07/07/2021 Do You Use Your Seat Belt Or Car Seat Routinely? Yes [email or web address] Information not available 07/07/2021 Are You Sexually Active? Yes [email or web address] Information not available 05/23/2024 Do You Have Smoke And Carbon Monoxide Detectors In Your Home? Yes Information not available 07/07/2021 At What Age Did You Start Smoking Tobacco? 13 nslmao66 Information not available 07/07/2021 How Much Tobacco Do You Smoke? 0.25 PPD byactcoh71 Information not available 02/21/2024 Do You Use Sunscreen Routinely? Yes [email or web address] Information not available 07/07/2021 How Many Years Have You Smoked Tobacco? 17 jyatyw03 Information not available 07/07/2021 Have You Used IV Drugs? No [email or web address] Information not available 07/07/2021 Do You Have Difficulty Walking Or Climbing Stairs? No Information not available 05/23/2024 Sex: Female Functional Status Question Answer Note LastModified by Organizat ion Details LastModified Time Do you use any illicit or recreational drugs? No [email or web address] Information not available 07/07/2021 What is your level of alcohol consumption? Occasional gfnmua10 Information not available 07/07/2021 Are you currently employed? Yes [email or web address] Information not available 05/23/2024 Are you able to walk? YESWOREST pnyrox85 Information not available 07/07/2021 Are you able to care for yourself? Yes otwjgge53 Information not available 05/23/2024 What is your occupation? [employer] Information not available 08/10/2021 Do you have difficulty dressing or bathing? No yuzzkoh64 Information not available 05/23/2024 What is your exercise level? Heavy Information not available 08/10/2021 Mental Status Question Answer Note LastModified by Organization D etails LastModified Time Do you feel stressed (tense, restless, nervous, or anxious, or unable to sleep at night)? [id number] Information not available 08/10/2021 Family History Relationship Description Onset Age of this Age Resolved Age Notes LastModified by Organization Details LastModified Time Maternal Grandmother Depressive disorder [email or web address] Not available 2021 14:15:00 Maternal Grandmother Mental disorder [email or web address] Not available 2021 14:15:00 Mother Anxiety disorder dyvacp55 Not available 2021 14:15:00 Mother Depressive disorder vtkyly80 Not available 2021 14:15:00 Mother Mental disorder Not available 2021 14:15:00 Brother Mental disorder Not available 2021 14:15:00 Brother Anxiety disorder gqqfyi72 Not available 2021 14:15:00 Brother Depressive disorder fqejys06 Not available 2021 14:15:00 Sister Depressive disorder qgoziw61 Not available 2021 14:15:00 Sister Asthma nindik46 Not available 0 07/07/2021 14:15:00 Sister Mental disorder wfbaup51 Not available 2021 14:15:00 Sister Malignant tumor of cervix gpgrme49 Not available 2021 14:24:42 Maternal Aunt Depressive disorder iyzuaf16 Not available 2021 14:15:00 Maternal Aunt Mental disorder dlgogn38 Not available 2021 14:15:00 Father Anxiety disorder ybuavm61 Not available 2021 14:15:00 Father Depressive disorder sbkern13 Not available 2021 14:15:00 Father Mental disorder bpwyrm91 Not available 2021 14:15:00 Paternal Aunt Mental disorder vjlegz46 Not available 2021 14:15:00 Maternal Grandfather Mental disorder qiifjy89 Not available 2021 14:15:00 Paternal Uncle Mental disorder xvqtyp31 Not available 2021 14:15:00 Medical History Condition Response Allergies (Food, seasonal, environmental ) N Other Y Breast Cancer N Drug/Latex Allergies/Reactions N Blood Transfusion N Lung Disease N Dermatologic Disorders N Defects or Inherited Disease N Breast Problem N Gestational Diabetes N Hematologic disorders N Anesthesia Complications N History of STI N Deep Vein Thrombosis N Polycystic ovary syndrome N Anxiety Disorder Y Autoimmune disease N Arthritis N Infertility N Polyps N Acid Reflux (GERD) N History of abnormal pap N Cancer N Stroke N Varicosities N Neurologic/Epilepsy Y Endometriosis N High Cholesterol N Headaches Y Fibromyalgia N Kidney Disease N Heart Problems N Kidney or Bladder Problems N Thyroid Problems N GI Problems N Eating Disorder [...] SNOMED-CT Code Diagnosis ICD10 Code Diagnosis Note [id number] [facility] [address] [address] 07/07/2021 14:06:12 07/09/2021 13:02:31 Vaginitis 35837636 N76.0 Discussed use of mild soap like dove or ivory, cotton underwear w/out dye, hypoallerg enic detergent, wipe from front to back, avoid tub baths, keep perineum clean and dry, d/c use of baby wipes. Encouraged daily intake of yogurt or womens health probiotic. Internal and external affirm collected .Declines STD screen. Contracept ion care management 831421165 Z30.9 UPT negative. Discussed all control options [...] signed. Pt verbalized understand ing. Bipolar disorder 5403527 4 F31.9 Pt is due for refills and does not currently have a pcp. I will refill one time. She will find a new pcp. Missed period 83799093 N 92.5 . [id number] Mick Xie MD [facility] [address] [address] 08/10/2021 14:50:17 08/10/2021 15:54:08 Cyst of Bartholin's gland duct 02251531 N75.0 This patient is a 30-year-ol d [...] over 15 minutes with the patient exam. [id number] MD Betito Cox [address],[facility] [address] 09/25/2021 09:44:52 09/25/2021 10:32:36 Abnormal uterine bleeding 7526951546 9100 N93.9 [id number] MD Betito Cox [address] [address] 10/01/2021 10:46:53 10/01/2021 12:02:54 Abnormal uterine bleeding 1101922923 9100 N93.9 [id number] MD Betito Cox [address],[place] [address] 10/08/2021 14:19:24 10/12/2021 14:41:47 Contraception care management 723694933 Z30.9 Abnormal u terine bleeding 5932137873 9100 N93.9 this patient is a 30-year-ol [...] Depo-Prove ra. She was prescribed Depo-Prove ra. [id number] MD Betito Cox [address] [address] 10/12/2021 15:16:16 10/13/2021 15:14:56 Contraception care management 237533673 Z30.9 Contraception care 74770 5005 Z30.40 [id number] MD Betito Cox [address],[place] [address] 03/02/2022 10:28:09 03/02/2022 15:09:58 Contraception care management 141591053 Z30.9 [id number] MD Betito Cox [address],[place] [address] 05/27/2022 17:03:56 05/27/2022 17:28:47 Contraception care management 676519100 Z30.9 [id number] MD Betito Cox [address],[place] [address] 10/01/2022 11:58:24 10/05/2022 15:18:38 Contraception care management 831008332 Z30.9 [id number] Rhonda Mccain [facility] [address] [address] 12/23/2022 11:19:26 12/23/2022 11:44:18 Gynecologic examination 49348303 Z01.419 Take Calcium with Vitamin D 1200mg [...] naRoutine Labs PCP Contracept ion care management 118716762 Z30.9 Doing well on this method.No issues.Goi ng on 1yr Depo.If continues through 3yrs will need Dexa scan to check bone health.Rx sent x 1yr [id number] Rhonda Mccain [facility] [address] [address] 12/27/2022 17:04:33 12/27/2022 17:21:47 Contraception care management 470850384 Z30.9 Doing well on this method.No issues.Goi ng on 1yr Depo.If continues through 3yrs will need Dexa scan to check bone health.Rx sent x 1yr [id number] Rhonda Mccain [facility] [address],[place] [address] 03/21/2023 11:16:00 03/21/2023 14:25:06 Contraception care management 443741590 Z30.9 Doing well on this method.No issues.Goi ng on 1yr Depo.If continues through 3yrs will need Dexa scan to check bone health.Rx sent x 1yr [id number] Rhonda Mccain [facility] [address],[place] [address] 06/09/2023 14:53:12 06/09/2023 15:14:14 Contraception care management 543713832 Z30.9 Doing well on this method.No issues.Goi ng on 1yr Depo.If continues through 3yrs will need Dexa scan to check bone health.Rx sent x 1yr [id number] Rhonda Mccain [facility] [address],[place] [address] 08/31/2023 10:45:10 09/02/2023 13:47:48 Contraception care management 028324154 Z30.9 Doing well on this method.No issues.Goi ng on 1yr Depo.If continues through 3yrs will need Dexa scan to check bone health.Rx sent x 1yr [id number] Mick Xie MD [facility] [address],[place] [address] 11/23/2023 14:58:21 11/23/2023 15:14:54 Contraception care management 307282836 Z30.9 [id number] Mick Xie MD [place] [address],[place] [address] 02/21/2024 11:06:40 02/21/2024 11:39:42 Contraception care 140746168 Z30.40 [id number] Shari Simon [facility] [address],[place] [address] 05/23/2024 11:12:17 05/23/2024 12:24:32 Gynecologic examination 56949678 Z01.419 WWEPap - UTD/not indicated todaySTI screen [...] advised. Questions answered. Contracept ion care management 328545035 Z30.9 all BC options discussedw ould like to restart patchrx sent, r/b/a reviewedsm oking cessation encouraged (pt aware will no longer be candidate for this method at age 35 if continues smoking)di scussed possible decreased effectiven ess with current medication regimen - back up method recommende dquestions answered [id number] Mick Xie MD [place] [address] [address] 08/18/2024 11:29:12 08/18/2024 12:31:29 Female sterilization 91871992 Z30.2 Menorrhagia 441861420 N9 2.0 This patient is a 33-year-ol [...] of life and her activities of daily living.Marion elen would like nonhormona l treatment. She has not tolerated hormones well. We talked about endometria l ablation. I shared a animated video with Hurthle string the procedure. She understand s the procedure. [...] 30 minutes on her care in total. [id number] Mick Xie MD [place] [address] [address] 10/03/2024 08:51:32 10/04/2024 09:44:46 [id number] Mick Xie MD [place] [address] [address] 10/12/2024 15:03:40 10/12/2024 16:12:37 Surgical follow-up 482355504 Z09 patient presents for postop follow-up after [...] None Recorded Advance Directives Directive N: Payers Insurance Date Sequence Insurance Name Policy Number Policy Estrella Covered Member ID Estrella Member ID Guarantor Name 10/15/2024 1 [facility] ON OR AFTER 11/06/20 (MEDICAID REPLACEMENT - HMO) Karen Henderson [id number] Karen Henderson 10/08/2024 1 [facility] ON OR AFTER 11/06/20 (MEDICAID REPLACEMENT - HMO) Karen Henderson [id number] Karen Henderson 10/08/2024 1 [facility] PRIOR TO 11/06/2020 (MEDICAID REPLACEMENT - HMO) Karen Henderson [id number] Karen Henderson 10/08/2024 1 [place] [employer] Karen Henderson [id number] Karen Henderson 10/08/2024 [facility] - DOS ON OR AFTER 20 (MEDICAID REPLACEMENT - HMO) Karen Henderson [id number] Karen Henderson 03/21/2023 1 *SELF PAY* As jennifer Parishelke Notes Date Note Type Note Provider Name [...] nilm, HPV (-) denies h/o DVT/PE, HTN, Stroke/NH, cancer, liver disease, or migraine with aurashe is a tobacco smoker DEBBIE Reynoso [address], [place], [address], [facility] 05/23/2024 11:44:21 08/18/2024 text/html This patient [...] total. Mick Xie MD [address], [place], [address], [facility] 08/18/2024 12:30:08 10/12/2024 text/html patient presents for postop follow-up after endometrial ablation. She is recovering normally. She has Watery vaginal discharge. She denies any foul-smelling discharge. She denies any nausea, vomiting, fever, chills. She also had salpingectomy in recovering from that. She has no complaints. She is some abdominal tenderness. Incisions are clean dry and intact. Mick Xie MD [address], [place], [address], [facility] 10/12/2024 16:12:14 OBGyn Episode Ob Episode Information Episode Created Date Number of Fetuses Patient Bloodtype Patient rh Status Prepregnancy Weight lbs Domestic Partner Domestic Partner Phone Father Name Cane Piler Status 07/08/19 22 1 CLOSED Fetus Data First Name Last Name Admitted to NICU Weight (g) Sex Living Outcome Pediatric Complications Fetus ID Race Codes Race Delivery Type 3175.14 4 Full Term 80160 Vaginal Delivery Porfirio Calculation Initial Porfirio Date [...] Domestic Partner Domestic Partner Phone Father Name Cane Piler Status 07/08/19 22 1 CLOSED Fetus Data First Name Last Name Admitted to NICU Weight (g) Sex Living Outcome Pediatric Complications Fetus ID Race Codes Race Delivery Type 3826.95 5704 Full Term 01894 Vaginal Delivery Porfirio Calculation Initial Porfirio Date [...] Domestic Partner Domestic Partner Phone Father Name Cane Piler Status 07/08/19 22 1 CLOSED Fetus Data First Name Last Name Admitted to NICU Weight (g) Sex Living Outcome Pediatric Complications Fetus ID Race Codes Race Delivery Type , Spontane ous 82065 Porfirio Calculation Initial Porfirio Date Initial Exam [...] Domestic Partner Domestic Partner Phone Father Name Cane Piler Status 07/08/19 22 1 CLOSED Fetus Data First Name Last Name Admitted to NICU Weight (g) Sex Living Outcome Pediatric Complications Fetus ID Race Codes Race Delivery Type 3259.96 5704 Full Term 06676 Vaginal Delivery Porfirio Calculation Initial Porfirio Date [...] Domestic Partner Domestic Partner Phone Father Name Cane Piler Status 07/08/19 22 1 CLOSED Fetus Data First Name Last Name Admitted to NICU Weight (g) Sex Living Outcome Pediatric Complications Fetus ID Race Codes Race Delivery Type , Spontane ous 87356 Porfirio Calculation Initial Porfirio Date Initial Exam [...]
--- OUTSIDE RECORDS SUMMARY | 2024-11-13 09:00 | XMS_ITS | Clinical Summary ---
Author Organization [facility] Address [address] [place] [address] Care Team Providers Care Field Return Repairer Name Role Phone Janusz Cliftonie HYUN Primary Care Provider [phone] Allergies No known active allergies Medications lidocaine [...] to complete this topic Insurance Care Teams Field Return Repairer Relationship Specialty Start Date End Date Tracey Clifton NP [address] [place] [address] PCP - General Nurse Practitioner 09/02/23
--- OUTSIDE RECORDS SUMMARY | 2024-11-13 09:00 | XMS_ITS | Clinical Summary ---
Author Organization [facility] Address [address] [place] [address] Care Team Providers Care Glaze Grinder Name Role Phone Brielle Medina MD Primary Care Provider Source Comments [facility],non-[facility] Affiliates and Associated Physician Practices is amultiple site organization consisting of ambulatory clinics and hospital sitesin [place], [place], [place] and [place]. This disclosure is being madepursuant to the Care Everywhere program and may not contain all information available regarding this patient. Last updated 18.[facility] Social History Tobacco Use Types Packs/Day Years Used Date Smoking Tobacco: Never Assessed Comments Unknown Sex and Gender Information Value Date Recorded Sex Assigned at Not on file Legal Sex Female 9:53 AM CDT Gender Identity Not on file Sexual Orientation Not on file Plan of Treatment Health Maintenance Due Date Last Done Comments HIV SCREENING 2005 HEPATITIS C SCREENING 11/07/2008 DTAP/TDAP/TD VACCINES (1 - Tdap) 2009 HEPATITIS B VACCINE (1 of 3 - 19+ 3-dose series) 2009 PAP SMEAR 11/13/2011 COVID-19 VACCINE ( - 2023-2 5 season) 2024 DEPRESSION SCREENING 05/09/2024 INFLUENZA VACCINE (#1) 2025 ZOSTER VACCINE (1 of 2) 2040 [...] patient's age to complete this topic Insurance [facility] SELF PAY NO INSURANCE Member Subscriber Plan / Payer (Ef fective for All Dates) Name:Karen Beltran Member ID:Not on file Relation to Subscriber:Not on file Name:KAREN BELTRAN Subscriber ID:Not on file (Home) Address: [address] [place] [address] [place] [id number] Payer ID:Not on file Group ID:Not on file Type:Self Pay Address: [place], [place] Care Teams Glaze Grinder Relationship Specialty Start Date End Date Brielle Medina MD [address] [place], [place] [id number] PCP - General 01/24/21
--- NOTE | 2024-11-13 10:12 | WPDHPUPDATE1 ---
History and Physical Update Update Date/Time: 11/13/24 10:12 History and Physical has been reviewed, including an updated exam of the patient. There are NO changes in the patient's condition. Risks, benefits, and alternatives have been discussed and questions answered. Patient agrees to proceed with procedure.
--- NOTE | 2024-11-13 10:13 | P.OP_ITS ---
Procedure Note - Detailed Date of Procedure 11/13/24 Pre-op Diagnosis Lumbosacral Spondylosis w/o Myelopathy or Radicul. Post-op Diagnosis Same Procedure Performed Diagnostic Bilateral Lumbar Medial Branch/Dorsal Ramus Blocks at L3, L4, L5 Treating the Bilateral L4-5, L5-S1 Facet Joints Under Fluoroscopic Guidance and with Contrast Control. (4 levels blocked). Surgeon Zaid Mcpherson MD Valet Parking Attendant None. Anesthesia Local Description of Procedure INFORMED CONSENT: Risks, benefits and alternatives to the procedure were discussed in detail with the patient who expressed explicit understanding and consent to proceed. Patient was informed verbally and in written form regarding the risks associated with the procedure including the low risk of serious infection, bleeding/bruising, allergic reaction, nerve or organ injury, paralysis, procedural site pain or discomfort, worsening pain and/or mobility, failure to treat and/or disfigurement. The patient expressed explicit understanding and consent to proceed. All materials required for the procedure were available prior to procedure start. Site and side were marked prior to procedure and confirmed in the presence of the patient. PROCEDURE IN DETAIL: The patient was brought to the procedural suite and placed in the prone position. Patient was made comfortable with use of pillows under the head/chest, hips and ankles. Skin overlying the injection site on the affected side(s) was prepared broadly with ChloraPrep applicator and draped in a sterile manner. Aseptic technique was used throughout. The endplates of the vertebral bodies at the site(s) of interest were aligned in the AP view. I psilateral oblique angulation was utilized to optimize visualization of the intersection between the superior articulating process and transverse process at each target site. Local anesthesia was established by infiltration with approximately 5 mL of 1% lidocaine via a 1-1/2 inch 27-gauge needle. A 25-gauge 3.5 inch Quincke spinal needle was advanced until the needle tip contacted periosteum at the target site, right L3. Lateral view was utilized to confirm the appropriate placement of the needle tip just anterior to the facet line and superior to the pedicle. In the Lateral view, 0.25 mL of Omnipaque 300 contrast medium was injected after negative aspiration for CSF, blood or other bodily fluid, showing appropriate extra-articular spread of contrast without evidence of intravascular, foraminal or intrathecal placement. A 0.5 mL solution of 2.0% PF Lidocaine was injected after negative repeat aspiration. Appropriate spread of the injectate was confirmed with washout of previously injected contrast. No parasthesias were elicited. Needle was removed completely intact without difficulty. The same exact procedure was repeated for all remaining levels on the ipsilateral side, right L4, L5 medial branches/dorsal ramus, modified as necessary to accommodate for the new target location with identical findings and results and no evidence of complication. The same exact procedure was repeated for all remaining levels on the contralateral side, left L3, L4, L5 medial branches/dorsal ramus, modified as necessary to accommodate for the new target location with identical findings and results and no evidence of complication. Images were saved and documented in the patient chart. Patient's skin was cleaned and sterile bandage applied. The patient tolerated the procedure well. The patient was transported to the recovery area in stable condition where they were observed for an appropriate amount of time prior to discharge, without evidence of complication. Patient was instructed on the appropriate completion of a pain diary over the next 12-24 hours. The patient was instructed to avoid excessive activity for the next 48 hours, including climbing and frequent use of stairs. Showers only for 48 hours. They were instructed not to drive or operate heavy machinery for 24 hours. They are to monitor for severe headaches, fevers, chills, night sweats, erythema/swelling at the site or any other signs of infection, bleeding/bruising, bowel or bladder changes as well as new pain, weakness or numbness in the upper or lower extremity. Should they notice these changes, they are instructed to call our office immediately or report directly to the nearest Emergency Department if no answer or if after posted office hours. COMPLICATIONS: None COMMENTS: None CONTRAST WASTED: 28.5mL Omnipaque 300. Complications No immediate complications Condition Stable Disposition Same day [facility] Billing Surgery - Charge Forward: Surgery Billing
[2024-11-13 10:22] VITALS: BP 123/72; PULSE 74; RESP 15; O2SAT 100
[2024-11-13 10:43] VITALS: BP 130/63; PULSE 73; RESP 14; O2SAT 99
[2024-11-13 10:50] VITALS: BP 120/58; PULSE 80; RESP 16; O2SAT 99
[2024-11-13 10:55] VITALS: BP 132/67; PULSE 84; RESP 16; O2SAT 99
[2024-11-13 11:15] VITALS: BP 129/82; PULSE 83; RESP 16; O2SAT 98
[2024-11-13] MEDS: LIDOCAINE 1% PF INJ 5 ML VIAL 10 ML INFILTRATE (13:38)
== END 2024-11-13 11:12 | disposition home or self-care (01) ==
PROVIDERS: PCP Nurse Practitioner Adult Health; Visit Provider Anesthesiology Pain Medicine
PROC: (CPT 64493; principal; 2024-11-13 10:10)
DX: M47.817 Spondylosis without myelopathy or radiculopathy, lumbosacral region (principal)
CPT/HCPCS: 64493; 64494 ×2; 64495 ×2; 99199